=== PATIENT | female | born 1990 | race Caucasian/White ===

== ENCOUNTER → 2023-01-11 | Outpatient (CLI) | payer OTHER, SELFPAY ==
[2023-01-11 16:19] LABS: Hemoglobin A1c 5.6 % (3.8-5.6)
[2023-01-11 16:36] LABS: T4 Free Direct 0.93 ng/dL (0.76-1.46); Thyroid Stim Hormone (TSH) 1.11 uIU/mL (0.358-3.74)
== END | disposition home or self-care (01) ==
LOC: LAB 15:08
PROVIDERS: PCP Family Medicine; Visit Provider Registered Nurse
DX: N92.6 Irregular menstruation, unspecified (principal); Z86.711 Personal history of pulmonary embolism
CPT/HCPCS: 36415; 81241; 83036; 84439; 84443; 85245

== ENCOUNTER 2023-02-22 20:07 | Emergency (ER) | payer OTHER, SELFPAY ==
[2023-02-22 20:11] VITALS: BP 108/74; PULSE 73; RESP 15; TEMP 36.8; O2SAT 100; BMI 33.3
--- NOTE | 2023-02-22 20:34 | US_ITS ---
STUDY: ULTRASOUND TRANSVAGINAL CLINICAL: Female, 32 years old. right sided pelvic pain TECHNIQUE: Transabdominal and Transvaginal COMPARISON: None. FINDINGS: Normal uterine size measuring 7.7 x 4.8 x 3.4 cm in maximal craniocaudal dimension. There are no myometrial masses. Normal endometrial thickness measuring 2 mm. There are no endometrial masses, and there is no fluid in the endometrial cavity. Normal uterine cervix. Normal right ovary, measuring 3.0 x 2.7 x 1.3 cm. There are multiple follicles without a dominant cyst. Normal blood flow. Normal left ovary, measuring 2.8 x 2.5 x 1.8 cm. There are multiple follicles without a dominant cyst. Normal blood flow. There is no free fluid in the pelvis. Polycystic ovary disease: No. US/Transvaginal Non- IMPRESSION: No definite acute or significant abnormality seen. Electronically Signed: Luis Enrique Zepeda MD at 21:54 EDT ,
--- NOTE | 2023-02-22 20:37 | EX.ED.DYSGE1 ---
HPI History of Present Illness Chief Complaint: Abd Pain Informant: patient Onset/Context/Timing Onset: Days Context: Gradual Onset Narrative Narrative: Patient presents secondary to right lower quadrant abdominal pain. Patient states that she started developing pain about 5 days ago when she started spotting. Her period started yesterday and the pain worsened. She states something similar happened a month ago. She was evaluated at another facility at that time and a CT scan revealed no evidence of free fluid, ovarian cyst, or appendicitis. Patient is currently on Cipro for UTI. She just completed a course of Macrobid. She has had chills but no fever. PFSH PFS Medical History Anxiety and depression Dysmenorrhea Hx pulmonary embolism Infertility no medical history Allergy/AdvReac Type Severity Reaction Status Date / Time hydromorphone [From Dilaudid] Allergy Hives Verified 02/22/23 20:17 Sulfa (Sulfonamide Allergy Diarrhea Verified 02/22/23 20:16 Antibiotics) Family History Father Heart disease Hypertension Social History Smoking Status: Never smoker ROS ROS ED Constitutional Constitutional ED: Denies chills or fever(s) Eyes Eyes: Denies change in vision or discharge from eye(s) ENT ENT ED: Denies discharge from eye(s), rhinorrhea or sore throat Cardiovascular Cardiovascular: Denies chest pain or palpitations Respiratory/Chest Respiratory/Chest: Denies cough or dyspnea Gastrointestinal Gastrointestinal: Reports abdominal pain; Denies diarrhea, nausea or vomiting Genitourinary Genitourinary ED: Reports dysuria; Denies difficulty urinating Musculoskeletal Musculoskeletal: Denies back pain or extremity pain Integumentary Denies Abrasions or rash Neurologic Neurologic: Denies headache(s) or weakness Psychiatric Psychiatric: Denies anxiety or depression Allergic/Immunologic Allergic/Immunologic ED: Denies lip swelling or urticaria EXAM Physical Exam Const Vital Signs: 02/22/23 20:11 Temperature 98.3 F Temperature Source Temporal Pulse Rate 73 Respiratory Rate 15 Blood Pressure 108/74 Blood Pressure Mean 85 Pulse Ox 100 Oxygen Delivery Method Room Air Positive well nourished and well developed General Appearance ED: well developed HEENT Reports moist mucous membranes Eyes PERRL and EOMs intact bilaterally Chest Wall inspection of chest normal and palpation of chest normal Resp normal respiratory effort and clear to auscultation bilaterally Cardio regular rate and regular rhythm GI GI Narrative: Abdomen soft with mild tenderness in the right lower quadrant. No guarding or rebound. Active bowel sounds are noted. Back/Spine no CVA tenderness Neuro oriented x3 and no sensory deficits noted Motor Exam: strength 5/5 throughout Psych mental status grossly normal Skin no rashes or lesions noted MDM MDM MDM Narrative Medical decision making narrative: Labwork obtained to evaluate for leukocytosis, anemia, and electrolyte derangement. Urinalysis obtained to evaluate for infection/hematuria. Pelvic ultrasound obtained to evaluate for ovarian cyst or torsion. Lab Data Attestation: I reviewed the patient's lab results. Labs: Laboratory Results - last 24 hr 02/22/23 02/22/23 20:54 21:35 WBC 8.8 RBC 4.34 Hgb 11.7 L Hct 37.1 MCV 85.5 MCH 27.0 MCHC 31.5 L RDW Std Deviation 41.0 RDW Coeff of Maynor 13.3 Plt Count 221 MPV 9.2 Immature Gran % (Auto) 0.300 Neut % (Auto) 63.7 Lymph % (Auto) 28.4 [place] % (Auto) 5.9 Eos % (Auto) 1.4 Baso % (Auto) 0.3 Absolute Neuts (auto) 5.6 Absolute Lymphs (auto) 2.50 Nucleated RBC % 0 Sodium 139 Potassium 3.6 Chloride 106 Carbon Dioxide 29.0 Anion Gap 4 L BUN 12 Creatinine 0.79 Estim Creat Clear Calc 86.65 Est GFR (MDRD) Af Amer 106 Est GFR (MDRD) Non-Af 88 BUN/Creatinine Ratio 15.1 Glucose 101 Calcium 8.8 Serum , Qual NEGATIVE Urine Color Miya Urine Clarity Cloudy Urine pH 6.0 Ur Specific [place] 1.010 Urine Protein 30 H Urine Glucose (UA) Normal Urine Ketones 5 H Urine Occult Blood 250 H Urine Nitrite Negative Urine Bilirubin Negative Urine Urobilinogen Normal Ur Leukocyte Esterase 100 H Urine RBC > 100 SEEN Urine WBC 0 SEEN Ur Squamous Epith Cells 0-5 SEEN Urine Bacteria 0 SEEN Urine Mucus 0 SEEN Radiography Diagnostic Testing: Clinical Impression(s) from Imaging Studies Transvaginal US 02/22/23 20:34 IMPRESSION: No definite acute or significant abnormality seen. Electronically Signed: Luis Enrique Zepeda MD at 21:54 EDT , Treatment and Re-Evaluation :: Patient was given Toradol and IV fluids. CBC was normal white count 8.8 with normal differential. Hemoglobin is 11.7. Chemistry studies unremarkable. test is negative. Urinalysis reveals RBCs with patient is currently on her menstrual cycle. 0 bacteria are noted. Urine has been sent for culture. Pelvic ultrasound reveals no acute or significant abnormality noted. No obvious free fluid in the pelvis and no ovarian cyst. Good blood flow noted to both ovaries. Test results are discussed with the patient. She does seem to have pain that corresponds with her menstrual cycle. If she does not have an ovarian cyst that is responding to the hormone fluctuations, she may have endometriosis. She will follow-up with her [employer]. Return instructions were provided. Discharge Plan Triage Chief Complaint: Abd Pain ED Provider: Maddie Le Dx/Rx/DC Orders Clinical Impression: Pelvic pain Instructions: ED Pelvic Pain, Unknown Cause Primary Care Provider: Lindsey Farrell Referrals: Lindsey Farrell DO [Primary Care Provider] - Chelsea Valencia CNM [Med Staff - Adv Practice Prof] - 1-2 Weeks Disposition Disposition: Home, Self Care
[2023-02-22 21:02] LABS: Absolute Neutrophil Count 5.6 X10^3/uL (2.0-7.7); Basophil# 0.03 X10^3/uL; Basophil% 0.3 % (0-1); Eosinophil# 0.12 X10^3/uL; Eosinophils% 1.4 % (0-5); Hematocrit 37.1 % (37-47); Hemoglobin 11.7 g/dL (12.0-15.0); Lymphocyte % 28.4 % (19-41); Mean Corp Hgb Conc 31.5 g/dL (32-36); Mean Corpuscular Volume 85.5 fL (81-99); Mean Platelet Vol. 9.2 fl (6.2-12.0); Monocyte# 0.52 X10^3/uL; Monocyte% 5.9 % (0-10); NRBC Flagged by Analyzer 0 % (0-5); Neutrophil # 5.61 X10^3/uL (2.7-7.7); Neutrophil % 63.7 % (47-70); Platelet Count 221 K/mm3 (150-450); RBC Distribution Width CV 13.3 % (11.6-14.6); Red Blood Count 4.34 M/mm3 (4.2-5.4); White Blood Count 8.8 K/mm3 (4.4-11.0)
[2023-02-22 21:12] LABS: Internal QC Validated? YES +Cl - CLEAR BKGD; Pregnancy, Serum, hCG Quali. NEGATIVE Negative
[2023-02-22 21:15] LABS: Anion Gap 4 (5-15); BUN 12 mg/dL (7-18); BUN/Creat Ratio 15.1 RATIO (10-20); Calcium,Total 8.8 mg/dL (8.5-10.1); Chloride 106 mmol/L (98-107); Creatinine, Serum 0.79 mg/dL (0.55-1.02); EST Glomerular Filtration Rate 88 mL/min (>60); Est Glom Filt Rate - Afr Amer 106 mL/min (>60); Estimated Creatinine Clearance 86.65 ml/min; Glucose 101 mg/dL (74-106); Potassium 3.6 mmol/L (3.5-5.1); Sodium Level 139 mmol/L (136-145)
[2023-02-22] MEDS: 0.9% Normal Saline 1,000 ML 150 ML IV (21:40)
[2023-02-22] MEDS: Ketorolac 30 MG/ML Syringe IV (21:40)
[2023-02-22 21:48] LABS: Bacteria 0 SEEN /hpf (None Seen); Mucous, Urine 0 SEEN /hpf (<or=2+); White Blood Cells 0 SEEN /hpf (0-5)
[2023-02-22 21:49] LABS: Color, Urine Amber (Yellow); Glucose, Dipstick Normal (Normal); Ketone-Dipstick 5 mg/dl (Negative); Leukocyte Esterase-Dipstick 100 /ul (Negative); Nitrite-Dipstick Negative (Negative); Occult Blood-Urine 250 /ul (Negative); Protein-Dipstick 30 mg/dl (Negative); Urine Bilirubin Dipstick Negative (Negative); Urine Clarity Cloudy (Clear); Urine Urobilinogen Normal (Normal)
[2023-02-22 22:25] LABS: Red Blood Cells-Urine > 100 SEEN /hpf (0-5); Squamous Epithelial Cells - UA 0-5 SEEN /hpf (5-10)
== END 2023-02-22 23:00 | disposition home or self-care (01) ==
PROVIDERS: Emergency Provider Emergency Medicine; PCP Family Medicine; Visit Provider Emergency Medicine
DX: R10.2 Pelvic and perineal pain (principal)
CPT/HCPCS: 76830; 80048; 81001; 84703; 85025; 87086; 93976; 96361; 96374; 99282; J7030; A4216

== ENCOUNTER 2023-04-24 12:56 | Emergency (ER) | payer BC, SELFPAY ==
[2023-04-24 12:57] VITALS: BP 118/71; PULSE 60; RESP 18; TEMP 36.9; O2SAT 97
[2023-04-24 13:03] VITALS: BMI 31.8
--- NOTE | 2023-04-24 13:38 | EDS_ITS ---
HPI History of Present Illness Chief Complaint: Syncope Informant: patient and spouse/S.O. Onset/Context/Timing Onset: Today Timing: Lasts (Few seconds to less than a minute) Quality: Syncope Location: Generalized Worsened by: Nothing Relieved by: Nothing Narrative Narrative: Patient presents with a syncopal episode that occurred today. Patient was having a hysterosalpingogram. Patient states that they noticed a polyp and tried to remove it. Patient states this was painful. Patient states they stopped doing the procedure and she started to get dressed. Patient states while she was standing after she got dressed she felt lightheaded and passed out. reports that he was told that her arms clenched up and her elbows flexed just prior to her passing out. states that she was only out for few seconds to less than a minute. Patient remembers waking up on the floor wi th people around her. Patient denies any chest pain or palpitations. Patient denies any shortness of breath or cough. Currently, patient feels better laying flat in the bed. PFSH PFS Medical History Anxiety and depression Dysmenorrhea Hx pulmonary embolism Infertility Home Medications fluticasone propionate 50 mcg/actuation nasal spray,suspension (Flonase Allergy Relief) 1 spray intranasal DAILY 03/07/23 [History Last Taken Unknown] sertraline 50 mg tablet (Zoloft) 50 mg PO DAILY 04/05/23 [History Last Taken Unknown] Allergy/AdvReac Type Severity Reaction Status Date / Time hydromorphone [From Dilaudid] Allergy Hives Verified 04/24/23 13:05 Sulfa (Sulfonamide Allergy Diarrhea Verified 04/24/23 13:05 Antibiotics) Family History Father Heart disease Hypertension Surgical History no surgical history no surgical history Social History Smoking Status: Never smoker ROS ROS ED Constitutional Constitutional ED: Denies chills or fever(s) Eyes Eyes: Denies blurry vision or change in vision ENT ENT ED: Denies rhinorrhea or sore throat Cardiovascular Cardiovascular: Denies chest pain or palpitations Respiratory/Chest Respiratory/Chest: Denies cough or dyspnea Gastrointestinal Gastrointestinal: Denies nausea or vomiting Genitourinary Genitourinary ED: Denies dysuria or hematuria Musculoskeletal Musculoskeletal: Denies back pain or neck pain Integumentary Reports rash; Denies abscess Neurologic Neurologic: Reports weakness; Denies headache(s) Allergic/Immunologic Allergic/Immunologic ED: Denies mouth swelling or urticaria EXAM Physical Exam Const Vital Signs: 04/24/23 12:57 04/24/23 13:03 Temperature 98.4 F Temperature Source Oral Pulse Rate 60 Respiratory Rate 18 Respiratory Effort Normal Non-Labored Respiratory Pattern Normal Blood Pressure 118/71 Blood Pressure Mean 86 Pulse Ox 97 Oxygen Delivery Method Room Air Positive well nourished and well developed General Appearance ED: well developed HEENT Reports moist mucous membranes Neck supple and no JVD Resp normal respiratory effort and clear to auscultation bilaterally Cardio regular rate and regular rhythm GI normal to inspection, nondistended, normoactive bowel sounds and non-tender Palpation: soft Extremity normal to inspection General Extremety ED: Negative for edema or tenderness General Extremity: Negative for edema Neuro oriented x3, CN's II-XII intact bilaterally and no sensory deficits noted Sensorium / Orientation: alert Motor Exam: strength 5/5 throughout Psych mental status grossly normal Skin no rashes or lesions noted MDM MDM MDM Narrative Medical decision making narrative: Differential diagnosis includes vasovagal reaction, dehydration, cardiac dysrhythmia, atypical seizure, and intracranial bleeding. CT scan of the brain will be obtained to assess for intracranial bleeding. CBC will be obtained to assess for leukocytosis and anemia. Basic metabolic profile will be obtained to assess for electrolyte abnormality and renal function. EKG will be obtained to assess for cardiac dysrhythmia. Urinalysis will be obtained to assess for urinary tract infection. Lab Data Attestation: I reviewed the patient's lab results. Lab results narrative: CBC was reviewed and was within normal limits. Basic metabolic profile was reviewed and was within normal limits. Serum hCG was reviewed and was negative. Urinalysis was reviewed. Occult blood was 250 with greater than 100 red blood cells. There were 5-10 epithelial cells. This is most likely due to her proce dure. There is no evidence of urinary tract infection. Labs: Laboratory Results - last 24 hr 04/24/23 04/24/23 14:20 14:57 WBC 9.5 RBC 4.75 Hgb 12.5 Hct 40.2 MCV 84.6 MCH 26.3 L MCHC 31.1 L RDW Std Deviation 40.5 RDW Coeff of Maynor 13.2 Plt Count 250 MPV 8.9 Immature Gran % (Auto) 0.500 Neut % (Auto) 71.4 H Lymph % (Auto) 20.7 [place] % (Auto) 5.5 Eos % (Auto) 1.5 Baso % (Auto) 0.4 Absolute Neuts (auto) 6.8 Absolute Lymphs (auto) 1.96 Nucleated RBC % 0 Sodium 138 Potassium 4.1 Chloride 103 Carbon Dioxide 28.0 Anion Gap 7 BUN 16 Creatinine 0.75 Estim Creat Clear Calc 91.27 Est GFR (MDRD) Af Amer 114 Est GFR (MDRD) Non-Af 94 BUN/Creatinine Ratio 21.4 H Glucose 91 Calcium 9.4 Serum , Qual NEGATIVE Urine Color Yellow Urine Clarity Clear Urine pH 8.0 Ur Specific [place] 1.015 Urine Protein 15 H Urine Glucose (UA) Normal Urine Ketones Negative Urine Occult Blood 250 H Urine Nitrite Negative Urine Bilirubin Negative Urine Urobilinogen Normal Ur Leukocyte Esterase 25 H Urine RBC > 100 SEEN Urine WBC 0-5 SEEN Ur Squamous Epith Cells 5-10 SEEN Urine Bacteria 0 SEEN Urine Mucus 0 SEEN Radiography Diagnostic Testing: Clinical Impression(s) from Imaging Studies Brain CT 04/24/23 13:43 IMPRESSION: Normal unenhanced CT scan of the brain. Electronically Signed: Vernon Quinonez MD at 15:19 EDT Reading Location ID and State: [facility] / [place] , Service support , CT scan of the brain was obtained. There is no acute intracranial abnormality. This was interpreted by the radiologist and was also independently reviewed by myself. Treatment and Re-Evaluation :: Patient was given IV fluids. Patient is feeling better on reevaluation. Orthostatic vital signs were obtained and were within normal limits. Patient was advised of her findings. Patient was instructed to drink plenty of fluids. Patient was instructed to follow-up with her primary care physician and RN PERIOPERATIVE in 5 to 7 days. Patient understands and is agreeable with the plan. All ques tions were answered. Discharge Plan Triage Chief Complaint: Syncope ED Provider: Frank Ferguson Dx/Rx/DC Orders Clinical Impression: Syncope and collapse Instructions: ED Fainting, Vagal Reaction Prescriptions: No Action fluticasone propionate [Flonase Allergy Relief] 50 mcg/actuation spray,suspension 1 spray intranasal DAILY Rx Instructions: administer into each nostril sertraline [Zoloft] 50 mg tablet 50 mg PO DAILY Primary Care Provider: Lindsey Farrell Referrals: Lindsey Farrell DO [Primary Care Provider] - 5-7 Days Disposition Disposition: Home, Self Care
--- NOTE | 2023-04-24 13:43 | CT_ITS ---
STUDY: CT BRAIN WITHOUT CONTRAST REASON FOR EXAM: Female, 32 years old. Syncope RADIATION DOSAGE (If Supplied By Facility): CTDIvol = ( 44.99 ) mGy, DLP = ( 762.36 ) mGycm TECHNIQUE: Transaxial CT imaging of the brain was performed without administration of intravenous contrast material. Individualized dose optimization techniques were used for this CT. COMPARISON: No relevant priors. FINDINGS: Normal soft tissue structures. Normal calvarium. Normal size ventricles and extra-axial spaces for the patient''s age. Normal white matter tracts of the cerebral hemispheres. Normal basal ganglia and thalami. Normal brainstem. Normal cerebellum. There is no intracranial hemorrhage. There are no findings of an acute ischemic infarction. Normal visualized paranasal sinuses. CT/Brain/Head without Contrast IMPRESSION: Normal unenhanced CT scan of the brain. Electronically Signed: Vernon Quinonez MD at 15:19 EDT ,
[2023-04-24] MEDS: 0.9% Normal Saline (1000mL) 1,000 ML 1000 ML IV (14:21)
[2023-04-24 14:28] LABS: Absolute Lymphocyte Count 1.96 X10^3/uL (0.83-4.51); Absolute Neutrophil Count 6.8 X10^3/uL (2.0-7.7); Basophil# 0.04 X10^3/uL; Basophil% 0.4 % (0-1); Eosinophil# 0.14 X10^3/uL; Eosinophils% 1.5 % (0-5); Hematocrit 40.2 % (37-47); Hemoglobin 12.5 g/dL (12.0-15.0); Lymphocyte # 1.96 X10^3/ul (0.83-4.51); Lymphocyte % 20.7 % (19-41); Mean Corp Hgb Conc 31.1 g/dL (32-36); Mean Corpuscular Hgb 26.3 pg (27.0-32.0); Mean Corpuscular Volume 84.6 fL (81-99); Mean Platelet Vol. 8.9 fl (6.2-12.0); Monocyte# 0.52 X10^3/uL; Monocyte% 5.5 % (0-10); NRBC Flagged by Analyzer 0 % (0-5); Neutrophil # 6.76 X10^3/uL (2.7-7.7); Neutrophil % 71.4 % (47-70); Platelet Count 250 K/mm3 (150-450); RBC Distribution Width CV 13.2 % (11.6-14.6); RBC Distribution Width SD 40.5 fl (35.1-43.9); Red Blood Count 4.75 M/mm3 (4.2-5.4); White Blood Count 9.5 K/mm3 (4.4-11.0)
[2023-04-24 14:41] LABS: Internal QC Validated? YES +Cl - CLEAR BKGD; Pregnancy, Serum, hCG Quali. NEGATIVE Negative; Record Kit Lot#, Serum Preg. HCG0000667200
[2023-04-24 14:46] LABS: Anion Gap 7 (5-15); BUN 16 mg/dL (7-18); BUN/Creat Ratio 21.4 RATIO (10-20); Calcium,Total 9.4 mg/dL (8.5-10.1); Chloride 103 mmol/L (98-107); Creatinine, Serum 0.75 mg/dL (0.55-1.02); EST Glomerular Filtration Rate 94 mL/min (>60); Est Glom Filt Rate - Afr Amer 114 mL/min (>60); Estimated Creatinine Clearance 91.27 ml/min; Glucose 91 mg/dL (74-106); Potassium 4.1 mmol/L (3.5-5.1); Sodium Level 138 mmol/L (136-145)
[2023-04-24 15:05] LABS: Bacteria 0 SEEN /hpf (None Seen); Mucous, Urine 0 SEEN /hpf (<or=2+)
[2023-04-24 15:09] LABS: Color, Urine Yellow (Yellow); Glucose, Dipstick Normal (Normal); Ketone-Dipstick Negative (Negative); Leukocyte Esterase-Dipstick 25 /ul (Negative); Nitrite-Dipstick Negative (Negative); Occult Blood-Urine 250 /ul (Negative); Protein-Dipstick 15 mg/dl (Negative); Specific Gravity, Urine 1.015 (1.002-1.030); Urine Bilirubin Dipstick Negative (Negative); Urine Clarity Clear (Clear); Urine Urobilinogen Normal (Normal)
[2023-04-24 15:27] LABS: Red Blood Cells-Urine > 100 SEEN /hpf (0-5); White Blood Cells 0-5 SEEN /hpf (0-5)
[2023-04-24 15:28] LABS: Squamous Epithelial Cells - UA 5-10 SEEN /hpf (5-10)
[2023-04-24 15:35] VITALS: BP 103/71; BP 112/66; BP 115/66; PULSE 65; PULSE 66
== END 2023-04-24 15:42 | disposition home or self-care (01) ==
PROVIDERS: Emergency Provider Emergency Medicine; PCP Family Medicine; Visit Provider Emergency Medicine
DX: R55 Syncope and collapse (principal); Z86.711 Personal history of pulmonary embolism
CPT/HCPCS: 70450; 80048; 81001; 84703; 85025; 96360; 99285; J7030; A4216

== ENCOUNTER → 2023-04-24 | Outpatient (CLI) | payer BC, SELFPAY | END | disposition home or self-care (01) | PROVIDERS: PCP Family Medicine; Referring Provider Obstetrics & Gynecology; Visit Provider Obstetrics & Gynecology | DX: Z00.00 Encounter for general adult medical examination without abnormal findings (principal) ==

== ENCOUNTER 2023-05-23 08:29 | Day surgery (SDC) | payer BC, SELFPAY ==
[2023-05-10 14:33] LABS: Hematocrit 38.6 % (37-47); Hemoglobin 12.2 g/dL (12.0-15.0); Mean Corp Hgb Conc 31.6 g/dL (32-36); Mean Corpuscular Hgb 26.6 pg (27.0-32.0); Mean Corpuscular Volume 84.1 fL (81-99); Mean Platelet Vol. 8.7 fl (6.2-12.0); Platelet Count 219 K/mm3 (150-450); RBC Distribution Width CV 13.2 % (11.6-14.6); RBC Distribution Width SD 40.5 fl (35.1-43.9); Red Blood Count 4.59 M/mm3 (4.2-5.4); White Blood Count 7.1 K/mm3 (4.4-11.0)
[2023-05-23] VITALS (7 sets, daily range): BP systolic 115–134; BP diastolic 64–95; PULSE 59–103; RESP 14–18; TEMP 36.2–37.1; O2SAT 94–99; BMI 32.1
--- NOTE | 2023-05-23 | EMB_PTH ---
PATIENT: SHIRA LOPEZ LOC: [facility] – [place] U#:[id number] AGE/SX: 32/F ROOM: RE05/23/[address]: Dr. Maddie Medina DO : 1990 BED: DIS: 05/23/2023 SPEC #: [id number] RECD: 05/23/23 15:12 STATUS: MALACHI SELBY #: [id number] SERAFIN: 05/23/23 00:[address]: Maddie Medina DEPT: SURGICAL PATHOLOGY RECD BY: Flash Kellogg ENTERED: 05/24/23 09:52 SP TYPE: ENDOM BX/C OTHR DR: Dr. Lindsey Farrell DO Tissues: Endometrium, NOS Procedures: Surgery Specimen Level IV HEADER OPERATION: Hysteroscopy, dilation and curettage, polypectomy PRE-OP DIAGNOSIS: Endocervical polyp, bladder pain, irregular menses, dysmenorrhea, recurrent UTI TISSUE SUBMITTED: Polyp and endometrial curettings/shavings MICROSCOPIC DIAGNOSIS Endometrium, curettings: Benign endocervical polyps, inflamed. Polypoid fragments of secretory endometrium with decidual-like change. AM:hillary 05/25/2023 MICROSCOPIC DESCRIPTION Slides are reviewed. GROSS DESCRIPTION Received in fixative is one container labeled with the patient's name and designated endometrial curettings and polyp. The specimen consists of multiple irregular and polypoid fragments of light to dark maldonado soft tissue that in aggregate measure 8.0 x 3.0 x 0.3 cm. The largest fragments are sectioned and submitted along with the smaller fragments in four cassettes. / AM:hillary 05/24/2023 TC: 5 CPT: 04791
[2023-05-23 09:19] LABS: Internal QC Validated? YES +Cl - CLEAR BKGD; Pregnancy, Urine Negative Negative
[2023-05-23] MEDS: Lactated Ringers 1,000 ML 15 ML IV (09:34)
--- NOTE | 2023-05-23 11:23 | PCM.HP.BLA ---
History and Physical Date of Admission: 05/23/23 Intake Vital Signs 04/27/2313:43 05/11/2312:57 Height 5 ft 4 in 5 ft 4 in Weight: 197 lb 2 oz 197 lb BMI 33.8 33.7 BP 120/78 111/74 Intake Visit Reasons: D&C polypect,diag. lap, chromo, cysto Allergies hydromorphone [From Dilaudid] Allergy (Verified 05/11/23 12:58) HivesSulfa (Sulfonamide Antibiotics) Allergy (Verified 05/11/23 12:58) Diarrhea Medications fluticasone propionate 50 mcg/actuation nasal spray,suspension (Flonase Allergy Relief) 2 spray intranasal DAILY 03/07/23 [History Confirmed 05/11/23] sertraline 50 mg tablet (Zoloft) 50 mg PO DAILY 04/05/23 [History Confirmed 05/11/23] megestrol 40 mg tablet 40 mg PO BID #30 tabs 05/08/23 [Rx Confirmed 05/11/23] Lactobacillus acidophilus 10 billion cell capsule (Probiotic) 100 mmu cells PO DAILY 05/10/23 [History Confirmed 05/11/23] vitamin C 90 mg-zinc gluconate 15 mg-herbal complex no. 325 lozenges 1 luis PO DAILY 05/10/23 [History Confirmed 05/11/23] metronidazole 500 mg tablet 500 mg PO BID 7 days #14 tabs 05/11/23 [Rx Confirmed 05/11/23] Post menopausal: No Patient : No : No PFSH Medical History Anxiety Anxiety and depression Back pain Blackout Depression Dysmenorrhea Gastric reflux History of IBS Hx pulmonary embolism Infertility Injury of back Wears contact lenses Wears glasses Family History Father Heart disease Hypertension Social History Smoking Status: Never smoker HPI D&C polypect,diag. lap, chromo, cysto Details: SHIRA LOPEZ is a 32 year old who presents for pre-op exam. She has a large cervical polyp and infertility. An HSG was attempted and was not completed due to presence of a large polyp. She has the complaint of urinary frequency prior to menses. The plan is to look in the uterus and bladder and to perform a diagnostic laparoscopy, chromopertubation, hysteroscopy dilation and curettage, cervical polypectomy, and cystoscopy. ROS Const ROS Unobtainable: All systems reviewed & are unremarkable except as noted in H Resp Resp: Reports system reviewed and no additional complaints, except as documented; Denies cough GI GI: Reports as per HPI Psych Psych: Reports system reviewed and no additional complaints, except as documented Exam Const General: cooperative, healthy appearing, comfortable and no acute distress Resp Effort & Inspection: normal respiratory effort Skin General: no rashes or lesions noted Psych Appearance: grossly normal Speech and Movement: speech and movement normal Coding Level of Care Code Off vis,est,level 4 Diagnoses Endocervical polyp N84.1 Chronic bladder pain R39.82 Recurrent UTI N39.0 Irregular menses N92.6 Dysmenorrhea N94.6 Anxiety and depression F41.9; F32.A Assessment and Plan Assessment and Plan (1) Endocervical polyp: Status: Acute Comment: plan polypectomy (2) Chronic bladder pain: Status: Acute Comment: recommend cystoscopy (3) Recurrent UTI: Status: Acute (4) Irregular menses: Status: Acute Comment: suspect cervical polyp as etiology (5) Dysmenorrhea: Status: Acute Comment: US and recommend d and c hysteroscopy polypectomy, diagnostic laparoscopy, chromotubation and cystoscopy. (6) Anxiety and depression: Status: Acute Medications: New metronidazole 500 mg PO BID 7 days 14 tabs 0RF Plan After discussing the patient's diagnosis and treatment plan options, patient wishes to proceed with surgical management including a diagnostic laparoscopy, chromopertubation, hysteroscopy dilation and curettage, cervical polypectomy, and cystoscopy. I have discussed with the patient the risks, benefits, and alternatives of the procedure which include but are not limited to risks of anesthesia, bleeding, infection, possible damage to bowel, bladder, or surrounding vasculature which could lead to additional surgery to evaluate any complications. Patient agrees to procedure and wishes to proceed. ACOG/uptodate references given for additional information regarding procedure.
--- NOTE | 2023-05-23 11:24 | DCINST_ITS ---
Discharge Instructions Diet Discharge Diet: No restrictions Activity Discharge Activity: Return to Normal Activity, May Not Drive (for two weeks or while taking narcotic pain medications.), May Shower and May Take a Tub Bath (in 7 days) May resume sexual activity in: 1 week Weight Bearing Status: Full weight bearing Dressing / Incision Call your doctor if you observe: Using more than 1 pad per hour, Shortness of breath, Chest pain and Uncontrolled pain Suture Line Care: Avoid Pulling/Pushing and Avoid Pinching/Bending Remove Dressing in: 1 week (if present) Cleanse incision/area with: Soap & Water and Keep Dressing Clean & Dry Follow Up Care Please Follow Up With: Maddie Medina DO When: Call to make an appointment with your doctor for a follow up incision check in 1-2 weeks. Test Results: Test results from this visit will be discussed in further detail at your follow- up appointment, if applicable. Discharge Plan Admission Primary Reason for Your Visit: laparoscopy, cystoscopy, hysteroscopy dilation and curettage Attending Provider: Maddie Medina Primary Care Provider: Lindsey Farrell Discharge Orders/Prescriptions Prescriptions: New ibuprofen 800 mg tablet 800 mg PO Q8H PRN (Reason: pain) Qty: 30 0RF oxycodone-acetaminophen [Percocet] 5-325 mg tablet 1 tab PO Q4H PRN (Reason: pain) 3 Days Qty: 10 0RF Rx Instructions: 1-2 tabs q 4 hrs as needed for pain Continued fluticasone propionate [Flonase Allergy Relief] 50 mcg/actuation spray,suspension 2 spray intranasal DAILY Rx Instructions: administer into each nostril sertraline [Zoloft] 50 mg tablet 50 mg PO DAILY Probiotic 10 billion cell capsule 100 mmu cells PO DAILY vit C-Zn gluc-herbal no.325 90-15 mg lozenge 1 luis PO DAILY megestrol 40 mg tablet 40 mg PO BID Qty: 30 0RF Referrals / Follow Up: Lindsey Farrell DO [Primary Care Provider] - Disposition Disposition (needs filled in before D/C Order can be placed): Home, Self Care
[2023-05-23] MEDS: Bupivacaine 0.25% 30 ML Vial (12:29)
--- NOTE | 2023-05-23 12:56 | OP.PCM_ITS ---
Problems Associated Problem List Diagnoses (1) Endocervical polyp: (2) Chronic bladder pain: (3) Recurrent UTI: (4) Irregular menses: (5) Dysmenorrhea: (6) Infertility: Report of Operation Date of Procedure: 05/23/23 Pre-Operative Diagnosis: pelvic pain, infertility, endocervical polyp, chronic uti and bladder pain Post-Operative Diagnosis: pelvic pain, infertility, endocervical polyp, chronic uti and bladder pain, patent left fallopian tube, endometriosis on right ovary and cul-de-sac. Surgery/Procedure Performed:: hysteroscopy, polypectomy, cystoscopy, diagnostic laparoscopy, chromopertubation Description of Surgical Findings:: large endocervical polyp extending the length of the anterior uterine body, normal bladder, right ovarian and cul-de sac and uterosacral ligament en dometriosis, patent left fallopian tube, normal left ovary. small subserosal uterine fibroids. Surgeon: Maddie Medina color stripper: Amada Solis Type of Anesthesia: General Specimen's removed: endometrial curetting and endocervical polyp Drains: none Estimated Blood Loss (mL): 10cc Description of Procedure: The patient was brought to the operating room where general anesthesia was administered. She was prepped and draped in the normal sterile fashion in a dorsal supine position with legs in stirrups. Weighted speculum was placed in the vagina and the anterior lip of the cervix was grasped with a single-tooth tenaculum. There was noted to be a large endocervical polyp protruding through the cervix this was grasped with a polyp forceps and twisted and pulled until removal. The cervix was dilated to 5 mm and a 5 mm hysteroscope was placed into the uterus. There was noted to be extension of the endocervical polyp to the anterior aspect of the uterus up to the fundus. Using the Symphion on device the polyp was removed in its entirety. The Endo medial canal appeared normal with normal tubal ostia. Next, a cystoscopy was performed using a 70 degree cystoscope through the [facility]. Approximately 100 cc of saline was inserted into the bladder the dome of the bladder and sidewalls of the bladder all appeared to be normal the trigone of the bladder was also normal with normal ureteral orifices. There were no signs of ulceration masses or lesions in the bladder. Next, a uterine manipulator was inserted into the cervix and uterus in order to complete the next portion of the procedure which included a chromopertubation of the fallopian tubes. Gloves were changed and attention was turned towards the abdomen. An infraumbilical skin incision was made with a scalpel and a 5 mm trocar was inserted into the abdomen while tenting up the skin using towel clamps. Good entry was noted and the CO2 gas was used to insufflate the abdomen. The patient was placed in Trendelenburg position. The uterus was first identified and noted to have a small subserosal fibroid on the left fundus as well as the right side of the uterus just superior to the fallopian tube entry. The methylene blue dye was pushed through the uterine manipulator and there was noted to be spillage coming from the left fallopian tube only the device was replaced and adjusted and more methylene blue dilute contrast was inserted into the uterus but again did not show spillage from the right fallopian tube. There was however noted to be endometriosis in the cul-de-sac over the right uterosacral ligament that was adhering the right ovary to the cul-de-sac. Using irrigation this was carefully hydrodissected off of the cul-de-sac. The endometriosis was gently scraped using the suction device. He mostasis was achieved by just applying some pressure. Further survey of the abdomen showed normal bowel normal liver. At this time the procedure was complete all instruments were removed from the abdomen the skin was closed with a 4-0 Monocryl subcuticular stitch. The vaginal instruments were removed. The bladder was also drained of approximately 200 cc of urine with a straight catheter. The patient tolerated the procedure well sponge lap and needle counts were correct x2 and she is now being brought to the recovery room in stable condition. Complications none Admit VTE Documentation VTE Present on Admission: No VTE Mechan Device Prophylaxis: SCD's VTE Pharm Prophylaxis ordered?: No Multi Select Codes Urinary/Genital Urinary/Genital CPT Codes: 72798 Cystoscopy, 33803 Chromotubation, 84437 Hysteroscopy,EMC, Polypectomy and 19758 Lysis of adhesions, laproscopic
[2023-05-23] MEDS: Oxycodone/Apap 5/325 Tablet PO (14:17)
== END 2023-05-23 15:18 | disposition home or self-care (01) ==
LOC: SDC 08:33 → AC 08:33
PROVIDERS: Anesthesiology; PCP Family Medicine; Referring Provider Obstetrics & Gynecology; Visit Provider Obstetrics & Gynecology
PROC: 0UB98ZZ Excision of Uterus, Via Natural or Artificial Opening Endoscopic (ICD-10-PCS; CPT 58558; principal; 2023-05-23 10:45)
PROC: (CPT 49320; 2023-05-23 10:45)
DX: D25.2 Subserosal leiomyoma of uterus (principal); N39.0 Urinary tract infection, site not specified; N97.9 Female infertility, unspecified; R39.82 Chronic bladder pain; N92.6 Irregular menstruation, unspecified; N80.101 Endometriosis of right ovary, unspecified depth; N94.6 Dysmenorrhea, unspecified; F32.A Depression, unspecified; F41.9 Anxiety disorder, unspecified
CPT/HCPCS: 58558; 58662; 00952; 81025; 85027; 86850; 86900; 86901; 88305; J7120; J2405; Q9968

== ENCOUNTER → 2023-06-02 | Outpatient (CLI) | payer BC, SELFPAY ==
[2023-06-02 17:17] LABS: Absolute Lymphocyte Count 2.52 X10^3/uL (0.83-4.51); Absolute Neutrophil Count 5.8 X10^3/uL (2.0-7.7); Basophil# 0.06 X10^3/uL; Basophil% 0.7 % (0-1); Eosinophil# 0.17 X10^3/uL; Eosinophils% 1.9 % (0-5); Hemoglobin 12.7 g/dL (12.0-15.0); Lymphocyte # 2.52 X10^3/ul (0.83-4.51); Lymphocyte % 27.6 % (19-41); Mean Platelet Vol. 9.2 fl (6.2-12.0); Monocyte# 0.56 X10^3/uL; Monocyte% 6.1 % (0-10); NRBC Flagged by Analyzer 0 % (0-5); Neutrophil # 5.79 X10^3/uL (2.7-7.7); Neutrophil % 63.3 % (47-70); Platelet Count 289 K/mm3 (150-450); RBC Distribution Width CV 13.3 % (11.6-14.6); Red Blood Count 4.88 M/mm3 (4.2-5.4); White Blood Count 9.1 K/mm3 (4.4-11.0)
== END | disposition home or self-care (01) ==
LOC: LAB 16:53
PROVIDERS: PCP Family Medicine; Visit Provider Obstetrics & Gynecology
DX: N92.6 Irregular menstruation, unspecified (principal)
CPT/HCPCS: 36415; 85025

== ENCOUNTER → 2023-06-07 | Outpatient (CLI) | payer BC, SELFPAY ==
[2023-06-07 10:50] LABS: NATERA MAILED SPECIMEN
== END | disposition home or self-care (01) ==
LOC: LAB 09:44
PROVIDERS: PCP Family Medicine; Visit Provider Obstetrics & Gynecology
DX: Z15.01 Genetic susceptibility to malignant neoplasm of breast (principal); Z80.3 Family history of malignant neoplasm of breast
CPT/HCPCS: 36415

== ENCOUNTER → 2023-07-17 | Outpatient (CLI) | payer BC, SELFPAY ==
[2023-07-17 14:00] LABS: hCG Titer Quant., Serum 63 mIU/mL (1-3)
== END | disposition home or self-care (01) ==
PROVIDERS: PCP Family Medicine; Referring Provider Obstetrics & Gynecology; Visit Provider Obstetrics & Gynecology
DX: N91.2 Amenorrhea, unspecified (principal)
CPT/HCPCS: 36415; 84702

== ENCOUNTER → 2023-07-19 | Outpatient (CLI) | payer BC, SELFPAY ==
[2023-07-19 08:34] LABS: hCG Titer Quant., Serum 108 mIU/mL (1-3)
== END | disposition home or self-care (01) ==
LOC: LAB 07:20
PROVIDERS: PCP Family Medicine; Referring Provider Obstetrics & Gynecology; Visit Provider Obstetrics & Gynecology
DX: N91.2 Amenorrhea, unspecified (principal)
CPT/HCPCS: 36415; 84702

== ENCOUNTER → 2023-07-21 | Outpatient (CLI) | payer BC, SELFPAY ==
[2023-07-21 10:06] LABS: hCG Titer Quant., Serum 360 mIU/mL (1-3)
== END | disposition home or self-care (01) ==
LOC: LAB 07:03
PROVIDERS: PCP Family Medicine; Referring Provider Obstetrics & Gynecology; Visit Provider Obstetrics & Gynecology
DX: Z34.90 Encounter for supervision of normal pregnancy, unspecified, unspecified trimester (principal)
CPT/HCPCS: 36415; 84702

== ENCOUNTER → 2023-07-25 | Outpatient (CLI) | payer BC, SELFPAY ==
[2023-07-25 09:03] LABS: hCG Titer Quant., Serum 1946 mIU/mL (1-3)
== END | disposition home or self-care (01) ==
PROVIDERS: PCP Family Medicine; Referring Provider Obstetrics & Gynecology; Visit Provider Obstetrics & Gynecology
DX: N91.2 Amenorrhea, unspecified (principal)
CPT/HCPCS: 36415; 84702

== ENCOUNTER 2023-08-03 18:55 | Emergency (ER) | payer BC, SELFPAY ==
[2023-08-03 18:56] VITALS: BP 125/65; PULSE 74; RESP 14; TEMP 36.3; O2SAT 100; BMI 33.2
[2023-08-03 19:26] VITALS: BP 119/73; PULSE 72; RESP 16; O2SAT 99
--- NOTE | 2023-08-03 19:52 | US_ITS ---
STUDY: FIRST TRIMESTER OBSTETRICAL ULTRASOUND REASON FOR EXAM: Female, 32 years old bleeding LMP: Unknown. TECHNIQUE: Transvaginal TECHNICAL QUALITY: Adequate. PRIOR ULTRASOUND: None. FINDINGS: There is a gestational sac in the lower uterine segment. The mean sac diameter (MSD) measures 9 mm, indicating an estimated gestational age (EGA) of 5 weeks, 5 days. The gestational sac shape is within normal limits. nt. There is a visualized yolk sac. The yolk sac measures 2 mm. The placenta is non-visualized. There is visualization of a live embryo. The crown-rump length (CRL) measures 4 mm, indicating an estimated gestational age (EGA) of 6 weeks, 2 days. There is demonstrated cardiac activity with a heart rate of 84 bpm. The estimated gestation age (EGA) by LMP is weeks, days. The estimated date of delivery (KEVIN) by LMP is . The estimated gestation age (EGA) by US is 6 weeks, 0 days. The estimated date of delivery (KEVIN) by US is a 1524. The uterus measures 9.0 x 4.3 x 3.9 m. 1.4 cm exophytic subserosal fibroid in the anterior body the uterus. The cervix is closed. The right ovary measures 2.5 x 1.7 x 1.3 cm. There is no right ovarian cyst. There is no visualized right adnexal mass or complex lesion. The left ovary measures 2.4 x 1.9 x 1.4 cm. There is no left ovarian cyst. There is no visualized left adnexal mass or complex lesion. There is no fluid in the cul de sac. US/Transvaginal w/Preg US IMPRESSION: Living intrauterine of 6 weeks 0 days with bradycardia and located within the lower uterine segment worrisome for impending . Follow-up is recommended. N.B. : The above Results were Read Back by Artur Reynoso MD to Maddie Le MD, and understanding confirmed on 08/03/2023 21:29:32 (ET). Electronically Signed: Artur Reynoso MD at 21:30 EST ,
--- NOTE | 2023-08-03 19:53 | EDS_ITS ---
HPI HPI - Female History of Present Illness Chief Complaint: Vag Bld, Preg Informant: patient Narrative Narrative: Patient present secondary to abdominal cramping and spotting. She believes she is approximately 6 weeks . She is scheduled to have an ultrasound next week. Yesterday she started getting some cramping and some light spotting with wiping only. Today bleeding has been slightly heavier. PFSH PFSH Medical History Anxiety Anxiety and depression Back pain Blackout Depression Dysmenorrhea Gastric reflux History of IBS Hx pulmonary embolism Infertility Injury of back Wears contact lenses Wears glasses Home Medications fluticasone propionate 50 mcg/actuation nasal spray,suspension (Flonase Allergy Relief) 2 spray intranasal DAILY 03/07/23 [History Last Taken Unknown] sertraline 50 mg tablet (Zoloft) 50 mg PO DAILY 04/05/23 [History Last Taken Unknown] Lactobacillus acidophilus 10 billion cell capsule (Probiotic) 100 mmu cells PO DAILY 05/10/23 [History Last Taken Unknown] vit no.95-ferrous fumarate 28 mg-folic acid 800 mcg tablet () 1 tab PO DAILY 08/03/23 [History Last Taken Unknown] Allergy/AdvReac Type Severity Reaction Status Date / Time hydromorphone [From Dilaudid] Allergy Hives Verified 08/03/23 18:59 Sulfa (Sulfonamide Allergy Diarrhea Verified 08/03/23 18:59 Antibiotics) Family History Father Heart disease Hypertension Surgical History Status post hysteroscopy (~05/23/23) Social History Smoking Status: Never smoker ROS ROS ED Constitutional Constitutional ED: Denies chills or fever(s) Eyes Eyes: Denies discharge from eye(s) ENT ENT ED: Denies discharge from eye(s), rhinorrhea or sore throat Cardiovascular Cardiovascular: Denies chest pain or palpitations Respiratory/Chest Respiratory/Chest: Denies cough or dyspnea Gastrointestinal Gastrointestinal: Reports abdominal pain; Denies diarrhea, nausea or vomiting Genitourinary Genitourinary ED: Denies dysuria Musculoskeletal Musculoskeletal: Denies back pain or extremity pain Integumentary Denies Abrasions or rash Neurologic Neurologic: Denies headache(s) or weakness Psychiatric Psychiatric: Denies anxiety or depression Allergic/Immunologic Allergic/Immunologic ED: Denies lip swelling or urticaria EXAM Physical Exam Const Vital Signs: 08/03/23 18:56 08/03/23 19:26 Temperature 97.3 F L Temperature Source Temporal Pulse Rate 74 72 Respiratory Rate 14 16 Blood Pressure 125/65 H 119/73 Blood Pressure Mean 85 88 Pulse Ox 100 99 Oxygen Delivery Method Room Air Room Air Positive well nourished and well developed General Appearance ED: well developed HEENT Reports moist mucous membranes Eyes EOMs intact bilaterally Chest Wall inspection of chest normal and palpation of chest normal Resp normal respiratory effort and clear to auscultation bilaterally Cardio regular rate and regular rhythm GI soft to palpation and non-tender Neuro oriented x3 and no sensory deficits noted Motor Exam: strength 5/5 throughout Psych mental status grossly normal Skin no rashes or lesions noted MDM MDM MDM Narrative Medical decision making narrative: I did review patient's prior blood work in the computer and she does have blood type A positive. hCG quant will be obtained at this time as well as a pelvic ultrasound. She declines anything for pain at this time. Lab Data Attestation: I reviewed the patient's lab results. Labs: Laboratory Results - last 24 hr 08/03/23 20:12 HCG, Quant 3643 H Radiography Diagnostic Testing: Clinical Impression(s) from Imaging Studies Obstetrics Ultrasound 08/03/23 19:52 IMPRESSION: Living intrauterine of 6 weeks 0 days with bradycardia and located within the lower uterine segment worrisome for impending . Follow-up is recommended. N.B. : The above Results were Read Back by Artur Reynoso MD to Maddie Le MD, and understanding confirmed on 08/03/2023 21:29:32 (ET). Electronically Signed: Artur Reynoso MD at 21:30 EST , ADDENDUM: 08/03/232136 IMPRESSION: Living intrauterine of 6 weeks 0 days with bradycardia and located within the lower uterine segment worrisome for impending . Follow-up is recommended. N.B. : The above Results were Read Back by Artur Reynoso MD to Maddie Le MD, and understanding confirmed on 08/03/2023 21:29:32 (ET). Electronically Signed: Artur Reynoso MD at 21:30 EST , Treatment and Re-Evaluation Narrative: hCG quant is 3643. Blood type is confirmed from prior records as a positive. Pelvic ultrasound reveals living intrauterine of 6 weeks and 0 days with bradycardia and located within the lower uterine segment worrisome for impending . Test results are discussed with Miya Hernández, on-call for [facility]. She would like to have the patient call the office tomorrow with an update on her symptoms. Test results are discussed with the patient and her at bedside. I did advise them that this may result in miscarriage but at this time there is nothing we can do to stop it. They voiced understanding and agreement. Return instructions were provided. Discharge Plan Triage Chief Complaint: Vag Bld, Preg ED Provider: Maddie Le Dx/Rx/DC Orders Clinical Impression: Miscarriage, threatened, early Instructions: Miscarriage Threatened Prescriptions: No Action fluticasone propionate [Flonase Allergy Relief] 50 mcg/actuation spray,suspension 2 spray intranasal DAILY Rx Instructions: administer into each nostril sertraline [Zoloft] 50 mg tablet 50 mg PO DAILY Probiotic 10 billion cell capsule 100 mmu cells PO DAILY PNV cmb#95-ferrous fumarate-FA [] 28 mg iron- 800 mcg tablet 1 tab PO DAILY Primary Care Provider: Lindsey Farrell Referrals: Lindsey Farrell DO [Primary Care Provider] - Maddie Medina DO [Med Staff - Active Staff] - As soon as possible Activity Restrictions/Additional Instructions: Please call the OB office tomorrow with an update on your symptoms. Disposition Disposition: Home, Self Care
[2023-08-03 21:34] LABS: hCG Titer Quant., Serum 3643 mIU/mL (1-3)
[2023-08-03] MEDS: Acetaminophen 500 MG Tablet 1000 MG PO (22:27)
[2023-08-03 23:02] VITALS: PULSE 85; RESP 16; O2SAT 94
== END 2023-08-03 23:07 | disposition home or self-care (01) ==
PROVIDERS: Emergency Provider Emergency Medicine; PCP Family Medicine; Visit Provider Emergency Medicine
DX: O20.0 Threatened abortion (principal); Z3A.01 Less than 8 weeks gestation of pregnancy
CPT/HCPCS: 76817; 84702; 99283

== ENCOUNTER 2023-08-05 13:36 | Emergency (ER) | payer BC, SELFPAY ==
[2023-08-05 13:37] VITALS: BP 111/83; PULSE 75; RESP 16; TEMP 36.4; O2SAT 97; BMI 33.3
--- NOTE | 2023-08-05 13:41 | US_ITS ---
STUDY: FIRST TRIMESTER OBSTETRICAL ULTRASOUND REASON FOR EXAM: Female, 32 years old bleeding miscarriage LMP: TECHNIQUE: Transvaginal TECHNICAL QUALITY: Adequate. PRIOR ULTRASOUND: 08/03/2023 FINDINGS: There is no demonstrated intrauterine gestational sac.. The uterus measures 9.2 x 3.8 x 5.5 cm. There is no demonstrated uterine fibroid. The cervix is closed. The right ovary measures 2.6 x 2.5 x 1.8 cm. There is no right ovarian cyst. There is no visualized right adnexal mass or complex lesion. The left ovary measures 2.8 x 2.4 x 1.5 cm. There is no left ovarian cyst. There is no visualized left adnexal mass or complex lesion. There is no fluid in the cul de sac. US/Transvaginal w/Preg US IMPRESSION: Interval with no obvious residual products of conception. Electronically Signed: Artur Reynoso MD at 15:56 EST ,
[2023-08-05 13:56] VITALS: BP 135/77; PULSE 67; RESP 24; O2SAT 99
[2023-08-05 14:04] LABS: Hematocrit 39.6 % (37-47); Hemoglobin 12.4 g/dL (12.0-15.0)
--- NOTE | 2023-08-05 14:09 | EDS_ITS ---
HPI HPI - Female History of Present Illness Chief Complaint: Vag Bld, Preg Informant: patient and spouse/S.O. Narrative Narrative: 32-year-old female presenting to the emergency room out of concerns for miscarriage. Patient states that she is approximately 6 weeks . On Monday afternoon she began to have spotting and by evening was having more bleeding. She was seen in the emergency department where a single live intrauterine was noted however there was bradycardia in the fetus was in the lower uterine segment. It was worrisome for miscarriage. She states that she has continued to bleed. She had a fall and her quantitative hCG from roughly 6221-1365. She continues to have bleeding and pelvic cramping. She discussed with her CORRUGATED SHEET MATERIAL SHEETER who advised her to return to the emergency department. Her CORRUGATED SHEET MATERIAL SHEETER did call us. Patient is A positive blood type. [facility] Medical History Anxiety Anxiety and depression Back pain Blackout Depression Dysmenorrhea Gastric reflux History of IBS Hx pulmonary embolism Infertility Injury of back Wears contact lenses Wears glasses Home Medications fluticasone propionate 50 mcg/actuation nasal spray,suspension (Flonase Allergy Relief) 2 spray intranasal DAILY 03/07/23 [History Last Taken Unknown] sertraline 50 mg tablet (Zoloft) 50 mg PO DAILY 04/05/23 [History Last Taken Unknown] Lactobacillus acidophilus 10 billion cell capsule (Probiotic) 100 mmu cells PO DAILY 05/10/23 [History Last Taken Unknown] vit no.95-ferrous fumarate 28 mg-folic acid 800 mcg tablet () 1 tab PO DAILY 08/03/23 [History Last Taken Unknown] Allergy/AdvReac Type Severity Reaction Status Date / Time hydromorphone [From Dilaudid] Allergy Hives Verified 08/05/23 13:37 Sulfa (Sulfonamide Allergy Diarrhea Verified 08/05/23 13:37 Antibiotics) Family History Father Heart disease Hypertension Surgical History Status post hysteroscopy (~05/23/23) Social History Smoking Status: Never smoker ROS ROS ED Constitutional Constitutional ED: Denies chills, fever(s) or weight loss Eyes Eyes: Denies change in vision or diplopia ENT ENT ED: Denies ear pain, rhinorrhea or sore throat Cardiovascular Cardiovascular: Denies chest pain, orthopnea, palpitations or racing heartbeat Respiratory/Chest Respiratory/Chest: Denies cough, dyspnea or orthopnea Gastrointestinal Gastrointestinal: Reports abdominal pain; Denies diarrhea, nausea or vomiting Genitourinary Genitourinary ED: Reports other Details: Pelvic cramping bleeding ; Denies dysuria, hematuria or urinary frequency Musculoskeletal Musculoskeletal: Denies arthralgias or myalgias Integumentary Denies abscess or rash Neurologic Neurologic: Denies headache(s) or weakness Psychiatric Psychiatric: Denies anxiety, depression, suicidal ideation or suicidal thoughts Endocrine Endocrinology: Denies polydipsia, polyphagia or polyuria Allergic/Immunologic Allergic/Immunologic ED: Denies mouth swelling, tongue swelling or urticaria EXAM Physical Exam Const Vital Signs: 08/05/23 13:37 08/05/23 13:56 Temperature 97.6 F L Temperature Source Temporal Pulse Rate 75 67 Respiratory Rate 16 24 H Blood Pressure 111/83 H 135/77 H Blood Pressure Mean 92 96 Pulse Ox 97 99 Oxygen Delivery Method Room Air Room Air Positive well nourished and well developed General Appearance ED: well developed HEENT Reports normocephalic, head/scalp atraumatic and moist mucous membranes Eyes PERRL and EOMs intact bilaterally Neck no lymphadenopathy, supple and no JVD Resp normal respiratory effort and clear to auscultation bilaterally Cardio regular rate, regular rhythm and no murmurs GI non-distended Auscultation: normoactive bowel sounds Palpation: soft and tender suprapubic; Negative for guarding or rigid Back/Spine no CVA tenderness and normal ROM Extremity normal to inspection General Extremety ED: Negative for edema General Extremity: Negative for edema Neuro oriented x3 and CN's II-XII intact bilaterally Sensorium / Orientation: alert Motor Exam: strength 5/5 throughout Psych mental status grossly normal Mood & Affect: Negative for depressed or tearful Skin no rashes or lesions noted and no wounds MDM MDM MDM Narrative Medical decision making narrative: Hemoglobin is stable. Pelvic ultrasound was obtained. This demonstrates basically an empty uterus. After returning from ultrasound the patient passed tissue that appears to be the remnants of fetus. Patient notes that her pelvic cramping is improved. Case was reviewed with Dr. Dasilva. Patient will follow-up in the office in 2 weeks. She may return to the emergency department if she has concerns or worsening. She may also speak with on-call medical transcriber as needed. Lab Data Labs: Laboratory Results - last 24 hr 08/05/23 13:55 Hgb 12.4 Hct 39.6 Discharge Plan Triage Chief Complaint: Vag Bld, Preg ED Provider: Kendrick Onofre Dx/Rx/DC Orders Clinical Impression: Vaginal bleeding, Complete miscarriage Instructions: ED Miscarriage Spontaneous Prescriptions: No Action fluticasone propionate [Flonase Allergy Relief] 50 mcg/actuation spray,suspension 2 spray intranasal DAILY Rx Instructions: administer into each nostril sertraline [Zoloft] 50 mg tablet 50 mg PO DAILY Probiotic 10 billion cell capsule 100 mmu cells PO DAILY PNV cmb#95-ferrous fumarate-FA [] 28 mg iron- 800 mcg tablet 1 tab PO DAILY Primary Care Provider: Lindsey Farrell Referrals: Lindsey Farrell DO [Primary Care Provider] - Maddie Medina DO [Med Staff - Active Staff] - As soon as possible (Please call to arrange follow-up to be seen in 2 weeks.) Activity Restrictions/Additional Instructions: Please continue to monitor. I would expect your bleeding to improve over the next several days. If you have any concerns or worsening you may return to the emergency department or speak with your medical transcriber. Disposition Disposition: Home, Self Care
== END 2023-08-05 16:10 | disposition home or self-care (01) ==
PROVIDERS: Emergency Provider Emergency Medicine; PCP Family Medicine; Visit Provider Emergency Medicine
DX: O03.9 Complete or unspecified spontaneous abortion without complication (principal)
CPT/HCPCS: 76817; 85014; 85018; 99283; J7030; A4216

== ENCOUNTER → 2023-08-05 | Outpatient (CLI) | payer BC, SELFPAY ==
[2023-08-05 12:54] LABS: hCG Titer Quant., Serum 1614 mIU/mL (1-3)
== END | disposition home or self-care (01) ==
LOC: BFHLAB 11:52 → LAB 11:56
PROVIDERS: Advanced Practice Midwife; PCP Family Medicine; Visit Provider Obstetrics & Gynecology
DX: O20.0 Threatened abortion (principal); Z3A.00 Weeks of gestation of pregnancy not specified
CPT/HCPCS: 36415; 84702

== ENCOUNTER → 2023-08-31 | Outpatient (CLI) | payer BC, SELFPAY ==
--- NOTE | 2023-08-31 09:49 | BI_ITS ---
MAMMOGRAPHY - BILATERAL SCREENING REASON FOR EXAM: Female, 32 years old. Routine annual screening examination. PERTINENT HISTORY: Mother with breast cancer. Aunt with breast cancer. TECHNIQUE: Digital bilateral breast lona (3D mammographic acquisition) in the CC and MLO projections. 2-D mediolateral oblique (MLO) and craniocaudad (CC) views of both breasts were obtained. CAD: Full Field Digital Mammography with Computer Added Detection was performed. COMPARISON: None. Baseline examination. FINDINGS: Breast Composition: The breasts are heterogeneously dense, which may obscure small masses. There are no dominant masses or suspicious calcifications. No other significant abnormalities are identified. BI/SCRN MAMM (CAD)W/LONA BILAT IMPRESSION: Negative screening mammogram. Yearly followup mammogram recommended. (A) ASSESSMENT CATEGORY: BIRADS Category 1: Negative. A letter regarding these results will be sent to the patient by the facility within 30 days. Approximately 10% of breast cancers are not detected by mammography. A normal mammogram should not delay biopsy of a clinically suspicious abnormality. [id number] Electronically Signed: Vernon Quinonez MD at 9:55 EST ,
== END | disposition home or self-care (01) ==
LOC: OPBI 09:49
PROVIDERS: PCP Family Medicine; Referring Provider Obstetrics & Gynecology; Visit Provider Obstetrics & Gynecology
DX: Z12.31 Encounter for screening mammogram for malignant neoplasm of breast (principal)
CPT/HCPCS: 77063; 77067

== ENCOUNTER → 2023-10-14 | Outpatient (CLI) | payer BC, SELFPAY ==
--- OUTSIDE RECORDS SUMMARY | 2023-10-14 07:19 | XMS RPT_ITS | CCD ---
Author Name Unknown Address [address] [place] [address] Organization [facility] Care Team Providers Care Mechanical Repair Worker Name Role Phone Yassine, Joyce Unavailable Fabiola Gilbert N. Unavailable Unavailable Vladimir Fabiola N. Unavailable [phone] Unavailable Unavailable Unavailable PRYKHODKO, SONAM OLEKSEYOVICH Unavailable U navailable VLADIMIR FABIOLA N. Unavailable Unavailable VLADIMIR FABIOLA N. Unavailable Unavailable CULLEN BUTLER Unavailable Unavailable VLADIMIR, FABIOLA N. Unavailable Unavailable MAGAT, LAKAN K Unavailable Unavailable CULLEN BUTLER BETI Unavailable Unavailable VLADIMIR, FABIOLA N. Unavailable Unavailable PRYKHODKO, SONAM OLEKSEYOVICH Unavailable U navailable YASSINE, JOYCE Unavailable Unavailable YASSINE, JOYCE Unavailable Unavailable YASSINE, JOYCE Unavailable Unavailable YASSINE, JOYCE Unavailable Unavailable Yassine, Joyce Unavailable Unavailable Yassine, Joyce Unavailable Unavailable Prykhodko, Sonam O Unavailable Unavailable Prykhodko, Sonam O Unavailable Unavailable Yassine, Joyce Unavailable Unavailable Yassine, Joyce Unavailable Unavailable DARLEEN BARBOSA Unavailable Unavai lable FABIOLA GILBERT N. Unavailable Unavailable PATTI SOLORZANO (FEL) Unavailable Unavailable WALT NULL Unavailable Unavailable Lindsey Ty DO Primary Care Provider MARCUS MALDONADO Referring Unavailable LINDSEY TY Primary Care Unavailable LINDSEY TY Attending Unavailable LINDSEY TY Primary Care Unavailable LINDSEY TY Primary Care Unavailable ESA ZAMORA Attending Unavailable Lindsey Ty DO Primary Care Provider Allergies Allergy Classification Reported Allergen(s) Allergy Type Date of Onset Reaction(s) Facility (10 sources) HYDROmorphone; Translations: [HYDROMORPHONE] Propensity to adverse reactions to drug 7 Hives [facility] Work Phone: (8 sources) Sulfonamides (Antibiotic); Translations: [SULFA (SULFONAMIDE ANTIBIOTICS)] Propensity to adverse reactions to drug 7 Diarrhea [facility] Work Phone: (2 sources) Sulfonamides (Antibiotic) Drug Intolerance 3 [facility] Medications Current Medications Medication Drug Class(es) Dates Sig (Normalized) Sig (Original) amitriptyline hydrochloride 75 mg oral tablet (4 sources) Tricyclic Antidepressant Start: 09-04-2017 End: 09-04-2018 take 1 tablet by mouth once, then take 0.5 tablet by mouth once amitriptyline (ELAVIL) 75 MG tablet Indications: Anesthesia of skin , Paresthesia of skin Take 1 (one) tablet (75 mg total) by mouth nightly 1/2 tab nightly for first week only. 30 tablet 2 09/04/2017 09/04/2018 Active azelastine hydrochloride 0.137 mg/actuat / fluticasone propionate 0.05 mg/actuat metered dose nasal spray (6 sources) Corticosteroid, Histamine-1 Receptor Antagonist Start: 07-25-2017 take 1 spray(s) nasal route twice daily azelastine-flutica sone 137-50 mcg/spray Daphne Indications: Chronic seasonal allergic rhinitis, unspecified trigger Instill 1 (one) spray into each nostril 2 (two) times a day. 1 Bottle 3 07/25/2017 Active multivitamin (multivitamin) per tablet (5 sources) multivitamin (multivitamin) per tablet Take by mouth daily. Active sertraline 100 mg oral tablet (6 sources) Serotonin Reuptake Inhibitor Start: 07-17-2017 sertraline (ZOLOFT) 100 MG tablet Completed/Discontinued Medications Medication Drug Class(es) Dates Sig (Normalized) Sig (Original) iopamidol (Isovue-370) 76 % injection 75 mL (1 source) Start: 01-24-2023 End: 01-24-2023 iopamidol (Isovue-370) 76 % injection 75 mL 50 ml sodium chloride 9 mg/ml injection (1 source) Start: 01-24-2023 End: 01-24-2023 sodium chloride 0.9 % bolus 1,000 mL Problems Active Problems Problem Classification Problem Date Documented Da te Episodic/Chronic Abdominal pain (4 sources) Right lower quadrant pain; Translations: [Right lower quadrant pain] Onset: 01-24-2023 01-24-2023 Episodic Menstrual disorders (5 sources) Excessive and frequent menstruation; Translations: [Dysmenorrhea, unspecified] Onset: 08-22-2017 09-25-2017 Chronic Other upper respiratory disease (2 sources) Seasonal allergic rhinitis; Translations: [Vasomotor rhinitis] Chronic Other upper respiratory infections (2 sources) Chronic sinusitis, unspecified; Translations: [Chronic sinusitis, unspecified] Onset: 07-25-2017 Chronic Unclassified (2 sources) Unknown / UNK(Unknown) Onset: 02-20-2017 Past or Other Problems Problem Classification Problem Date Documented Da te Episodic/Chronic Other circulatory disease (4 sources) H/O: pulmonary embolus; Translations: [History of pulmonary embolism] Onset: 09-04-2017 09-04-2017 Episodic Other nervous system disorders (12 sources) Anesthesia of skin; Translations: [Paresthesia] Onset: 02-20-2017 09-04-2017 Episodic Other upper respiratory infections (1 source) Sinusitis Episodic Pulmonary heart disease (2 sources) Personal history of pulmonary embolism; Translations: [Personal history of pulmonary embolism] Onset: 10-06-2017 Episodic Unclassified (1 source) Follow-up Onset: 08-28-2017 Results Test Name Value Interpretation Reference Range Facil ity Vital Signs Date Time Vital Sign Value Performing Clinician Zahida keen 09-27-2017 15:35-0500 BMI (Body Mass Index) 25.42 kg/m2 Sonam Connelly [facility] Work Phone: 09-27-2017 15:35-0500 BP Diastolic 72 mm[Hg] Sonam Connelly [facility] Work Phone: 09-27-2017 15:35-0500 BP Systolic 116 mm[Hg] Sonam Connelly [facility] Work Phone: 09-27-2017 15:35-0500 Pulse (Heart Rate) 52 /min Sonam Connelly [facility] Work Phone: 09-27-2017 15:35-0500 Pulse Oximetry 98 % Sonam Connelly [facility] Work Phone: 09-27-2017 15:35-0500 Weight 67.18 kg Sonam Connelly [facility] Work Phone: 08-28-2017 14:13-0500 BMI (Body Mass Index) 25.47 kg/m2 Cullen Butler [facility] Work Phone: 08-28-2017 14:13-0500 BP Diastolic 66 mm[Hg] Cullen Butler [facility] Work Phone: 08-28-2017 14:13-0500 BP Systolic 97 mm[Hg] Cullen Butler [facility] Work Phone: 08-28-2017 14:13-0500 Pulse (Heart Rate) 60 /min Cullen Butler [facility] Work Phone: 08-28-2017 14:13-0500 Pulse Oximetry 98 % Cullen Butler [facility] Work Phone: 08-28-2017 14:13-0500 Weight 67.31 kg Cullen Butler [facility] Work Phone: 07-25-2017 10:23-0500 BMI (Body Mass Index) 26.19 kg/m2 Cullen Butler [facility] Work Phone: 07-25-2017 10:23-0500 BP Diastolic 66 mm[Hg] Cullen Carrie [facility] Work Phone: 07-25-2017 10:23-0500 BP Systolic 99 mm[Hg] Cullen Butler [facility] Work Phone: 07-25-2017 10:23-0500 Height 162.6 cm Cullen Butler [facility] Work Phone: 07-25-2017 10:23-0500 Pulse (Heart Rate) 61 /min Cullen Butler [facility] Work Phone: 07-25-2017 10:23-0500 Pulse Oximetry 98 % Cullen Butler [facility] Work Phone: 07-25-2017 10:23-0500 Weight 69.22 kg Cullen Butler [facility] Work Phone: Encounters Encounter Date Encounter Type Care Provider Facility Start: 01-25-2023 End: 01-25-2023 [facility] Start: 01-24-2023 End: 01-24-2023 Emergency department patient visit LINDSEY TY [facility] Start: 01-24-2023 End: 01-24-2023 Emergency department patient visit Esa Zamora MD Work Phone: [facility] ED Procedures Date Procedure Procedure Detail Performing Clinician Start: 01-24-2023 Ecg routine ecg w/le ast 12 lds trcg only w/o i&r Marcus Maldonado MD Work Phone: Start: 01-24-2023 Ct abdomen & pelvis w/contrast material Esa Zamora MD Work Phone: Start: 01-24-2023 Comprehensive metabo lic panel Esa Zamora MD Work Phone: Start: 01-24-2023 Urinalysis complete panel - Urine Esa Zamora MD Work Phone: Start: 01-24-2023 Urine test visual color cmprsn meths Esa Zamora MD Work Phone: Start: 01-24-2023 Urnls dip stick/tabl et reagent auto microscopy Esa Zamora MD Work Phone: Start: 01-24-2023 Comprehensive metabo lic panel Lindsey Ty DO Work Phone: Plan of Treatment Date Care Activity Detail Author Start: 2038 Zoster Vaccines (1 of 2) Zoster Vaccines (1 of 2) [facility] Start: 04-14-2023 Influenza vaccination [facility] Start: 02-14-2021 COVID-19 Vaccine (3 - Booster for Pfizer series) COVID-19 Vaccine (3 - Booster for Pfizer series) [facility] Start: 08-22-2020 Screening for malignant neoplasm of cervix PAP SMEAR [facility] Work Phone: Start: 2018 Screening for malignant neoplasm of cervix [facility] Start: 01-29-2018 Ambulatory 01/29/2018 Office Visit Dentistry [facility] Start: 01-21-2018 DTaP/Tdap/Td Vaccines (2 - Td or Tdap) DTaP/Tdap/Td Vaccines (2 - Td or Tdap) [facility] Start: 10-10-2017 Ambulatory 10/10/2017 Clinical Support Otolaryngology Cullen Butler, AQUARIST [address] [facility] [address] [place] [address] [phone] [facility] Start: 10-06-2017 Ambulatory 10/06/2017 Procedure visit Neurology Darin Ding MD [address] [place] [address] [phone] [facility] Neurological [facility] Start: 10-05-2017 Ambulatory 10/05/2017 Appointment Cardiology Joyce Arita MD [address] [place] [phone] [facility] Start: 09-28-2017 Ambulatory 09/28/2017 Clinical Support Otolaryngology Cullen Butler CNP [address] [facility] [address] [place] [address] [phone] [facility] Start: 09-20-2017 Ambulatory 09/20/2017 Office Visit Dentistry [facility] Start: 09-04-2017 Ambulatory 09/04/2017 Clinical Support Obstetrics and Gynecology Darleen Barobsa CNP [address] [place] [phone] Laquita Vaca, TECHNOLOGIST [facility] SWITCHING OPERATOR Start: 08-29-2017 Ambulatory 08/29/2017 Office Visit Dentistry [facility] Start: 08-28-2017 Ambulatory 08/28/2017 Office Visit Otolaryngology Cullen Butler, AQUARIST [address] [facility] [address] [place] [address] [phone] [facility] Start: 04-14-2017 Influenza vaccination SEQUENTIAL INFLUENZA VACCINE (#1) [facility] Work Phone: Start: 2009 Screening for malignant neoplasm of cervix Pap Smear [facility] Start: 07-28-2009 Varicella vaccination Varicella Vaccines (1 of 2 - 2-dose childhood series) [facility] Start: 12-11-2008 HPV Vaccines (3 - 3-dose series) HPV Vaccines (3 - 3-dose series) [facility] Start: 2006 Diabetes mellitus screening Diabetes Screening [facility] Start: 2006 Hepatitis C screening Hepatitis C Screening [facility] Start: 2000 Depression Screening Depression Screening [facility] Start: 1988 Hepatitis B Vaccines (1 of 3 - 3-dose series) Hepatitis B Vaccines (1 of 3 - 3-dose series) [facility] Start: 1988 HIV screening HIV Screening [facility] Start: 1988 Screening for malignant neoplasm of cervix PAP SMEAR [facility] Work Phone: Start: 1988 Tetanus vaccination TETANUS EVERY 10 YR [facility] Work Phone: End: 08-29-[address] Sinus Routine Chronic sinusitis, unspecified location 1 Occurrences starting 08/29/2017 until 08/29/2018 [facility] Work Phone: ECG 12 lead ECG 12 lead CV E CG STAT 01/24/2023 10:24 PM EDT [facility] Work Phone: OUTSIDE PROCEDURE SCAN OUTSIDE P ROCEDURE SCAN Procedures Ordered: 01/24/2023 [facility] Immunizations Immunization Date Immunization Notes Care Provider Fa cility 06-30-2009 influenza virus vacc ine, unspecified formulation Esa Zamora MD Work Phone: [facility] PBC Lasers 08-12-2008 HPV, unspecified formulation Esa Zamora MD Work Phone: [facility] Payers Date Payer Category Payer Unknown [employer] Brittany INFANTE [id number] 2022-Present [address] [place] [address] Commercial [id number] 2022 Unknown [id number] 2017 Medicaid [id number] 2017 Medicaid [id number] Medicaid xxxxxxxxxxxx [id number] Unknown xxxxxxxxxxx [id number] Social History Date Type Detail Facility Start: 09-27-2017 End: 01-24-2023 Tobacco smoking status NEIS Never smoker [place] Phone: Start: 1988 Sex Assigned At Not on file [facility] Work Phone: Start: 07-05-2017 Tobacco smoking status NEIS Unknown if ever smoked [facility] Work Phone: Start: 01-24-2023 Tobacco use and exposure Smokeless tobacco non-user [facility] Start: 01-24-2023 Alcohol intake Ex-drinker (finding) [facility] Start: 01-24-2023 History of Social function [facility] Start: 01-24-2023 Alcohol Use Disorder Identification Test - Consumption [AUDIT-C] [facility] How often to you hav e a drink containing alcohol? Never [facility] How many standard dr inks containing alcohol do you have on a typical day? Patient does not drink [facility] Start: 01-14-2023 End: 01-24-2023 Exposure to SARS-CoV-2 (event) Not sure [facility] Hospital Discharge instructions 06-13-2023 Discharge Instructions Note Date & Type Note Facility 01-24-2023 Hospital Discharg e instructions Esa Zamora MD - 01/24/2023 8:43 PM EDT You were seen at the [facility] emergency department for abdominal pain that radiates around your side. Your labs and CT were normal. Your urine had some trace signs of infection but mostly was concerning for blood which is expected on your menstrual cycle. Please take the antibiotics your doctor prescribed you this morning and follow-up with them. documented in this encounter [facility] Emergency department Note 01-24-2023 Raven Park RN - 01/24/2023 4:31 PM EDT Note Date & Type Note Facility 01-24-2023 Emergency department Note For matting of this note might be different from the original. EKG called. Raven Park RN 01/24/23 1632 [facility] Emergency department Note 01-24-2023 Raven Park RN - 01/24/2023 4:31 PM EDTHeruba Park RN - 01/24/2023 4:30 PM EDT Note Date & Type Note Facility 01-24-2023 Emergency department Note For matting of this note might be different from the original. EKG called. Raven Park RN 01/24/23 1632 Patient presents with RLQ abdominal pain, N/V that started several days ago. PCP wanted CT scan, to which insurance declined. Patient advised to come in for concern for appendicitis. Raven Park RN 01/24/23 1631 documented in this encounter [facility] Emergency department Note 01-24-2023 Raven Park RN - 01/24/2023 4:30 PM EDT Note Date & Type Note Facility 01-24-2023 Emergency department Note For matting of this note might be different from the original. Patient presents with RLQ abdominal pain, N/V that started several days ago. PCP wanted CT scan, to which insurance declined. Patient advised to come in for concern for appendicitis. 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, face, and jaw Chronic vasomotor rhinitis Diagnosis Chronic sinusitis, unspecifi ed location - Primary Chronic allergic rhinitis, u nspecified seasonality, unspecified trigger PND (post-nasal drip) Postnasal drip Diagnosis Chronic seasonal allergic rh initis, unspecified trigger - Primary Sinusitis, unspecified chron icity, unspecified location Chronic vasomotor rhinitis Summary Purpose Family History No Family History Records FoundNo Family History Records FoundNo Family History Records FoundNo Family History Records FoundNo Family History Records FoundNo Family History Records Found Advance Directives No Advanced Directives Records FoundNo Advanced Directives Records FoundNo Advanced Directives Records FoundNo Advanced Directives Records FoundNo Advanced Directives Records FoundNo Advanced Directives Records Found Additional Source Comments INFORMATION SOURCE (unrecogn ized section and content) DATE CREATED AUTHOR AUTHOR'S ORGANIZ ATION 02/02/2018 [facility] DATE CREATED AUTHOR AUTHOR'S ORGANIZ ATION 02/06/2018 [facility] DATE CREATED AUTHOR AUTHOR'S ORGANIZ ATION 02/07/2018 [facility] DATE CREATED AUTHOR AUTHOR'S ORGANIZ ATION 03/19/2022 [facility] DATE CREATED AUTHOR AUTHOR'S ORGANIZ ATION 01/28/2023 [facility] Reason for Visit (unrecogniz ed section and content) Scheduled Active and Recently Administ ered Medications (unrecognized section and content) PRN Medication Order 01/22/2023 01/23/2023 01/24/2023 iopamidol (Isovue-370) 76 % injection 75 mL (COMPLETED) 75 mL, IntraVENous, IMG once PRN, contrast, Starting on Mon01/24/23 at 1955, For 1 dose 1954 (Given - Provid er: Talia Perales) Care Teams (unrecognized sec tion and content) Mechanical Repair Worker Relationship Specialty Start Date End Date Bud Lindsey, [address] [place] [address] PCP - General 03/15/22 FOR RECORDS PERTAINING TO PATIENTS WHO ARE OR HAVE BEEN ENROLLED IN A CHEMICAL DEPENDENCY/SUBSTANCEABUSE PROGRAM, SOME INFORMATION MAY BE OMITTED. This clinical summary was aggregated from multiple sources. Caution should be exercised in using it in the provision of clinical care. This summary normalizes information from multiple sources, and as a consequence, information in this document may materially change the coding, format and clinical context of patient data. In addition, data may be omitted in some cases. CLINICAL DECISIONS SHOULD BE BASED ON THE PRIMARY CLINICAL RECORDS. [employer] provides no warranty or guarantee of the accuracy or completeness of information in this document.
[2023-10-14 08:35] LABS: hCG Titer Quant., Serum 63 mIU/mL (1-3)
== END | disposition home or self-care (01) ==
LOC: LAB 07:16
PROVIDERS: PCP Family Medicine; Referring Provider Obstetrics & Gynecology; Visit Provider Obstetrics & Gynecology
DX: N91.2 Amenorrhea, unspecified (principal)
CPT/HCPCS: 36415; 84702

== ENCOUNTER → 2023-10-16 | Outpatient (CLI) | payer BC, SELFPAY ==
--- OUTSIDE RECORDS SUMMARY | 2023-10-16 07:21 | XMS RPT_ITS | CCD ---
Author Name Unknown Address [id number] [place] [address] Organization [facility] Care Team Providers Care Sales Performance Analyst Name Role Phone Yassine, Joyce Unavailable Fabiola Gilbert N. Unavailable Unavailable Vladimir Fabiola N. Unavailable Unavailable Unavailable Unavailable PRYKHODKO, SONAM OLEKSEYOVICH Unavailable U navailable VLADIMIR FABIOLA N. Unavailable Unavailable VLADIMIR FABIOLA N. Unavailable Unavailable CULLEN BUTLER Unavailable Unavailable VLADIMIR, FABIOLA N. Unavailable Unavailable MAGAT, LAKAN K Unavailable Unavailable CULLEN BUTLER BETI Unavailable Unavailable VLADIMIR, FABIOLA N. Unavailable Unavailable PRYKHODKO, SONAM OLEKSEYOVICH Unavailable U navailable YASSINE, JOYCE Unavailable Unavailable YSASINE, JOYCE Unavailable Unavailable YASSINE, JOYCE Unavailable Unavailable [...] to adverse reactions to drug 7 Hives [facility] Work Phone: (8 sources) Sulfonamides (Antibiotic); Translations: [SULFA (SULFONAMIDE ANTIBIOTICS)] Propensity to adverse reactions to drug 7 Diarrhea [facility] Work Phone: (2 sources) Sulfonamides (Antibiotic) Drug Intolerance 3 [facility] Medications Current Medications Medication Drug Class(es) Dates [...] route twice daily azelastine-flutica sone 137-50 mcg/spray [place] Indications: Chronic seasonal allergic rhinitis, unspecified trigger [...] (Body Mass Index) 25.42 kg/m2 Sonam Connelly [facility] Work Phone: 09-27-2017 15:35-0500 BP Diastolic 72 mm[Hg] Sonam Connelly [facility] Work Phone: 09-27-2017 15:35-0500 BP Systolic 116 mm[Hg] Sonam Connelly [facility] Work Phone: 09-27-2017 15:35-0500 Pulse (Heart Rate) 52 /min Sonam Connelly [facility] Work Phone: 09-27-2017 15:35-0500 Pulse Oximetry 98 % Sonam Connelly [facility] Work Phone: 09-27-2017 15:35-0500 Weight 67.18 kg Sonam Connelly [facility] Work Phone: 08-28-2017 14:13-0500 BMI (Body Mass Index) 25.47 kg/m2 Cullen Butler [facility] Work Phone: 08-28-2017 14:13-0500 BP Diastolic 66 mm[Hg] Cullen Butler [facility] Work Phone: 08-28-2017 14:13-0500 BP Systolic 97 mm[Hg] Cullen Butler [facility] Work Phone: 08-28-2017 14:13-0500 Pulse (Heart Rate) 60 /min Cullen Butler [facility] Work Phone: 08-28-2017 14:13-0500 Pulse Oximetry 98 % Cullen Butler [facility] Work Phone: 08-28-2017 14:13-0500 Weight 67.31 kg Cullen Butler [facility] Work Phone: 07-25-2017 10:23-0500 BMI (Body Mass Index) 26.19 kg/m2 Cullen Butler [facility] Work Phone: 07-25-2017 10:23-0500 BP Diastolic 66 mm[Hg] Cullen Carrie [facility] Work Phone: 07-25-2017 10:23-0500 BP Systolic 99 mm[Hg] Cullen Butler [facility] Work Phone: 07-25-2017 10:23-0500 Height 162.6 cm Cullen Butler [facility] Work Phone: 07-25-2017 10:23-0500 Pulse (Heart Rate) 61 /min Cullen Butler [facility] Work Phone: 07-25-2017 10:23-0500 Pulse Oximetry 98 % Cullen Butler [facility] Work Phone: 07-25-2017 10:23-0500 Weight 69.22 kg Cullen Butler [facility] Work Phone: Encounters Encounter Date Encounter Type Care Provider Facility Start: 01-25-2023 End: 01-25-[address] [facility] Start: 01-24-2023 End: 01-24-2023 Emergency department patient visit LINDSEY TY [facility] Start: 01-24-2023 End: 01-24-2023 Emergency department patient visit Esa Zamora MD Work Phone: [facility] ED Procedures Date Procedure Procedure Detail Performing [...] of 2) Zoster Vaccines (1 of 2) [facility] Start: 04-14-2023 Influenza vaccination [facility] Start: 02-14-2021 COVID-19 Vaccine (3 - Booster for Pfizer series) COVID-19 Vaccine (3 - Booster for Pfizer series) [facility] Start: 08-22-2020 Screening for malignant neoplasm of cervix PAP SMEAR [facility] Work Phone: Start: 2018 Screening for malignant neoplasm of cervix [facility] Start: 01-29-2018 Ambulatory 01/29/2018 Office Visit Dentistry [facility] Start: 01-21-2018 DTaP/Tdap/Td Vaccines (2 - Td or Tdap) DTaP/Tdap/Td Vaccines (2 - Td or Tdap) [facility] Start: 10-10-2017 Ambulatory 10/10/2017 Clinical Support Otolaryngology Cullen Butler, TRUST OFFICER [address] [facility] [address] [place] [address] [phone] [facility] Start: 10-06-2017 Ambulatory 10/06/2017 Procedure visit Neurology Darin Ding MD [address] [place] [address] [phone] [facility] Start: 10-05-2017 Ambulatory 10/05/2017 Appointment Cardiology Joyce Arita MD [address] [place] [id number] [facility] Start: 09-28-2017 Ambulatory 09/28/2017 Clinical Support Otolaryngology Cullen Butler CNP [address] [facility] [address] [place] [address] [phone] [facility] Start: 09-20-2017 Ambulatory 09/20/2017 Office Visit Dentistry [facility] Start: 09-04-2017 Ambulatory 09/04/2017 Clinical Support Obstetrics and Gynecology Darleen Barbosa CNP [address] [place] [id number] Laquita Vaca, TECHNOLOGIST [facility] JUDGE Start: 08-29-2017 Ambulatory 08/29/2017 Office Visit Dentistry [facility] Start: 08-28-2017 Ambulatory 08/28/2017 Office Visit Otolaryngology Cullen Butler, TRUST OFFICER [address] [facility] [address] [place] [address] [phone] [facility] Start: 04-14-2017 Influenza vaccination SEQUENTIAL INFLUENZA VACCINE (#1) [facility] Work Phone: Start: 2009 Screening for malignant neoplasm of cervix Pap Smear [facility] Start: 07-28-2009 Varicella vaccination Varicella Vaccines (1 of 2 - 2-dose childhood series) [facility] Start: 12-11-2008 HPV Vaccines (3 - 3-dose series) HPV Vaccines (3 - 3-dose series) [facility] Start: 2006 Diabetes mellitus screening Diabetes Screening [facility] Start: 2006 Hepatitis C screening Hepatitis C Screening [facility] Start: 2000 Depression Screening Depression Screening [facility] Start: 1988 Hepatitis B Vaccines (1 of 3 - 3-dose series) Hepatitis B Vaccines (1 of 3 - 3-dose series) [facility] Start: 1988 HIV screening HIV Screening [facility] Start: 1988 Screening for malignant neoplasm of cervix PAP SMEAR [facility] Work Phone: Start: 1988 Tetanus vaccination TETANUS EVERY 10 YR [facility] Work Phone: End: 08-29-[address] Sinus Routine Chronic sinusitis, unspecified location 1 Occurrences starting 08/29/2017 until 08/29/2018 [facility] Work Phone: ECG 12 lead ECG 12 lead CV E CG STAT 01/24/2023 10:24 PM EDT [facility] Work Phone: OUTSIDE PROCEDURE SCAN OUTSIDE P ROCEDURE SCAN Procedures Ordered: 01/24/2023 [facility] Immunizations Immunization Date Immunization Notes Care Provider Fa cility 06-30-2009 influenza virus vacc ine, unspecified formulation Esa Zamora MD Work Phone: [facility] [place] 08-12-2008 HPV, unspecified formulation Esa Zamora MD Work Phone: [facility] Payers Date Payer Category Payer Unknown [employer] INFANTE [id number] 2022-Present [address] [place] [address] Commercial [id number] 2022 Unknown [id number] 2017 Medicaid [id number] 2017 Medicaid [id number] Medicaid [id number] Unknown xxxxxxxxxxx [id number] Social History Date Type Detail Facility Start: 09-27-2017 End: 01-24-2023 Tobacco smoking status MTIS Never smoker [facility] Phone: Start: 1988 Sex Assigned At Not on file [facility] Work Phone: Start: 07-05-2017 Tobacco smoking status MTIS Unknown if ever smoked [facility] Work Phone: Start: 01-24-2023 Tobacco use and exposure Smokeless tobacco non-user [facility] Start: 01-24-2023 Alcohol intake Ex-drinker (finding) [facility] Start: 01-24-2023 History of Social function [facility] Start: 01-24-2023 Alcohol Use Disorder Identification Test - Consumption [AUDIT-C] [facility] How often to you hav e a drink containing alcohol? Never [facility] How many standard dr inks containing alcohol do you have on a typical day? Patient does not drink [facility] Start: 01-14-2023 End: 01-24-2023 Exposure to SARS-CoV-2 (event) Not sure [facility] Hospital Discharge instructions 06-13-2023 Discharge Instructions Note Date & Type Note Facility 01-24-2023 Hospital Discharg e instructions Esa Zamora MD - 01/24/2023 8:43 PM EDT You were seen at the [facility] emergency department for abdominal pain that radiates around your side. Your labs and CT were normal. Your urine had some trace signs of infection but mostly was concerning for blood which is expected on your menstrual cycle. Please take the antibiotics your doctor prescribed you this morning and follow-up with them. documented in this encounter [facility] Emergency department Note 01-24-2023 Raven Park RN - 01/24/2023 4:31 PM EDT Note Date & Type Note Facility 01-24-2023 Emergency department Note For matting of this note might be different from the original. EKG called. Raven Park RN 01/24/23 1632 [facility] Emergency department Note 01-24-2023 Raven Park RN [...] RN 01/24/23 1631 documented in this encounter [facility] Emergency department Note 01-24-2023 Raven Park RN [...] for appendicitis. Raven Park RN 01/24/23 1631 [facility] note Note Date & Type [...] DATE CREATED AUTHOR AUTHOR'S ORGANIZ ATION 02/02/2018 [facility] DATE CREATED AUTHOR AUTHOR'S ORGANIZ ATION 02/06/2018 [facility] DATE CREATED AUTHOR AUTHOR'S ORGANIZ ATION 02/07/2018 [facility] DATE CREATED AUTHOR AUTHOR'S ORGANIZ ATION 03/19/2022 [facility] DATE CREATED AUTHOR AUTHOR'S ORGANIZ ATION 01/28/[address] [facility] Reason for Visit (unrecogniz ed section and content) Scheduled Active and Recently Administ ered Medications (unrecognized section and content) PRN Medication Order 01/22/2023 01/23/2023 01/24/2023 iopamidol (Isovue-370) 76 % injection 75 mL (COMPLETED) 75 mL, IntraVENous, IMG once PRN, contrast, Starting on Mon01/24/23 at 1955, For 1 dose 1954 (Given - Provid er: Talia Perales) Care Teams (unrecognized sec tion and content) Sales Performance Analyst Relationship Specialty Start Date End Date Bud Lindsey, [address] [place] [address] PCP - General 03/15/22 FOR RECORDS PERTAINING [...] BE BASED ON THE PRIMARY CLINICAL RECORDS. [employer] provides no warranty or guarantee of the accuracy or completeness of information in this document.
[2023-10-16 08:37] LABS: hCG Titer Quant., Serum 176 mIU/mL (1-3)
== END | disposition home or self-care (01) ==
LOC: LAB 07:14
PROVIDERS: PCP Family Medicine; Visit Provider Obstetrics & Gynecology
DX: N91.2 Amenorrhea, unspecified (principal)
CPT/HCPCS: 36415; 84702

== ENCOUNTER 2023-10-28 20:21 | Emergency (ER) | payer BC, SELFPAY ==
[2023-10-28 20:22] VITALS: BP 112/76; PULSE 81; RESP 18; TEMP 36.8; O2SAT 100; BMI 33.2
--- NOTE | 2023-10-28 20:43 | EDS_ITS ---
HPI <DANIEL Gonzalez - Last Filed: 10/28/23 22:02> HPI - Female History of Present Illness Chief Complaint: Vag Bld, Preg Narrative Narrative: 32-year-old female A1 states she is approximately 7 weeks by dates. Since the started she has had light daily spotting. She had hCG levels done by [facility] which looked normal. She has had occasional sharp twinges of pain in her lower abdomen but the twinges of pain and soreness have increased in frequency and severity over the last 2 days. No increase in bleeding. No urinary symptoms. She also has a history of ex lap and cervical cyst biopsy and was told she had mild endometriosis. PFSH <DANIEL Gonzalez - Last Filed: 10/28/23 22:02> PFS Medical History Anxiety Anxiety and depression Back pain Blackout Depression Dysmenorrhea Gastric reflux History of IBS Hx pulmonary embolism Infertility Injury of back Wears contact lenses Wears glasses Home Medications sertraline 50 mg tablet (Zoloft) 50 mg PO DAILY 04/05/23 [History Last Taken Un known] Lactobacillus acidophilus 10 billion cell capsule (Probiotic) 100 mmu cells PO DAILY 05/10/23 [History Last Taken Unknown] vit no.95-ferrous fumarate 28 mg-folic acid 800 mcg tablet () 1 tab PO DAILY 08/03/23 [History Last Taken Unknown] Allergy/AdvReac Type Severity Reaction Status Date / Time hydromorphone [From Dilaudid] Allergy Hives Verified 10/28/23 20:25 Sulfa (Sulfonamide Allergy Diarrhea Verified 10/28/23 20:25 Antibiotics) Family History Father Heart disease Hypertension Surgical History Status post hysteroscopy (~05/23/23) Social History Smoking Status: Never smoker ROS <DANIEL Gonzalez - Last Filed: 10/28/23 22:02> ROS ED ROS Narrative Constitutional: Negative for fever, chills, malaise. GI: Negative for abdominal pain. Negative for nausea, vomiting, diarrhea, constipation, melena, hematochezia. : Negative for dysuria, hematuria or frequency. EXAM <DANIEL Gonzalez - Last Filed: 10/28/23 22:02> Physical Exam Narrative Exam Narrative: CONST: Patient sitting in no acute distress. EYES: Normal inspection. NECK: Normal inspection. RESP: No respiratory distress, CTAB. CVS: Regular rate and rhythm, no murmur, no gallop. ABD: Soft with mild bilateral lower quadrant tenderness, no guarding or rebound, nondistended. SKIN: Color normal, no rash, warm, dry, intact. EXTREMITIES: Normal appearance, no pedal edema. NEURO: Oriented x4. PSYCH: Normal affect. Const Vital Signs: 10/28/23 20:22 Temperature 98.3 F Temperature Source Temporal Pulse Rate 81 Respiratory Rate 18 Blood Pressure 112/76 Blood Pressure Mean 88 Pulse Ox 100 Oxygen Delivery Method Room Air <Dr. Joey Gupta MD - Last Filed: 10/28/23 22:37> Physical Exam Const Vital Signs: 10/28/23 20:22 Temperature 98.3 F Temperature Source Temporal Pulse Rate 81 Respiratory Rate 18 Blood Pressure 112/76 Blood Pressure Mean 88 Pulse Ox 100 Oxygen Delivery Method Room Air MDM <DANIEL Gonzalez - Last Filed: 10/28/23 22:02> [facility] Narrative Medical decision making narrative: Patient is approximately 7 weeks by dates. Throughout the she has had daily light spotting and twinges of lower abdominal pain. She has increased abdominal pain over the last few days prompting her to come in. No increase in bleeding. She appears well and nontoxic. Stable vital signs. Benign abdominal exam. Pelvic exam shows closed os with very small amount of blood in the vaginal vault. HCG on 10/14/23 was 63, 10/16/23 was 176, and today is 17,918. Blood type is A+ so she does not need RhoGAM. Urinalysis is negative. An magnetic testing technician is not available for formal transvaginal ultrasound at this time. I used a bedside ultrasound for transabdominal but was unable to visualize the uterus as this is very early still low in the pelvis. Her METAL DOOR ASSEMBLER has been paged. Lab Data Attestation: I reviewed the patient's lab results. Labs: Laboratory Results - last 24 hr 10/28/23 10/28/23 20:45 20:55 HCG, Quant [id number] H Urine Color Yellow Urine Clarity Clear Urine pH 7.0 Ur Specific [employer] 1.020 Urine Protein 15 H Urine Glucose (UA) Normal Urine Ketones 5 H Urine Occult Blood 150 H Urine Nitrite Negative Urine Bilirubin Negative Urine Urobilinogen Normal Ur Leukocyte Esterase 25 H Urine RBC 0-5 SEEN Urine WBC 0-5 SEEN Ur Squamous Epith Cells 0-5 SEEN Amorphous Sediment 1+ Urine Bacteria 0 SEEN Urine Mucus 0 SEEN Blood Type A POSITIVE <Dr. Joey Gupta MD - Last Filed: 10/28/23 22:37> MDM MDM Narrative Medical decision making narrative: Patient is approximately 7 weeks by dates. Throughout the she has had daily light spotting and twinges of lower abdominal pain. She has increased abdominal pain over the last few days prompting her to come in. No increase in bleeding. She appears well and nontoxic. Stable vital signs. Benign abdominal exam. Pelvic exam shows closed os with very small amount of blood in the vaginal vault. HCG on 10/14/23 was 63, 10/16/23 was 176, and today is 17,918. Blood type is A+ so she does not need RhoGAM. Urinalysis is negative. An magnetic testing technician is not available for formal transvaginal ultrasound at this time. I used a bedside ultrasound for transabdominal but was unable to visualize the uterus as this is very early still low in the pelvis. Her METAL DOOR ASSEMBLER has been paged. I have personally performed a face to face assessment of the patient and have reviewed the PAULA Note. I performed a substantive portion of the visit including all aspects of the following. My fuller findings include: History is remarkable for vaginal bleeding since beginning of . Patient has Rh+ blood. She believes she is O+. Patient does complain of frequency without dysuria or hematuria. She presently has no vaginal or pelvic pain. There is no history of ectopic. There is no history of endometriosis or STI. She has had threatened miscarriage in the past. She is seen by Dr. Dasilva. She denies pain referred to her left shoulder or orthostatic symptoms. Exam is is unremarkable. There is slight bleeding noted. Os is closed. Positive Smock's sign. No cervical motion tenderness. Uterus is appropriate size for presumed dates. Transabdominal ultrasound revealed uterine cavity. I did not appreciate a yolk sac or fetus. Ovaries appeared normal. Medical Decision Making differential diagnosis is threatened miscarriage versus incomplete miscarriage versus spontaneous complete miscarriage. Also need to evaluate for blood type since there is no record of blood type at [facility] and she is uncertain of her blood type. UA was obtained there is no evidence of infection. Dr. Dasilva her patient service coordinator is on-call. She was notified. She would like an outpatient ultrasound and for patient to contact the office on Monday. Other additions or changes: [None] Lab Data Labs: Laboratory Results - last 24 hr 10/28/23 10/28/23 20:45 20:55 HCG, Quant [id number] H Urine Color Yellow Urine Clarity Clear Urine pH 7.0 Ur Specific [employer] 1.020 Urine Protein 15 H Urine Glucose (UA) Normal Urine Ketones 5 H Urine Occult Blood 150 H Urine Nitrite Negative Urine Bilirubin Negative Urine Urobilinogen Normal Ur Leukocyte Esterase 25 H Urine RBC 0-5 SEEN Urine WBC 0-5 SEEN Ur Squamous Epith Cells 0-5 SEEN Amorphous Sediment 1+ Urine Bacteria 0 SEEN Urine Mucus 0 SEEN Blood Type A POSITIVE Management Discussion w/another healthcare provider: Channel [facility] (Procurement Professional, Dr. Maddie Dasilva) Discharge Plan Triage Chief Complaint: Vag Bld, Preg ED Midlevel Provider: Marielle Sandoval ED Provider: Joey Gupta Dx/Rx/DC Orders Clinical Impression: Abdominal pain during , Miscarriage, threatened, early Instructions: Miscarriage Threatened Prescriptions: No Action sertraline [Zoloft] 50 mg tablet 50 mg PO DAILY Probiotic 10 billion cell capsule 100 mmu cells PO DAILY PNV cmb#95-ferrous fumarate-FA [] 28 mg iron- 800 mcg tablet 1 tab PO DAILY Other Ambulatory Orders: Pelvic w/ Transvaginal (Routine) Facility: [facility] - Location: [facility] Ordered By: Dr. Joey Gupta Primary Care Provider: Lindsey Farrell Referrals: Lindsey Farrell DO [Primary Care Provider] - Maddie Medina DO [Med Staff - Active Staff] - 2 Days Disposition Disposition: Home, Self Care
[2023-10-28 21:02] LABS: Bacteria 0 SEEN /hpf (None Seen); Mucous, Urine 0 SEEN /hpf (<or=2+)
[2023-10-28 21:04] LABS: Color, Urine Yellow (Yellow); Glucose, Dipstick Normal (Normal); Ketone-Dipstick 5 mg/dl (Negative); Leukocyte Esterase-Dipstick 25 /ul (Negative); Nitrite-Dipstick Negative (Negative); Occult Blood-Urine 150 /ul (Negative); Protein-Dipstick 15 mg/dl (Negative); Urine Bilirubin Dipstick Negative (Negative); Urine Clarity Clear (Clear); Urine Urobilinogen Normal (Normal)
[2023-10-28 21:10] LABS: Amorphous Sediment 1+; Red Blood Cells-Urine 0-5 SEEN /hpf (0-5); White Blood Cells 0-5 SEEN /hpf (0-5)
[2023-10-28 21:11] LABS: Squamous Epithelial Cells - UA 0-5 SEEN /hpf (5-10)
--- OUTSIDE RECORDS SUMMARY | 2023-10-28 21:22 | XMS RPT_ITS | CCD ---
Author Name Unknown Address [address] [place] [address] Organization [facility] [place] Care Team Providers Care Bakery Helper Name Role Phone Yassine, Joyce Unavailable Fabiola [...] to adverse reactions to drug 7 Hives [facility] Work Phone: (8 sources) Sulfonamides (Antibiotic); Translations: [SULFA (SULFONAMIDE ANTIBIOTICS)] Propensity to adverse reactions to drug 7 Diarrhea [facility] Work Phone: (2 sources) Sulfonamides (Antibiotic) Drug Intolerance 3 [facility] Medications Current Medications Medication Drug Class(es) Dates [...] route twice daily azelastine-flutica sone 137-50 mcg/spray [place] Indications: Chronic seasonal allergic rhinitis, unspecified trigger [...] (Body Mass Index) 25.42 kg/m2 Sonam Connelly [facility] Work Phone: 09-27-2017 15:35-0500 BP Diastolic 72 mm[Hg] Sonam Connelly [facility] Work Phone: 09-27-2017 15:35-0500 BP Systolic 116 mm[Hg] Sonam Connelly [facility] Work Phone: 09-27-2017 15:35-0500 Pulse (Heart Rate) 52 /min Sonam Connelly [facility] Work Phone: 09-27-2017 15:35-0500 Pulse Oximetry 98 % Sonam Connelly [facility] Work Phone: 09-27-2017 15:35-0500 Weight 67.18 kg Sonam Connelly [facility] Work Phone: 08-28-2017 14:13-0500 BMI (Body Mass Index) 25.47 kg/m2 Cullen Butler [facility] Work Phone: 08-28-2017 14:13-0500 BP Diastolic 66 mm[Hg] Cullen Butler [facility] Work Phone: 08-28-2017 14:13-0500 BP Systolic 97 mm[Hg] Cullen Butler [facility] Work Phone: 08-28-2017 14:13-0500 Pulse (Heart Rate) 60 /min Cullen Butler [facility] Work Phone: 08-28-2017 14:13-0500 Pulse Oximetry 98 % Cullen Butler [facility] Work Phone: 08-28-2017 14:13-0500 Weight 67.31 kg Cullen Butler [facility] Work Phone: 07-25-2017 10:23-0500 BMI (Body Mass Index) 26.19 kg/m2 Cullen Butler [facility] Work Phone: 07-25-2017 10:23-0500 BP Diastolic 66 mm[Hg] Cullen Carrie [facility] Work Phone: 07-25-2017 10:23-0500 BP Systolic 99 mm[Hg] Cullen Butler [facility] Work Phone: 07-25-2017 10:23-0500 Height 162.6 cm Cullen Butler [facility] Work Phone: 07-25-2017 10:23-0500 Pulse (Heart Rate) 61 /min Cullen Butler [facility] Work Phone: 07-25-2017 10:23-0500 Pulse Oximetry 98 % Cullen Butler [facility] Work Phone: 07-25-2017 10:23-0500 Weight 69.22 kg Cullen Butler [facility] Work Phone: Encounters Encounter Date Encounter Type Care Provider Facility Start: 01-25-2023 End: 01-25-2023 [facility] Start: 01-24-2023 End: 01-24-2023 Emergency department patient visit LINDSEY TY [facility] Start: 01-24-2023 End: 01-24-2023 Emergency department patient visit Esa Zamora MD Work Phone: [facility] ED Procedures Date Procedure Procedure Detail [...] of 2) Zoster Vaccines (1 of 2) [facility] Start: 04-14-2023 Influenza vaccination [facility] Start: 02-14-2021 COVID-19 Vaccine (3 - Booster for Pfizer series) COVID-19 Vaccine (3 - Booster for Pfizer series) [facility] Start: 08-22-2020 Screening for malignant neoplasm of cervix PAP SMEAR [facility] Work Phone: Start: 2018 Screening for malignant neoplasm of cervix [facility] Start: 01-29-2018 Ambulatory 01/29/2018 Office Visit Dentistry [facility] Start: 01-21-2018 DTaP/Tdap/Td Vaccines (2 - Td or Tdap) DTaP/Tdap/Td Vaccines (2 - Td or Tdap) [facility] Start: 10-10-2017 Ambulatory 10/10/2017 Clinical Support Otolaryngology Cullen Butler, CONCRETE MIXER OPERATOR [address] [facility] [address] [place] [address] [phone] [facility] Start: 10-06-2017 Ambulatory 10/06/2017 Procedure visit Neurology Darin Ding MD [address] [place] [address] [phone] [facility] Neu[facility] Start: 10-05-2017 Ambulatory 10/05/2017 Appointment Cardiology Joyce Arita MD [address] [place] [id number] [facility] Start: 09-28-2017 Ambulatory 09/28/2017 Clinical Support Otolaryngology Cullen Butler CNP [address] [facility] [address] [place] [address] [phone] [facility] Start: 09-20-2017 Ambulatory 09/20/2017 Office Visit Dentistry [facility] Start: 09-04-2017 Ambulatory 09/04/2017 Clinical Support Obstetrics and Gynecology Darleen Barbosa CNP [address] [place] [phone] Laquita Vaca, TECHNOLOGIST [facility] SUPERVISORY CBP OFFICER Start: 08-29-2017 Ambulatory 08/29/2017 Office Visit Dentistry [facility] Start: 08-28-2017 Ambulatory 08/28/2017 Office Visit Otolaryngology Cullen Butler, CONCRETE MIXER OPERATOR [address] [facility] [address] [place] [address] [phone] [facility] Start: 04-14-2017 Influenza vaccination SEQUENTIAL INFLUENZA VACCINE (#1) [facility] Work Phone: Start: 2009 Screening for malignant neoplasm of cervix Pap Smear [facility] Start: 07-28-2009 Varicella vaccination Varicella Vaccines (1 of 2 - 2-dose childhood series) [facility] Start: 12-11-2008 HPV Vaccines (3 - 3-dose series) HPV Vaccines (3 - 3-dose series) [facility] Start: 2006 Diabetes mellitus screening Diabetes Screening [facility] Start: 2006 Hepatitis C screening Hepatitis C Screening [facility] Start: 2000 Depression Screening Depression Screening [facility] Start: 1988 Hepatitis B Vaccines (1 of 3 - 3-dose series) Hepatitis B Vaccines (1 of 3 - 3-dose series) [facility] Start: 1988 HIV screening HIV Screening [facility] Start: 1988 Screening for malignant neoplasm of cervix PAP SMEAR [facility] Work Phone: Start: 1988 Tetanus vaccination TETANUS EVERY 10 YR [facility] Work Phone: End: 08-29-[address] Sinus Routine Chronic sinusitis, unspecified location 1 Occurrences starting 08/29/2017 until 08/29/2018 [facility] Work Phone: ECG 12 lead ECG 12 lead CV E CG STAT 01/24/2023 10:24 PM EDT [facility] Work Phone: OUTSIDE PROCEDURE SCAN OUTSIDE P ROCEDURE SCAN Procedures Ordered: 01/24/2023 [facility] Immunizations Immunization Date Immunization Notes Care Provider Fa cility 06-30-2009 influenza virus vacc ine, unspecified formulation Esa Zamora MD Work Phone: [facility] [employer] 08-12-2008 HPV, unspecified formulation Esa Zamora MD Work Phone: [facility] Payers Date Payer Category Payer Unknown [employer] Brittany INFANTE [id number] 2022-Present [address] [place] [address] Commercial [id number] 2022 Unknown [id number] 2017 Medicaid [id number] 2017 Medicaid [id number] Medicaid [id number] Unknown xxxxxxxxxxx [id number] Social History Date Type Detail Facility Start: 09-27-2017 End: 01-24-2023 Tobacco smoking status SDIS Never smoker [facility] Phone: Start: 1988 Sex Assigned At Not on file [facility] Work Phone: Start: 07-05-2017 Tobacco smoking status SDIS Unknown if ever smoked [facility] Work Phone: Start: 01-24-2023 Tobacco use and exposure Smokeless tobacco non-user [facility] Start: 01-24-2023 Alcohol intake Ex-drinker (finding) [facility] Start: 01-24-2023 History of Social function [facility] Start: 01-24-2023 Alcohol Use Disorder Identification Test - Consumption [AUDIT-C] [facility] How often to you hav e a drink containing alcohol? Never [facility] How many standard dr inks containing alcohol do you have on a typical day? Patient does not drink [facility] Start: 01-14-2023 End: 01-24-2023 Exposure to SARS-CoV-2 (event) Not sure [facility] Discharge instructions 06-13-2023 Discharge Instructions Note Date & Type Note Facility 01-24-2023 Hospital Discharg e instructions Esa Zamora MD - 01/24/2023 8:43 PM EDT You were seen at the [facility] emergency department for abdominal pain that radiates around your side. Your labs and CT were normal. Your urine had some trace signs of infection but mostly was concerning for blood which is expected on your menstrual cycle. Please take the antibiotics your doctor prescribed you this morning and follow-up with them. documented in this encounter [facility] Emergency department Note 01-24-2023 Raven Park RN - 01/24/2023 4:31 PM EDT Note Date & Type Note Facility 01-24-2023 Emergency department Note For matting of this note might be different from the original. EKG called. Raven Park RN 01/24/23 1632 [facility] Emergency department Note 01-24-2023 Raven Park RN - 01/24/2023 4:31 PM EDTHeurba Park RN - 01/24/2023 4:30 PM EDT [...] RN 01/24/23 1631 documented in this encounter [facility] Emergency department Note 01-24-2023 Raven Park RN [...] for appendicitis. Raven Park RN 01/24/[address] [facility] Note Date & [...] DATE CREATED AUTHOR AUTHOR'S ORGANIZ ATION 02/02/2018 [facility] DATE CREATED AUTHOR AUTHOR'S ORGANIZ ATION 02/06/2018 [facility] DATE CREATED AUTHOR AUTHOR'S ORGANIZ ATION 02/07/2018 [facility] DATE CREATED AUTHOR AUTHOR'S ORGANIZ ATION 03/19/2022 [facility] DATE CREATED AUTHOR AUTHOR'S ORGANIZ ATION 01/28/2023 [facility] Reason for Visit (unrecogniz ed section and content) Scheduled Active and Recently Administ ered Medications (unrecognized section and content) PRN Medication Order 01/22/2023 01/23/2023 01/24/2023 iopamidol (Isovue-370) 76 % injection 75 mL (COMPLETED) 75 mL, IntraVENous, IMG once PRN, contrast, Starting on Mon01/24/23 at 1955, For 1 dose 1954 (Given - Provid er: Talia Perales) Care Teams (unrecognized sec tion and content) Bakery Helper Relationship Specialty Start Date End Date Bud Lindsey, [address] [place] [address] PCP - General 03/15/22 FOR RECORDS PERTAINING [...] BE BASED ON THE PRIMARY CLINICAL RECORDS. [employer] provides no warranty or guarantee of the accuracy or completeness of information in this document.
[2023-10-28 21:43] LABS: hCG Titer Quant., Serum 17918 mIU/mL (1-3)
[2023-10-28 22:37] VITALS: BP 116/55; PULSE 82; RESP 16; O2SAT 97
[2023-10-28 22:51] VITALS: BP 125/64; PULSE 76; RESP 18; TEMP 36.8; O2SAT 96
== END 2023-10-28 22:58 | disposition home or self-care (01) ==
PROVIDERS: Physician Assistant; Emergency Provider Emergency Medicine; PCP Family Medicine; Visit Provider Emergency Medicine
DX: O99.891 Other specified diseases and conditions complicating pregnancy (principal); O20.0 Threatened abortion; R10.9 Unspecified abdominal pain; Z3A.01 Less than 8 weeks gestation of pregnancy; Z79.899 Other long term (current) drug therapy; Z86.711 Personal history of pulmonary embolism
CPT/HCPCS: 81001; 84702; 86900; 86901; 99282; A4216

== ENCOUNTER 2023-10-29 12:28 | Emergency (ER) | payer BC, SELFPAY ==
[2023-10-29 12:30] VITALS: BP 103/61; PULSE 81; RESP 14; TEMP 35.7; O2SAT 97; BMI 32.8
--- NOTE | 2023-10-29 12:51 | US_ITS ---
STUDY: FIRST TRIMESTER OBSTETRICAL ULTRASOUND REASON FOR EXAM: Female, 32 years old pain and bleeding LMP: 09/09/2019 TECHNIQUE: Transabdominal and Transvaginal TECHNICAL QUALITY: Adequate. PRIOR ULTRASOUND: None. FINDINGS: There is visualization of a single gestational sac in a normal intrauterine position. The mean sac diameter (MSD) measures 1.2 cm, indicating an estimated gestational age (EGA) of 6 weeks, 0 days. The gestational sac shape is within normal limits. There is a visualized yolk sac. Yolk sac measures 0.28 cm The placenta is non-visualized. There is visualization of an embryo. The crown-rump length (CRL) measures 0.17 cm, indicating an estimated gestational age (EGA) of 6 weeks, 0 days. There is NO demonstrated cardiac activity The estimated gestation age (EGA) by LMP is 7 weeks, 1 days. The estimated date of delivery (KEVIN) by LMP is 06/15/2024. The estimated gestation age (EGA) by US is 6 weeks, 0 days. The estimated date of delivery (KEVIN) by US is 06/23/2024. The uterus measures 9.1 x 5.6 x 4.7 cm. There is a 1.2 cm anterior fibroid The cervix is closed. The right ovary measures 2.5 x 2.0 x 1.5 cm. There is no right ovarian cyst. There is no visualized right adnexal mass or complex lesion. The left ovary measures 2.4 x 2.9 x 1.6 cm. There is no left ovarian cyst. There is no visualized left adnexal mass or complex lesion. There is no fluid in the cul de sac. US/Transvaginal w/Preg US IMPRESSION: There is a normal-appearing intrauterine gestational sac containing a pole measuring 6 weeks 0 days by ultrasound.. There is a yolk sac but no heart rate identified. It may be too early to determine viability. Recommend serial beta-hCG studies and follow-up ultrasound in 3-5 days to reevaluate No suspicious adnexal mass or free fluid Small uterine fibroid Electronically Signed: Alex Hidalgo MD at 14:01 EDT ,
--- NOTE | 2023-10-29 12:52 | EDS_ITS ---
HPI HPI - Female History of Present Illness Chief Complaint: Vag Bld, Preg Detail of Chief Complaint: Pelvic pain vaginal bleeding with Informant: patient and spouse/S.O. Narrative Narrative: Patient presents with pelvic pain and vaginal bleeding and thinks is about 7 weeks . Patient states that she has been spotting since she found out she was . At times passes some small clots less than dime size. She was seen in the emergency department last night and had a quant that was 17,000. No formal ultrasound was done. Urinalysis was unremarkable. Patient continues to have pain. Patient's PARQUET FLOOR LAYER'S HELPER Dr. Dasilva called and asked that we obtain a formal pelvic ultrasound to rule out ectopic. Currently rates her pain a 5 out of 10. Pain mostly left-sided. Patient is with recent miscarriage in July 2023. PFSH PFSH Medical History Anxiety Anxiety and depression Back pain Blackout Depression Dysmenorrhea Gastric reflux History of IBS Hx pulmonary embolism Infertility Injury of back Wears contact lenses Wears glasses Home Medications sertraline 50 mg tablet (Zoloft) 50 mg PO DAILY 04/05/23 [History Last Taken Unknown] Lactobacillus acidophilus 10 billion cell capsule (Probiotic) 100 mmu cells PO DAILY 05/10/23 [History Last Taken Unknown] vit no.95-ferrous fumarate 28 mg-folic acid 800 mcg tablet () 1 tab PO DAILY 08/03/23 [History Last Taken Unknown] Allergy/AdvReac Type Severity Reaction Status Date / Time hydromorphone [From Dilaudid] Allergy Hives Verified 10/29/23 12:29 Sulfa (Sulfonamide Allergy Diarrhea Verified 10/29/23 12:29 Antibiotics) Family History Father Heart disease Hypertension Surgical History Status post hysteroscopy (~05/23/23) Social History Smoking Status: Never smoker ROS ROS ED Review of Systems ROS Unobtainable: other Constitutional Constitutional ED: Reports lethargy; Denies chills, fever(s), sweats or weight loss Eyes Eyes: Denies blurry vision, change in vision or diplopia ENT ENT ED: Denies rhinorrhea or sore throat Cardiovascular Cardiovascular: Denies chest pain, orthopnea or racing heartbeat Respiratory/Chest Respiratory/Chest: Denies cough, dyspnea, dyspnea on exertion, orthopnea or sputum Gastrointestinal Gastrointestinal: Denies abdominal pain, diarrhea, nausea or vomiting Genitourinary Genitourinary ED: Reports other Details: Pelvic pain vaginal bleeding ; Denies dysuria, hematuria or urinary frequency Musculoskeletal Musculoskeletal: Denies arthralgias, back pain, myalgias or neck pain Integumentary Denies abscess, Abrasions or rash Neurologic Neurologic: Denies headache(s) or weakness Psychiatric Psychiatric: Denies anxiety, depression or suicidal thoughts Endocrine Endocrinology: Denies polydipsia, polyphagia or polyuria Hematologic/Lymphatic Hematologic/Lymphatic: Denies easy bleeding, easy bruising or lymphadenopathy Allergic/Immunologic Allergic/Immunologic ED: Denies mouth swelling, tongue swelling or urticaria EXAM Physical Exam Const Vital Signs: 10/29/23 12:30 10/29/23 14:32 Temperature 96.3 F L 97.8 F Temperature Source Temporal Pulse Rate 81 87 Respiratory Rate 14 16 Blood Pressure 103/61 105/78 Blood Pressure Mean 75 87 Pulse Ox 97 99 Oxygen Delivery Method Room Air Positive well nourished and well developed General Appearance ED: well developed and NAD HEENT Reports TM's clear and moist mucous membranes normocephalic and atraumatic; Negative for trauma or tenderness Tympanic Membrane ED: Yes TM's clear Eyes PERRL and EOMs intact bilaterally General Eye ED: Negative for pale conjunctiva or scleral icterus Neck no lymphadenopathy, supple and no JVD General: Negative for tenderness Chest Wall inspection of chest normal and palpation of chest normal Chest: Negative for tenderness Resp normal respiratory effort and clear to auscultation bilaterally Effort and Inspection: Negative for respiratory distress or pain with movement Auscultation: Negative for rhonchi, wheezes or diminished lung sounds Cardio regular rate, regular rhythm, S1 normal heart sound, S2 normal heart sound and no murmurs Peripheral Pulses: pulses 2+ throughout GI normal to inspection, nondistended, normoactive bowel sounds, soft to palpation, non-tender, non-distended and no masses GI Narrative: Mild tenderness on exam over the left lower quadrant and pelvic region. There is no rebound, rigidity, or purulent signs. No mass palpated. Patient also with some tenderness over the suprapubic region and right lower quadrant. Back/Spine no CVA tenderness and no thoracic nor lumbar tenderness Extremity normal to inspection General Extremety ED: Negative for edema General Extremity: Negative for edema Neuro oriented x3, CN's II-XII intact bilaterally, no sensory deficits noted and gait normal Sensorium / Orientation: awake, alert, oriented to person, oriented to place and oriented to time Motor Exam: strength 5/5 throughout and strength abnormal Psych mental status grossly normal Skin no rashes or lesions noted and no wounds MDM MDM MDM Narrative Medical decision making narrative: Patient presents with lower abdomen pain in and vaginal bleeding. Pelvic ultrasound was obtained and showed gestational sac intrauterine with fe carolin pole measuring 6 weeks 0 days was a yolk sac present but no heartbeat noted. Postulated may be early viable recommended follow-up and repeat quant's. Will discuss case with [employer] F[employer]OR L[employer]ER'S HELPER on-call Dr. Dasilva who send the patient in. CBC with differential obtained showed a white count of 7.2 with hemoglobin 11.7 and platelet count of 234. Patient does not have an acute abdomen on exam. Lab Data Attestation: I reviewed the patient's lab results. Labs: Laboratory Results - last 24 hr 10/29/23 13:08 WBC 7.2 RBC 4.42 Hgb 11.7 L Hct 37.7 MCV 85.3 MCH 26.5 L MCHC 31.0 L RDW Std Deviation 41.3 RDW Coeff of Maynor 13.3 Plt Count 234 MPV 9.2 Immature Gran % (Auto) 0.300 Neut % (Auto) 66.9 Lymph % (Auto) 25.4 [place] % (Auto) 6.2 Eos % (Auto) 0.8 Baso % (Auto) 0.4 Absolute Neuts (auto) 4.8 Absolute Lymphs (auto) 1.84 Nucleated RBC % 0 Radiography Diagnostic Testing: Clinical Impression(s) from Imaging Studies Obstetrics Ultrasound 10/29/23 12:51 IMPRESSION: There is a normal-appearing intrauterine gestational sac containing a pole measuring 6 weeks 0 days by ultrasound.. There is a yolk sac but no heart rate identified. It may be too early to determine viability. Recommend serial beta-hCG studies and follow-up ultrasound in 3-5 days to reevaluate No suspicious adnexal mass or free fluid Small uterine fibroid Electronically Signed: Alex Hidalgo MD at 14:01 EDT , Discharge Plan Triage Chief Complaint: Vag Bld, Preg ED Provider: Tad Abdullahi Dx/Rx/DC Orders Clinical Impression: , threatened Instructions: Miscarriage Threatened Prescriptions: No Action sertraline [Zoloft] 50 mg tablet 50 mg PO DAILY Probiotic 10 billion cell capsule 100 mmu cells PO DAILY PNV cmb#95-ferrous fumarate-FA [] 28 mg iron- 800 mcg tablet 1 tab PO DAILY Primary Care Provider: Lindsey Farrell Referrals: Lindsey Farrell DO [Primary Care Provider] - Maddie Medina DO [Med Staff - Active Staff] - 3-5 Days Disposition Disposition: Home, Self Care Discharge Date/Time: 10/29/23 14:35
[2023-10-29 13:20] LABS: Absolute Lymphocyte Count 1.84 X10^3/uL (0.83-4.51); Absolute Neutrophil Count 4.8 X10^3/uL (2.0-7.7); Basophil# 0.03 X10^3/uL; Basophil% 0.4 % (0-1); Eosinophil# 0.06 X10^3/uL; Eosinophils% 0.8 % (0-5); Hematocrit 37.7 % (37-47); Hemoglobin 11.7 g/dL (12.0-15.0); Lymphocyte # 1.84 X10^3/ul (0.83-4.51); Lymphocyte % 25.4 % (19-41); Mean Corpuscular Hgb 26.5 pg (27.0-32.0); Mean Corpuscular Volume 85.3 fL (81-99); Mean Platelet Vol. 9.2 fl (6.2-12.0); Monocyte# 0.45 X10^3/uL; Monocyte% 6.2 % (0-10); NRBC Flagged by Analyzer 0 % (0-5); Neutrophil # 4.84 X10^3/uL (2.7-7.7); Neutrophil % 66.9 % (47-70); Platelet Count 234 K/mm3 (150-450); RBC Distribution Width CV 13.3 % (11.6-14.6); RBC Distribution Width SD 41.3 fl (35.1-43.9); Red Blood Count 4.42 M/mm3 (4.2-5.4); White Blood Count 7.2 K/mm3 (4.4-11.0)
--- OUTSIDE RECORDS SUMMARY | 2023-10-29 13:21 | XMS RPT_ITS | CCD ---
Author Name Unknown Address [address] [place] [address] [facility] Care Team Providers Care Senior Administrator Support Name Role Phone Yassine, Joyce Unavailable Fabiola Gilbert N. Unavailable Unavailable Vladimir Fabiola N. Unavailable [phone] Unavailable Unavailable Unavailable PRYKHODKO, SONAM OLEKSEYOVICH [...] to adverse reactions to drug 7 Hives [facility] Work Phone: (8 sources) Sulfonamides (Antibiotic); Translations: [SULFA (SULFONAMIDE ANTIBIOTICS)] Propensity to adverse reactions to drug 7 Diarrhea [facility] Work Phone: (2 sources) Sulfonamides (Antibiotic) Drug Intolerance 3 [facility] Medications Current Medications Medication Drug Class(es) Dates [...] route twice daily azelastine-flutica sone 137-50 mcg/spray [place] Indications: Chronic seasonal allergic rhinitis, unspecified trigger [...] (Body Mass Index) 25.42 kg/m2 Sonam Connelly [facility] Work Phone: 09-27-2017 15:35-0500 BP Diastolic 72 mm[Hg] Sonam Connelly [facility] Work Phone: 09-27-2017 15:35-0500 BP Systolic 116 mm[Hg] Sonam Connelly [facility] Work Phone: 09-27-2017 15:35-0500 Pulse (Heart Rate) 52 /min Sonam Connelly [facility] Work Phone: 09-27-2017 15:35-0500 Pulse Oximetry 98 % Sonam Connelly [facility] Work Phone: 09-27-2017 15:35-0500 Weight 67.18 kg Sonam Connelly [facility] Work Phone: 08-28-2017 14:13-0500 BMI (Body Mass Index) 25.47 kg/m2 Cullen Butler [facility] Work Phone: 08-28-2017 14:13-0500 BP Diastolic 66 mm[Hg] Cullen Butler [facility] Work Phone: 08-28-2017 14:13-0500 BP Systolic 97 mm[Hg] Cullen Butler [facility] Work Phone: 08-28-2017 14:13-0500 Pulse (Heart Rate) 60 /min Cullen Butler [facility] Work Phone: 08-28-2017 14:13-0500 Pulse Oximetry 98 % Cullen Butler [facility] Work Phone: 08-28-2017 14:13-0500 Weight 67.31 kg Cullen Butler [facility] Work Phone: 07-25-2017 10:23-0500 BMI (Body Mass Index) 26.19 kg/m2 Cullen Butler [facility] Work Phone: 07-25-2017 10:23-0500 BP Diastolic 66 mm[Hg] Cullen Carrie [facility] Work Phone: 07-25-2017 10:23-0500 BP Systolic 99 mm[Hg] Cullen Butler [facility] Work Phone: 07-25-2017 10:23-0500 Height 162.6 cm Cullen Butler [facility] Work Phone: 07-25-2017 10:23-0500 Pulse (Heart Rate) 61 /min Cullen Butler [facility] Work Phone: 07-25-2017 10:23-0500 Pulse Oximetry 98 % Cullen Butler [facility] Work Phone: 07-25-2017 10:23-0500 Weight 69.22 kg Cullen Butler [facility] Work Phone: Encounters Encounter Date Encounter Type Care Provider Facility Start: 01-25-2023 End: 01-25-2023 [facility] Start: 01-24-2023 End: 01-24-2023 Emergency department patient visit LINDSEY TY [facility] Start: 01-24-2023 End: 01-24-2023 Emergency department patient visit Esa Zamora MD Work Phone: [facility] Procedures Date Procedure Procedure Detail [...] of 2) Zoster Vaccines (1 of 2) [facility] Start: 04-14-2023 Influenza vaccination [facility] Start: 02-14-2021 COVID-19 Vaccine (3 - Booster for Pfizer series) COVID-19 Vaccine (3 - Booster for Pfizer series) [facility] Start: 08-22-2020 Screening for malignant neoplasm of cervix PAP SMEAR [facility] Work Phone: Start: 2018 Screening for malignant neoplasm of cervix [facility] Start: 01-29-2018 Ambulatory 01/29/2018 Office Visit Dentistry [facility] Start: 01-21-2018 DTaP/Tdap/Td Vaccines (2 - Td or Tdap) DTaP/Tdap/Td Vaccines (2 - Td or Tdap) [facility] Start: 10-10-2017 Ambulatory 10/10/2017 Clinical Support Otolaryngology Cullen Butler, PROMOTIONS COORDINATOR [address] [facility] [address] [place] [address] [phone] [facility] Start: 10-06-2017 Ambulatory 10/06/2017 Procedure visit Neurology Darin Ding MD [address] [place] [address] [phone] [facility] Start: 10-05-2017 Ambulatory 10/05/2017 Appointment Cardiology Joyce Arita MD [address] [place] [phone] [facility] Start: 09-28-2017 Ambulatory 09/28/2017 Clinical Support Otolaryngology Cullen Butler CNP [address] [facility] [address] [place] [address] [phone] [facility] Start: 09-20-2017 Ambulatory 09/20/2017 Office Visit Dentistry [facility] Start: 09-04-2017 Ambulatory 09/04/2017 Clinical Support Obstetrics and Gynecology Darleen Barbosa CNP [address] [place] [phone] Laquita Vaca, TECHNOLOGIST [facility] EXTRUSION DIE REPAIR MANAGER Start: 08-29-2017 Ambulatory 08/29/2017 Office Visit Dentistry [facility] Start: 08-28-2017 Ambulatory 08/28/2017 Office Visit Otolaryngology Cullen Butler, PROMOTIONS COORDINATOR [address] [facility] [address] [place] [address] [phone] [facility] Start: 04-14-2017 Influenza vaccination SEQUENTIAL INFLUENZA VACCINE (#1) [facility] Work Phone: Start: 2009 Screening for malignant neoplasm of cervix Pap Smear [facility] Start: 07-28-2009 Varicella vaccination Varicella Vaccines (1 of 2 - 2-dose childhood series) [facility] Start: 12-11-2008 HPV Vaccines (3 - 3-dose series) HPV Vaccines (3 - 3-dose series) [facility] Start: 2006 Diabetes mellitus screening Diabetes Screening [facility] Start: 2006 Hepatitis C screening Hepatitis C Screening [facility] Start: 2000 Depression Screening Depression Screening [facility] Start: 1988 Hepatitis B Vaccines (1 of 3 - 3-dose series) Hepatitis B Vaccines (1 of 3 - 3-dose series) [facility] Start: 1988 HIV screening HIV Screening [facility] Start: 1988 Screening for malignant neoplasm of cervix PAP SMEAR [facility] Work Phone: Start: 1988 Tetanus vaccination TETANUS EVERY 10 YR [facility] Work Phone: End: 08-29-[address] Sinus Routine Chronic sinusitis, unspecified location 1 Occurrences starting 08/29/2017 until 08/29/2018 [facility] Work Phone: ECG 12 lead ECG 12 lead CV E CG STAT 01/24/2023 10:24 PM EDT [facility] Work Phone: OUTSIDE PROCEDURE SCAN OUTSIDE P ROCEDURE SCAN Procedures Ordered: 01/24/2023 [facility] Immunizations Immunization Date Immunization Notes Care Provider Fa cility 06-30-2009 influenza virus vacc ine, unspecified formulation Esa Zamora MD Work Phone: [facility] AccuRev 08-12-2008 HPV, unspecified formulation Esa Zamora MD Work Phone: [facility] Payers Date Payer Category Payer Unknown [employer] INFANTE [id number] 2022-Present [address] [place] [address] Commercial [id number] 2022 Unknown [id number] 2017 Medicaid [id number] 2017 Medicaid [id number] Medicaid [id number] Unknown xxxxxxxxxxx [id number] Social History Date Type Detail Facility Start: 09-27-2017 End: 01-24-2023 Tobacco smoking status AZIS Never smoker [facility] Phone: Start: 1990 Sex Assigned At Not on file [facility] Work Phone: Start: 07-05-2017 Tobacco smoking status AZIS Unknown if ever smoked [facility] Work Phone: Start: 01-24-2023 Tobacco use and exposure Smokeless tobacco non-user [facility] Start: 01-24-2023 Alcohol intake Ex-drinker (finding) [facility] Start: 01-24-2023 History of Social function [facility] Start: 01-24-2023 Alcohol Use Disorder Identification Test - Consumption [AUDIT-C] [facility] How often to you hav e a drink containing alcohol? Never [facility] How many standard dr inks containing alcohol do you have on a typical day? Patient does not drink [facility] Start: 01-14-2023 End: 01-24-2023 Exposure to SARS-CoV-2 (event) Not sure [facility] Hospital Discharge instructions 06-13-2023 Discharge Instructions Note Date & Type Note Facility 01-24-2023 Hospital Discharg e instructions Esa Zamora MD - 01/24/2023 8:43 PM EDT You were seen at the [facility] emergency department for abdominal pain that radiates around your side. Your labs and CT were normal. Your urine had some trace signs of infection but mostly was concerning for blood which is expected on your menstrual cycle. Please take the antibiotics your doctor prescribed you this morning and follow-up with them. documented in this encounter [facility] Emergency department Note 01-24-2023 Raven Park RN - 01/24/2023 4:31 PM EDT Note Date & Type Note Facility 01-24-2023 Emergency department Note For matting of this note might be different from the original. EKG called. Raven Park RN 01/24/23 1632 [facility] Emergency department Note 01-24-2023 Raven Park RN [...] RN 01/24/23 1631 documented in this encounter [facility] Emergency department Note 01-24-2023 Raven Park RN [...] for appendicitis. Raven Park RN 01/24/23 1631 [facility] Note Date & [...] DATE CREATED AUTHOR AUTHOR'S ORGANIZ ATION 02/02/2018 [facility] DATE CREATED AUTHOR AUTHOR'S ORGANIZ ATION 02/06/2018 [facility] DATE CREATED AUTHOR AUTHOR'S ORGANIZ ATION 02/07/2018 [facility] DATE CREATED AUTHOR AUTHOR'S ORGANIZ ATION 03/19/2022 [facility] DATE CREATED AUTHOR AUTHOR'S ORGANIZ ATION 01/28/2023 [facility] Reason for Visit (unrecogniz ed section and content) Scheduled Active and Recently Administ ered Medications (unrecognized section and content) PRN Medication Order 01/22/2023 01/23/2023 01/24/2023 iopamidol (Isovue-370) 76 % injection 75 mL (COMPLETED) 75 mL, IntraVENous, IMG once PRN, contrast, Starting on Mon01/24/23 at 1955, For 1 dose 1954 (Given - Provid er: Talia Perales) Care Teams (unrecognized sec tion and content) Senior Administrator Support Relationship Specialty Start Date End Date Bud Lindsey, [address] [place] [address] PCP - General 03/15/22 FOR RECORDS PERTAINING [...] BE BASED ON THE PRIMARY CLINICAL RECORDS. [employer] provides no warranty or guarantee of the accuracy or completeness of information in this document.
[2023-10-29] MEDS: 0.9% Normal Saline (1000mL) 1,000 ML 1000 ML IV (13:35)
[2023-10-29 14:32] VITALS: BP 105/78; PULSE 87; RESP 16; TEMP 36.6; O2SAT 99
== END 2023-10-29 14:35 | disposition home or self-care (01) ==
PROVIDERS: Emergency Provider Emergency Medicine; PCP Family Medicine; Visit Provider Emergency Medicine
DX: O20.0 Threatened abortion (principal); Z3A.01 Less than 8 weeks gestation of pregnancy; Z86.711 Personal history of pulmonary embolism
CPT/HCPCS: 76817; 85025; 96360; 99283; J7030

== ENCOUNTER → 2023-11-02 | Outpatient (CLI) | payer BC, SELFPAY ==
--- NOTE | 2023-11-02 12:11 | US_ITS ---
INDICATION: dating/viability EXAMINATION: Ultrasound US OB Transvaginal TECHNIQUE: Transabdominal pelvic ultrasound was performed. Grayscale, spectral waveform, and color flow Doppler evaluation of the adnexa. COMPARISON: Prior study dated: 10/29/2023 LMP: [09/09/2023 Beta-hCG: Unknown FINDINGS: UTERUS: The uterus measures 9.8 x 5.8 x 5.1 cm. There is a small fibroid measuring about 1.5 cm. RIGHT OVARY: The right ovary measures 2.5 x 2.1 x 1.7 cm. Normal. LEFT OVARY: The left ovary measures 2.7 x 2.7 x 1.7 cm. Normal. FREE FLUID: None. INTRAUTERINE GESTATIONAL SAC(s) (size/shape): Single. The gestational sac measures 1.9 cm in mean sac diameter which corresponds approximately 6 weeks and 6 days. YOLK SAC: Identified measuring about 4 mm. POLE: Identified CRL 7 mm which corresponds to approximately 6 weeks and 5 days. ESTIMATED GESTATION AGE: 6 weeks and 6 days. HEART MOTION: 120 bpm. PLACENTA: Not visualized due to age. SUBCHORIONIC HEMORRHAGE: None. AMNIOTIC FLUID: Qualitatively normal. US/Transvaginal w/Preg US IMPRESSION: 1. Single live intrauterine . Estimated gestational age is 6 weeks and 6 days. The KEVIN is 06/21/2024. 2. Small uterine fibroid. Electronically Signed: Donovan Shankar MD at 14:50 EDT ,
== END | disposition home or self-care (01) ==
PROVIDERS: PCP Family Medicine; Referring Provider Registered Nurse; Visit Provider Registered Nurse
DX: O26.859 Spotting complicating pregnancy, unspecified trimester (principal); Z3A.00 Weeks of gestation of pregnancy not specified
CPT/HCPCS: 76817

== ENCOUNTER → 2023-11-27 | Outpatient (CLI) | payer BC, SELFPAY ==
[2023-11-27 17:14] LABS: Absolute Lymphocyte Count 1.86 X10^3/uL (0.83-4.51); Absolute Neutrophil Count 6.3 X10^3/uL (2.0-7.7); Basophil# 0.03 X10^3/uL; Basophil% 0.3 % (0-1); Eosinophil# 0.08 X10^3/uL; Eosinophils% 0.9 % (0-5); Hematocrit 36.4 % (37-47); Hemoglobin 11.5 g/dL (12.0-15.0); Lymphocyte # 1.86 X10^3/ul (0.83-4.51); Lymphocyte % 21.1 % (19-41); Mean Corp Hgb Conc 31.6 g/dL (32-36); Mean Corpuscular Hgb 26.9 pg (27.0-32.0); Mean Platelet Vol. 9.4 fl (6.2-12.0); Monocyte# 0.56 X10^3/uL; Monocyte% 6.3 % (0-10); NRBC Flagged by Analyzer 0 % (0-5); Neutrophil # 6.25 X10^3/uL (2.7-7.7); Neutrophil % 70.9 % (47-70); Platelet Count 240 K/mm3 (150-450); RBC Distribution Width CV 14.1 % (11.6-14.6); RBC Distribution Width SD 42.8 fl (35.1-43.9); Red Blood Count 4.28 M/mm3 (4.2-5.4); White Blood Count 8.8 K/mm3 (4.4-11.0)
[2023-11-27 17:36] LABS: Hemoglobin A1c 5.5 % (3.8-5.6)
[2023-11-27 18:32] LABS: HIV - WCH Non-Reactive (Nonreactive); Hepatitis B Surface Antigen Non-Reactive (Nonreactive); Hepatitis C Antibody Non-Reactive (Nonreactive); Rubella IgG Reactive (Nonreactive); Syphilis Antibodies Non-reactive
[2023-11-30 08:12] LABS: Chlamydia By Nucleic Acid AMP Negative (Negative); Gonococcus By Nucleic Acid AMP Negative (Negative)
== END | disposition home or self-care (01) ==
PROVIDERS: PCP Family Medicine; Referring Provider Obstetrics & Gynecology; Visit Provider Obstetrics & Gynecology
DX: O09.90 Supervision of high risk pregnancy, unspecified, unspecified trimester (principal); Z3A.00 Weeks of gestation of pregnancy not specified
CPT/HCPCS: 83036; 85025; 86703; 86762; 86780; 86803; 86850; 86900; 86901; 87077; 87086; 87088; 87186; 87340; 87491; 87591

== ENCOUNTER 2023-12-20 11:13 | Emergency (ER) | payer BC, SELFPAY ==
[2023-12-20 11:14] VITALS: BP 104/65; PULSE 97; RESP 18; TEMP 36.6; O2SAT 98; BMI 30.9
--- NOTE | 2023-12-20 11:34 | ED.RN ---
pt complaining of pelvic pain that originally started as right-sided lower abd pain, now more generalized with left-sided lower abd pain as well as pain in the pelvic region. cramping pain rated 10/10 at its worse. relieved slightly with Tylenol yesterday. no medications taken today for pain.
--- NOTE | 2023-12-20 11:50 | US_ITS ---
STUDY: FIRST TRIMESTER OBSTETRICAL ULTRASOUND REASON FOR EXAM: Female, 33 years old pelvic pain. LMP: September 15, 2023. TECHNIQUE: Transabdominal and Transvaginal TECHNICAL QUALITY: Adequate. PRIOR ULTRASOUND: Comparison is made with prior study November 02, 2023. FINDINGS: There is visualization of a single gestational sac in a normal intrauterine position. The mean sac diameter (MSD) measures 7.05 cm, indicating an estimated gestational age (EGA) of 13 weeks, 4 days. The gestational sac shape is within normal limits. There is no demonstrated yolk sac. The placenta is non-visualized. There is visualization of a live embryo. The crown-rump length (CRL) measures 7.79 cm, indicating an estimated gestational age (EGA) of 13 weeks, 5 days. There is demonstrated cardiac activity with a heart rate of 152 bpm. The estimated gestation age (EGA) by LMP is 13 weeks, 5 days. The estimated date of delivery (KEVIN) by LMP is June 21, 2024. The estimated gestation age (EGA) by US is 13 weeks, 5 days. The estimated date of delivery (KEVIN) by US is June 21, 2024. The uterus measures 14.2 cm x 9.6 x 9.5 cm. 2 fibroids are seen. The largest fibroid is seen posterior and lateral to the body of the uterus measuring 2.1 sono by 2 cm x 1.5 cm. The cervix is closed. The right ovary measures 4.4 cm x 2.6 x 2 cm. There is no right ovarian cyst. There is no visualized right adnexal mass or complex lesion. The left ovary measures 3.3 cm x 1.9 cm x 2.2 cm.. There is no left ovarian cyst. There is no visualized left adnexal mass or complex lesion. There is no fluid in the cul de sac. US/Init OB < 14Wks US IMPRESSION: Single live intrauterine gestation with a mean gestational age of 13 weeks and 5 days. 2 uterine fibroids. The larger measures 2.1 cm x 2.7 x 1.5 cm. Electronically Signed: Vernon Quinonez MD at 14:21 EDT ,
--- NOTE | 2023-12-20 12:03 | ED.VIS.FEGU ---
HPI HPI - Female History of Present Illness Chief Complaint: Narrative Narrative: 33-year-old female presenting with suprapubic pain. She is 13 weeks gestation. She is unsure if this is just growing pains or something different. She states the pain has been coming and going. It seems to start in the middle and does move both to the left into the right. Patient has had a confirmed intrauterine . She has a history of miscarriage and difficulty with getting . This is the pharmacy along she states she has been. She does state that on her 10-week ultrasound they noticed that she had a subchorionic hemorrhage and she had some bleeding initially at the 10-week emmanuel but has not had any vaginal bleeding or loss of fluid since then. She denies urinary complaints. She states he is a little bit constipated but does not think that is the issue. PFSH PFS Medical History Anxiety Anxiety and depression Back pain Blackout Depression Dysmenorrhea Endocervical polyp Gastric reflux History of IBS Hx pulmonary embolism Infertility Injury of back Irregular menses Recurrent UTI Seasonal allergies Viral encephalitis Wears contact lenses Wears glasses Home Medications sertraline 50 mg tablet (Zoloft) 50 mg PO DAILY 04/05/23 [History Last Taken Unknown] Lactobacillus acidophilus 10 billion cell capsule (Probiotic) 100 mmu cells PO DAILY 05/10/23 [History Last Taken Unknown] PNV 153-FA 400 mcg-om3 35 mg-dha 25 mg-epa 5 mg-fish oil chew tablet tab PO 11/21/23 [History Last Taken Unknown] ferrous sulfate 137 mg (45 mg iron) tablet,extended release (Slow Fe) mg PO 11/21/23 [History Last Taken Unknown] Allergy/AdvReac Type Severity Reaction Status Date / Time hydromorphone [From Dilaudid] Allergy Hives Verified 12/20/23 11:14 Sulfa (Sulfonamide Allergy Diarrhea Verified 12/20/23 11:14 Antibiotics) Family History Father Heart disease Hypertension Mother Breast cancer, Onset Age: 70 Sister Multiple sclerosis, Onset Age: 35 Surgical History Status post hysteroscopy (~05/23/23) Status post laparoscopy [place] teeth extracted Social History adopted: No household members: spouse current occupational status: employed 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 current occupational exposures/hazards: No pets and animals: Yes (Avoid litterbox) pets and animals: cat(s), bird(s), fish, turtle(s) and other details: [place] history of recent travel: No sexually active: Yes Smoking Status: Never smoker alcohol intake: current alcohol intake frequency: holidays/special occasions only details: Not while well-balanced diet: daily or most days caffeine: No eating out: 1-3 times/week during the past year weight has: remained stable what type of physical activity do you participate in: none isrrael/latter-day: Buddhist seatbelt use: always do you feel safe at home: Yes additional social history: - Bienvenido HIGUERA ROS ED Constitutional Constitutional ED: Denies chills, fever(s) or sweats Eyes Eyes: Denies blurry vision or change in vision ENT ENT ED: Denies ear pain or sore throat Cardiovascular Cardiovascular: Denies chest pain, palpitations or racing heartbeat Respiratory/Chest Respiratory/Chest: Denies cough, dyspnea or sputum Gastrointestinal Gastrointestinal: Reports abdominal pain; Denies constipation, diarrhea, nausea or vomiting Genitourinary Genitourinary ED: Denies dysuria, hematuria or urinary frequency Musculoskeletal Musculoskeletal: Denies arthralgias, myalgias or neck pain Integumentary Denies abscess, Abrasions or rash Neurologic Neurologic: Denies headache(s), paresthesias or weakness Psychiatric Psychiatric: Denies anxiety, depression, suicidal ideation or suicidal thoughts Endocrine Endocrinology: Denies polydipsia or polyuria EXAM Physical Exam Const Vital Signs: 12/20/23 11:14 12/20/23 11:37 12/20/23 13:13 Temperature 97.8 F Temperature Source Temporal Pulse Rate 97 95 Respiratory Rate 18 16 Respiratory Effort Short of Breath Respiratory Pattern Normal Blood Pressure 104/65 102/79 Blood Pressure Mean 78 86 Pulse Ox 98 97 Oxygen Delivery Method Room Air Room Air Positive well nourished General Appearance ED: NAD HEENT Reports moist mucous membranes trauma Eyes PERRL and EOMs intact bilaterally Chest Wall inspection of chest normal Resp normal respiratory effort GI GI Narrative: Tenderness to palpation in the midline of the pelvis. No rebound or guarding. Back/Spine no CVA tenderness Extremity normal to inspection Neuro oriented x3 Sensorium / Orientation: alert Psych mental status grossly normal Skin no rashes or lesions noted MDM MDM MDM Narrative Medical decision making narrative: Patient presenting with pelvic pain. She has had a confirmed intrauterine . The pain started last night and then went away after she took Tylenol and is now come back again. No vaginal bleeding or spotting. No urinary symptoms. CBC shows normal white blood cell count of 10.1, hemoglobin 12.4, platelets 244. Renal function electrolytes are normal. hCG 55,393. Urinalysis negative for infection. Transvaginal ultrasound shows single live intrauterine gestation at 13 weeks with 2 uterine fibroids. heart tones are normal. Impression: 1. Abdominal pain in Lab Data Attestation: I reviewed the patient's lab results. Labs: Laboratory Results - last 24 hr 12/20/23 12/20/23 12:12 12:15 WBC 10.1 RBC 4.53 Hgb 12.4 Hct 39.3 MCV 86.8 MCH 27.4 MCHC 31.6 L RDW Std Deviation 44.8 H RDW Coeff of Maynor 14.2 Plt Count 244 MPV 8.7 Immature Gran % (Auto) 0.300 Neut % (Auto) 77.0 H Lymph % (Auto) 16.5 L [place] % (Auto) 5.5 Eos % (Auto) 0.4 Baso % (Auto) 0.3 Absolute Neuts (auto) 7.8 H Absolute Lymphs (auto) 1.67 Nucleated RBC % 0 Sodium 138 Potassium 3.8 Chloride 106 Carbon Dioxide 27.0 Anion Gap 5 BUN 10 Creatinine 0.59 Estim Creat Clear Calc 137.57 Est GFR (MDRD) Af Amer 149 Est GFR (MDRD) Non-Af 124 BUN/Creatinine Ratio 17.0 Glucose 77 Calcium 10.2 H HCG, Quant 77662 H Urine Color Yellow Urine Clarity Cloudy Urine pH 7.0 Ur Specific [place] 1.015 Urine Protein Negative Urine Glucose (UA) Normal Urine Ketones Negative Urine Occult Blood 10 H Urine Nitrite Negative Urine Bilirubin Negative Urine Urobilinogen Normal Ur Leukocyte Esterase 25 H Urine RBC 0 SEEN Urine WBC 0-5 SEEN Ur Squamous Epith Cells 0 SEEN Amorphous Sediment 3+ Urine Bacteria 0 SEEN Urine Mucus 0 SEEN Radiography Diagnostic Testing: Clinical Impression(s) from Imaging Studies Obstetrics Ultrasound 12/20/23 11:50 IMPRESSION: Single live intrauterine gestation with a mean gestational age of 13 weeks and 5 days. 2 uterine fibroids. The larger measures 2.1 cm x 2.7 x 1.5 cm. Electronically Signed: Vernon Quinonez MD at 14:21 EDT , Discharge Plan Triage Chief Complaint: ED Provider: Morgan Joy Dx/Rx/DC Orders Instructions: ED Abdominal Pain, Early Prescriptions: No Action sertraline [Zoloft] 50 mg tablet 50 mg PO DAILY PNV no.[id number] 400 mcg-35 mg- 25 mg-5 mg tablet,chewable PO Slow Fe 137 mg (45 mg iron) tablet extended release PO Probiotic 10 billion cell capsule 100 mmu cells PO DAILY Primary Care Provider: Lindsey Farrell Referrals: Lindsey Farrell DO [Primary Care Provider] - Disposition Disposition: Home, Self Care
[2023-12-20] MEDS: 0.9% Normal Saline (1000mL) 1,000 ML 1000 ML IV (12:16)
[2023-12-20] MEDS: Acetaminophen 500 MG Tablet 1000 MG PO (12:16)
[2023-12-20 12:23] LABS: Bacteria 0 SEEN /hpf (None Seen); Mucous, Urine 0 SEEN /hpf (<or=2+); Red Blood Cells-Urine 0 SEEN /hpf (0-5); Squamous Epithelial Cells - UA 0 SEEN /hpf (5-10)
[2023-12-20 12:30] LABS: Absolute Lymphocyte Count 1.67 X10^3/uL (0.83-4.51); Absolute Neutrophil Count 7.8 X10^3/uL (2.0-7.7); Basophil# 0.03 X10^3/uL; Basophil% 0.3 % (0-1); Eosinophil# 0.04 X10^3/uL; Eosinophils% 0.4 % (0-5); Hematocrit 39.3 % (37-47); Hemoglobin 12.4 g/dL (12.0-15.0); Lymphocyte # 1.67 X10^3/ul (0.83-4.51); Lymphocyte % 16.5 % (19-41); Mean Corp Hgb Conc 31.6 g/dL (32-36); Mean Corpuscular Hgb 27.4 pg (27.0-32.0); Mean Corpuscular Volume 86.8 fL (81-99); Mean Platelet Vol. 8.7 fl (6.2-12.0); Monocyte# 0.56 X10^3/uL; Monocyte% 5.5 % (0-10); NRBC Flagged by Analyzer 0 % (0-5); Neutrophil # 7.78 X10^3/uL (2.7-7.7); Platelet Count 244 K/mm3 (150-450); RBC Distribution Width CV 14.2 % (11.6-14.6); RBC Distribution Width SD 44.8 fl (35.1-43.9); Red Blood Count 4.53 M/mm3 (4.2-5.4); White Blood Count 10.1 K/mm3 (4.4-11.0)
[2023-12-20 12:36] LABS: Anion Gap 5 (5-15); BUN 10 mg/dL (7-18); Calcium,Total 10.2 mg/dL (8.5-10.1); Chloride 106 mmol/L (98-107); Creatinine, Serum 0.59 mg/dL (0.55-1.02); EST Glomerular Filtration Rate 124 mL/min (>60); Est Glom Filt Rate - Afr Amer 149 mL/min (>60); Estimated Creatinine Clearance 137.57 ml/min; Glucose 77 mg/dL (74-106); Potassium 3.8 mmol/L (3.5-5.1); Sodium Level 138 mmol/L (136-145)
[2023-12-20 12:44] LABS: Color, Urine Yellow (Yellow); Glucose, Dipstick Normal (Normal); Ketone-Dipstick Negative (Negative); Leukocyte Esterase-Dipstick 25 /ul (Negative); Nitrite-Dipstick Negative (Negative); Occult Blood-Urine 10 /ul (Negative); Protein-Dipstick Negative (Negative); Specific Gravity, Urine 1.015 (1.002-1.030); Urine Bilirubin Dipstick Negative (Negative); Urine Clarity Cloudy (Clear); Urine Urobilinogen Normal (Normal)
[2023-12-20 13:05] LABS: hCG Titer Quant., Serum 55393 mIU/mL (1-3)
[2023-12-20 13:05] LABS: Amorphous Sediment 3+; White Blood Cells 0-5 SEEN /hpf (0-5)
[2023-12-20 13:13] VITALS: BP 102/79; PULSE 95; RESP 16; O2SAT 97
[2023-12-20 14:48] VITALS: BP 102/79; PULSE 87; RESP 16; TEMP 36.8; O2SAT 97
== END 2023-12-20 14:48 | disposition home or self-care (01) ==
PROVIDERS: Emergency Provider Student in an Organized Health Care Education/Training Program; PCP Family Medicine; Visit Provider Student in an Organized Health Care Education/Training Program
DX: O26.891 Other specified pregnancy related conditions, first trimester (principal); D25.9 Leiomyoma of uterus, unspecified; Z3A.13 13 weeks gestation of pregnancy; Z86.711 Personal history of pulmonary embolism; Z87.440 Personal history of urinary (tract) infections; R10.9 Unspecified abdominal pain; O99.891 Other specified diseases and conditions complicating pregnancy
CPT/HCPCS: 76801; 80048; 81001; 84702; 85025; 99284; A4216

== ENCOUNTER → 2023-12-26 | Outpatient (CLI) | payer BC, SELFPAY | END | disposition home or self-care (01) | PROVIDERS: PCP Family Medicine; Referring Provider Advanced Practice Midwife; Visit Provider Advanced Practice Midwife | DX: O26.899 Other specified pregnancy related conditions, unspecified trimester (principal); R10.2 Pelvic and perineal pain; Z3A.00 Weeks of gestation of pregnancy not specified | CPT/HCPCS: 87077; 87086; 87088; 87186 ==

== ENCOUNTER 2024-01-01 20:41 | Emergency (ER) | payer BC, SELFPAY ==
[2024-01-01 20:43] VITALS: PULSE 86; RESP 18; TEMP 36.7; O2SAT 95; BMI 33.1
[2024-01-01 21:11] LABS: Bacteria 0 SEEN /hpf (None Seen); Mucous, Urine 0 SEEN /hpf (<or=2+); Red Blood Cells-Urine 0 SEEN /hpf (0-5); Squamous Epithelial Cells - UA 0 SEEN /hpf (5-10); White Blood Cells 0 SEEN /hpf (0-5)
[2024-01-01 21:17] LABS: Color, Urine Yellow (Yellow); Glucose, Dipstick Normal (Normal); Ketone-Dipstick Negative (Negative); Leukocyte Esterase-Dipstick Negative /ul (Negative); Nitrite-Dipstick Negative (Negative); Occult Blood-Urine Negative /ul (Negative); Protein-Dipstick Negative (Negative); Urine Bilirubin Dipstick Negative (Negative); Urine Clarity Clear (Clear); Urine Urobilinogen Normal (Normal)
[2024-01-01 21:20] LABS: Internal QC Validated? YES +Cl - CLEAR BKGD
[2024-01-01 21:21] LABS: Pregnancy, Urine Positive Negative
[2024-01-01 21:46] VITALS: BP 120/75; PULSE 77; RESP 18; TEMP 36.6; O2SAT 96
[2024-01-01 22:00] VITALS: BP 118/70; PULSE 80; RESP 16; TEMP 36.9; O2SAT 97
--- NOTE | 2024-01-01 22:05 | EDS_ITS ---
HPI History of Present Illness Chief Complaint: Complaint Informant: patient and spouse/S.O. Narrative Narrative: 33-year-old female about 15 weeks G2, P0 had 1 miscarriage states has been having pelvic pain for weeks. Now for the past week or so she has been having urinary frequency, and she feels like it is so bad like every 15 minutes and some days, that she feels like she may not be emptying her bladder all of the way. She is having some low back discomfort along with the pelvic pain. No hematuria, no vaginal discharge or bleeding, she has had an ultrasound showing an intrauterine , and then today she developed a low-grade fever at 99. When she called about the fever she was advised to go to the hospital emergently. She denies any other symptoms of an obvious infection such as vomiting or diarrhea, cough, shortness of breath, congestion, runny nose, earache, sore throat. [facility] Medical History Seasonal allergies Viral encephalitis Wears contact lenses Wears glasses Depression Anxiety Back pain Injury of back Blackout History of IBS Gastric reflux Endocervical polyp Recurrent UTI Dysmenorrhea Infertility Hx pulmonary embolism Irregular menses Anxiety and depression Home Medications ?Medication ?Instructions ?Recorded ?Last Taken ?Type sertraline 50 mg tablet (Zoloft) 50 mg PO DAILY 04/05/23 Unknown History Lactobacillus acidophilus 10 100 mmu cells PO DAILY 05/10/23 Unknown History billion cell capsule (Probiotic) PNV 153-FA 400 mcg-om3 35 mg-dha tab PO 11/21/23 Unknown History 25 mg-epa 5 mg-fish oil chew tablet ferrous sulfate 137 mg (45 mg mg PO 11/21/23 Unknown History iron) tablet,extended release (Slow Fe) Allergy/AdvReac Type Severity Reaction Status Date / Time hydromorphone (From Dilaudid) Allergy Hives Verified 01/01/24 20:43 Sulfa (Sulfonamide Allergy Diarrhea Verified 01/01/24 20:43 Antibiotics) Family History Father Heart disease Hypertension Mother Breast cancer, Onset Age: 70 Sister Multiple sclerosis, Onset Age: 35 Surgical History [place] teeth extracted Status post hysteroscopy (~10/10/23) Status post laparoscopy Social History adopted: No household members: spouse current occupational status: employed 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 current occupational exposures/hazards: No pets and animals: Yes (Avoid litterbox) pets and animals: cat(s), bird(s), fish, turtle(s) and other details: geko history of recent travel: No sexually active: Yes Smoking Status: Never smoker alcohol intake: current alcohol intake frequency: holidays/special occasions only details: Not while well-balanced diet: daily or most days caffeine: No eating out: 1-3 times/week during the past year weight has: remained stable what type of physical activity do you participate in: none isrrael/cheondoism: Confucianist seatbelt use: always do you feel safe at home: Yes additional social history: - Bienvenido HIGUERA KALEN ED Constitutional Constitutional ED: Reports fever(s) and subjective; Denies chills Eyes Eyes: Denies change in vision or diplopia ENT ENT ED: Denies rhinorrhea or sore throat Cardiovascular Cardiovascular: Denies chest pain or palpitations Respiratory/Chest Respiratory/Chest: Denies cough or dyspnea Gastrointestinal Gastrointestinal: Reports abdominal pain; Denies diarrhea, nausea or vomiting Genitourinary Genitourinary ED: Reports urinary frequency; Denies dysuria or hematuria Musculoskeletal Musculoskeletal: Reports back pain; Denies neck pain Integumentary Denies abscess or rash Neurologic Neurologic: Denies headache(s), paresthesias or weakness Psychiatric Psychiatric: Denies suicidal ideation or suicidal thoughts EXAM Physical Exam Const Vital Signs: 01/01/24 20:43 01/01/24 21:46 01/01/24 21:46 Temperature 98.1 F 98 F Temperature Source Temporal Temporal Pulse Rate 86 77 Respiratory Rate 18 18 Respiratory Pattern Normal Blood Pressure 120/75 Blood Pressure Mean 90 Pulse Ox 95 96 Oxygen Delivery Method Room Air Room Air Positive well nourished and well developed General Appearance ED: well developed and NAD HEENT Reports moist mucous membranes normocephalic and atraumatic Eyes PERRL and EOMs intact bilaterally Neck full ROM and supple Resp normal respiratory effort and clear to auscultation bilaterally Cardio regular rate, regular rhythm and no murmurs GI non-distended GI Narrative: Mild diffuse pelvic tenderness. Right is no more tender than the left. This includes the suprapubic area. There is no guarding or rebound. McBurney's point is nontender. Upper abdomen is nontender. Auscultation: normoactive bowel sounds Palpation: soft Back/Spine no CVA tenderness General Back: other FROM Extremity normal to inspection General Extremety ED: Negative for edema, pulses abnormal or tenderness General Extremity: Negative for edema or pulses abnormal Neuro oriented x3, CN's II-XII intact bilaterally and no sensory deficits noted Sensorium / Orientation: awake and alert Motor Exam: strength 5/5 throughout Skin no rashes or lesions noted and no wounds MDM MDM MDM Narrative Medical decision making narrative: Urinalysis is completely normal. She just had a urinalysis and a urine culture that was done 4 days ago that was negative so I do not think a repeat culture is going to be helpful here. They are in agreement. test was done because it was ordered by nursing prior to my evaluation of the patient. I did bedside ultrasound showed a single live intrauterine with heart tones 151, at this time reassuring she does not have a fever or any abnormal vital signs. There is no reason to do any other emergent testing. Reassured and advised to follow-up with her OB doctor. This may be all mass effect on the bladder from the uterus. While doing the ultrasound I did do a postvoid residual 15 min after the patient urinated (and needed to urinate again), showing about 135 mL of urine, inconsistent w/ urinary retention. Reassured, likely having uterine ligament pelvic pain and bladder symptoms due to compression of the bladder due to the growing uterus. Lab Data Attestation: I reviewed the patient's lab results. Labs: Laboratory Results - last 24 hr 01/01/24 21:06 Urine Color Yellow Urine Clarity Clear Urine pH 6.0 Ur Specific [place] 1.010 Urine Protein Negative Urine Glucose (UA) Normal Urine Ketones Negative Urine Occult Blood Negative Urine Nitrite Negative Urine Bilirubin Negative Urine Urobilinogen Normal Ur Leukocyte Esterase Negative Urine RBC 0 SEEN Urine WBC 0 SEEN Ur Squamous Epith Cells 0 SEEN Urine Bacteria 0 SEEN Urine Mucus 0 SEEN Urine Test Positive H Discharge Plan Triage Chief Complaint: Complaint Other Complaint: Fever ED Provider: Finn Chino Dx/Rx/DC Orders Clinical Impression: Pelvic pain affecting , antepartum, Increased urinary frequency during Instructions: ED Pelvic Pain Preg UKO 2 or 3 Tri Prescriptions: No Action sertraline [Zoloft] 50 mg tablet 50 mg PO DAILY PNV no.[id number] 400 mcg-35 mg- 25 mg-5 mg tablet,chewable PO Slow Fe 137 mg (45 mg iron) tablet extended release PO Probiotic 10 billion cell capsule 100 mmu cells PO DAILY Primary Care Provider: Lindsey Farrell Referrals: Lindsey Farrell, DO [Primary Care Provider] - Doctor,Your [Non-Staff] - 3-5 Days (Your OB) Print Language: [place] Islander Disposition Disposition: Home, Self Care
[2024-01-01 23:10] VITALS: BP 107/70; PULSE 75; RESP 16; TEMP 36.6; O2SAT 98
== END 2024-01-01 23:12 | disposition home or self-care (01) ==
PROVIDERS: Emergency Provider Emergency Medicine; PCP Family Medicine; Visit Provider Emergency Medicine
DX: O99.891 Other specified diseases and conditions complicating pregnancy (principal); R10.2 Pelvic and perineal pain; R35.0 Frequency of micturition; Z86.711 Personal history of pulmonary embolism; Z3A.15 15 weeks gestation of pregnancy
CPT/HCPCS: 81001; 81025; 99283

== ENCOUNTER 2024-03-07 16:30 | Outpatient (RCR) | payer BC, SELFPAY ==
--- NOTE | 2024-02-20 12:28 | HP.PTEVAL_ITS ---
Patient's Visit Information Visit Information Visit Information: SHIRA LOPEZ is a 33 year old F referred to Physical Therapy by Dr. Maddie Medina DO with a diagnosis of Pain in pubic symphysis during . Date of Evaluation: 02/20/24 Physical Therapist: JODI Holt Visit Plan Frequency: 2x /Week Duration: 3 Months Plan: 2X/ week for 8-12 weeks for neutral spine core stability, hip abd/add strength, glut strength with HEP. If pt is unable to tolerated land based therapy then maybe moving her to AT for core stability and hip strength will be the plan HEP: supine PT and Spine PT with pillow adduction to tolerance Subjective Subjective: The pain started around 14 weeks. She is 22 weeks with her first . She has scoliosis so her hips are not quite even. When she tries to walk around she feels that one leg does not feel as long as the other, She has pain under the belly and pain in vaginal area and buttock and pain in back. The pain is worse on the L side and same with her back. It is worse with stairs, bend over, lift over 10#. It does not hurt to stand on one leg. She can still stretch her HS without pain. But rolling over in bed her back will crack. She will have pain in the pubic area in the front. Everything looks fine with the baby. She has just been taking Tylenol and wants to do PT. She ended up leaving her job because she can not do her job (lifting at her job and standing a long time). Pain back pain: Pain Intensity (Out of 10): 2 L sided pelvic pain: Pain Intensity (Out of 10): 3 Pain Intensity Range: 4 Comment: with walking Objective Objective: Gait: Walks more on her toes with decrease stride length and decreas e hip ext. no trunk rotation and guarded LE MMT: hip flex 3+/5 B knee flex 4-/5 B knee ext 4-/5 B Supine hip abd 3+/5 B Supine hip add 3+/5 B Bridge: 1/2 normal ROM with some pain SLR no pain but tight HS SKC increase under belly pain Heel and toe raises: pt is able to heel and toe raise without issue Pt did a 3 X 10 Pelvic Tilts and then 2 X 10 Pelvic tilt with supine ball hip adductor squeeze and she started to get increase lower abdominal pain. We decided to do as many as she can (like 2 sets) but not to go into pain Balance/Special Test Scores Lower Extremity Functional Score: 16 Goals Goal 1:: I HEP Goal Time Frame: 8-12 Weeks Goal 2:: Be able to walk short distances (around house and grocery) without pain Goal Time Frame: 8-12 Weeks Goal 3:: Increase B hip abd and hip add strength by 1/2 muscle grade to support pelvis (at eval B add/abd 3+//5) Rehabilitation Potential Rehabilitation Potential: Good Anticipated Interventions Patient/Client Instruction: Educate patient on: Condition and Plan of Care For the Purpose of:: To decrease pain, To increase ROM, To improve nutrient delivery to tissue, To improve muscle performance and motor function, To improve ability to perform ADL's, To increase tolerance to activity/condition/position, To improve performance and independence with ADL's, To decrease level of supervision to perform tasks, To improve ability of physical actions for home/community/work/leisure, To improve gait and locomotor functions and To improve health of tissue Therapeutic Exercise to Include: Strength training, Postural training, Gait and locomotor training, Neuromotor development, In an aquatic setting, Active ROM, Dynamic Lumbar Stabilization and Scapular Strength/Stabilization For the Purpose of:: To decrease pain, To improve nutrient delivery to tissue, To improve muscle performance and motor function, To improve ability to perform ADL's, To increase tolerance to activity/condition/position, To improve performance and independence with ADL's, To decrease level of supervision to perform tasks, To improve ability of physical actions for home/community/work/leisure, To improve gait and locomotor functions and To improve health of tissue Functional Training to Include: Gait training For the Purpose of:: To improve gait and locomotor functions Text: Thank you for the opportunity to evaluate your patient. For Medicare and Medicare HMO plans, please review the plan of care and approve it. It will need to be FAXED BACK to us at [phone] for Medicare purposes. For Medicare only, by signing this I certify the plan of care. Please let me know if there are questions or concerns regarding this plan of care. Physician Signature: Date:
--- NOTE | 2024-03-27 15:01 | HP.PT.NRP(2) ---
Patient Information Patient Information: SHIRA LOPEZ was seen in my office for initial evaluation on . The following Plan of Care was established for this patient: Last Seen Last Seen: This patient was last seen in our office . Pertinent comments regarding their Physical therapy will appear below: At this point I will be discontinuing this patient from physical therapy. I would be happy to see this patient again in the future if found appropriate by the physician. Thank you! Lisa Rasmussen, MPT
--- NOTE | 2024-06-18 07:22 | HP.PT.NRP ---
Patient Information Patient Information: SHIRA LOPEZ was seen in my office for initial evaluation on 02/20/24. The following Plan of Care was established for this patient: POC Established Initial Frequency: 2x /Week Initial Duration: 3 Months Anticipated Interventions Patient/Client Instruction: Educate patient on: Condition and Plan of Care For the Purpose of:: To decrease pain, To increase ROM, To improve nutrient delivery to tissue, To improve muscle performance and motor function, To improve ability to perform ADL's, To increase tolerance to activity/condition/position, To improve performance and independence with ADL's, To decrease level of supervision to perform tasks, To improve ability of physical actions for home/community/work/leisure, To improve gait and locomotor functions and To improve health of tissue Therapeutic Exercise to Include: Strength training, Postural training, Gait and locomotor training, Neuromotor development, In an aquatic setting, Active ROM, Dynamic Lumbar Stabilization and Scapular Strength/Stabilization For the Purpose of:: To decrease pain, To improve nutrient delivery to tissue, To improve muscle performance and motor function, To improve ability to perform ADL's, To increase tolerance to activity/condition/position, To improve performance and independence with ADL's, To decrease level of supervision to perform tasks, To improve ability of physical actions for home/community/work/leisure, To improve gait and locomotor functions and To improve health of tissue Functional Training to Include: Gait training For the Purpose of:: To improve gait and locomotor functions Last Seen Last Seen: This patient was last seen in our office 03/12/24. Pertinent comments regarding their Physical therapy will appear below: Pt wants to stop PT for now. It is too much for her. DC PT At this point I will be discontinuing this patient from physical therapy. I would be happy to see this patient again in the future if found appropriate by the physician. Thank you! Lisa Rasmussen, MPT Balance/Gait/Functional tests Balance/Special Test Scores Lower Extremity Functional Score: 16
== END 2024-03-07 19:00 | disposition home or self-care (01) ==
LOC: PT 16:30
PROVIDERS: PCP Family Medicine; Referring Provider Obstetrics & Gynecology; Visit Provider Obstetrics & Gynecology
DX: O99.891 Other specified diseases and conditions complicating pregnancy (principal); M79.18 Myalgia, other site
CPT/HCPCS: 97110; 97113; 97162

== ENCOUNTER 2024-03-15 00:50 | Outpatient (CLI) | payer BC, SELFPAY ==
[2024-03-15 01:01] VITALS: BMI 31.4
[2024-03-15 01:17] VITALS: PULSE 87; O2SAT 97
[2024-03-15 01:20] VITALS: BP 134/74; PULSE 87; RESP 16; TEMP 37
[2024-03-15 01:35] LABS: Mucous, Urine 0 SEEN /hpf (<or=2+); Red Blood Cells-Urine 0 SEEN /hpf (0-5); White Blood Cells 0 SEEN /hpf (0-5)
[2024-03-15 01:38] LABS: Color, Urine Straw (Yellow); Glucose, Dipstick Normal (Normal); Ketone-Dipstick Negative (Negative); Leukocyte Esterase-Dipstick Negative /ul (Negative); Nitrite-Dipstick Negative (Negative); Occult Blood-Urine Negative /ul (Negative); Protein-Dipstick Negative (Negative); Urine Bilirubin Dipstick Negative (Negative); Urine Clarity Sl. Cloudy (Clear); Urine Urobilinogen Normal (Normal); Urine pH 6.5 (5.0 - 8.0)
[2024-03-15 01:45] LABS: Bacteria 1+ /hpf (None Seen); Squamous Epithelial Cells - UA 5-10 SEEN /hpf (5-10)
[2024-03-15] MEDS: cycloBENZAPRine HCl 10 MG Tablet PO (01:58)
[2024-03-15] MEDS: 0.9% Saline Lock 10 ML Syringe IV (01:58)
[2024-03-15 02:15] LABS: Absolute Lymphocyte Count 2.33 X10^3/uL (0.83-4.51); Absolute Neutrophil Count 6.1 X10^3/uL (2.0-7.7); Basophil# 0.03 X10^3/uL; Basophil% 0.3 % (0-1); Eosinophil# 0.05 X10^3/uL; Eosinophils% 0.5 % (0-5); Hematocrit 34.6 % (37-47); Hemoglobin 10.9 g/dL (12.0-15.0); Lymphocyte # 2.33 X10^3/ul (0.83-4.51); Mean Corp Hgb Conc 31.5 g/dL (32-36); Mean Corpuscular Hgb 28.1 pg (27.0-32.0); Mean Corpuscular Volume 89.2 fL (81-99); Mean Platelet Vol. 8.3 fl (6.2-12.0); Monocyte# 0.71 X10^3/uL; Monocyte% 7.6 % (0-10); NRBC Flagged by Analyzer 0 % (0-5); Neutrophil # 6.11 X10^3/uL (2.7-7.7); Neutrophil % 65.7 % (47-70); Platelet Count 193 K/mm3 (150-450); RBC Distribution Width CV 13.7 % (11.6-14.6); RBC Distribution Width SD 44.8 fl (35.1-43.9); Red Blood Count 3.88 M/mm3 (4.2-5.4); White Blood Count 9.3 K/mm3 (4.4-11.0)
[2024-03-15 02:22] VITALS: BP 123/61; PULSE 72
[2024-03-15 02:42] VITALS: PULSE 73; O2SAT 98
[2024-03-15 02:42] LABS: ALB/GLOB Ratio 0.7 RATIO (0.9-2.4); AST(SGOT) 15 U/L (15-37); Alanine Aminotransfer ALT/SGPT 14 U/L (13-56); Albumin, Serum 2.9 g/dL (3.2-5.0); Alkaline Phosphatase 68 U/L (45-117); Anion Gap 6 (5-15); BUN 9 mg/dL (7-18); BUN/Creat Ratio 16.2 RATIO (10-20); Chloride 104 mmol/L (98-107); Creatinine, Serum 0.56 mg/dL (0.55-1.02); EST Glomerular Filtration Rate 132 mL/min (>60); Est Glom Filt Rate - Afr Amer 160 mL/min (>60); Estimated Creatinine Clearance 146.05 ml/min; Globulin 4.1 g/dL (2.2-4.2); Glucose 86 mg/dL (74-106); Potassium 3.8 mmol/L (3.5-5.1); Sodium Level 136 mmol/L (136-145)
[2024-03-15 02:45] LABS: Fibrinogen 518 mg/dl (203-444)
--- NOTE | 2024-03-15 06:00 | US_ITS ---
STUDY: SECOND AND THIRD TRIMESTER OBSTETRICAL ULTRASOUND - LIMITED REASON FOR EXAM: Female, 33 years old Abdomen pain- well being LMP: September 15, 2023 PRIOR ULTRASOUND: None. TECHNIQUE: Transabdominal TECHNICAL QUALITY: Adequate. FINDINGS: There is a single intrauterine fetus. The fetus is in a breech presentation. There is demonstrated cardiac activity with a heart rate of 157 bpm. There is a normal amniotic fluid volume. The largest amniotic fluid pocket measures 4.8 cm. The placenta is posterior There are Grade 0 placental changes. BIOMETRY: BPD: 6.5 cm: 26 weeks, 1 days HC: 23.9 cm: 26 weeks, 0 days AC: 21.7 cm: 26 weeks, 1 days FL: 4.8 cm: 26 weeks, 1 days Age by LMP: 26 weeks, 0 days. KEVIN by LMP: June 21, 2024. age by current US: 25 weeks, 6 days. KEVIN by current US: June 22, 2024. Estimated weight: 908 grams, +/- 136 grams. US/OB Limited With Biometrics IMPRESSION: Single intrauterine gestation 25 weeks 6 days with estimated due date June 22, 2024. Estimated weight 908 g. Electronically Signed: Finn Del Real MD at 12:02 EDT ,
--- NOTE | 2024-03-15 07:15 | OB.TRI.HP_ITS ---
HPI - General HPI Narrative SHIRA LOPEZ, is a 33 F who presents with abdominal pain no vaginal bleeding or loss of fluid admits good movement. Maternal Data Information KEVIN Calculator Estimated Delivery Date Method Current WG Current Estimate 06/21/24 Ultrasound #1 26w 5d Other Estimates 06/15/24 LMP (Certain) 27w 4d 06/18/24 Ultrasound #2 27w 1d PFSH PFSH Medical History Seasonal allergies Viral encephalitis Wears contact lenses Wears glasses Depression Anxiety Back pain Injury of back Blackout History of IBS Gastric reflux Endocervical polyp Recurrent UTI Dysmenorrhea Infertility Hx pulmonary embolism Irregular menses Anxiety and depression Home Medications ?Medication ?Instructions ?Recorded ?Last Taken ?Type Lactobacillus acidophilus 10 100 mmu cells PO DAILY 05/10/23 Unknown History billion cell capsule (Probiotic) PNV 153-FA 400 mcg-om3 35 mg-dha tab PO 11/21/23 Unknown History 25 mg-epa 5 mg-fish oil chew tablet cyclobenzaprine 5 mg tablet 5 mg PO TID PRN muscle spasm #30 02/08/24 Unknown Rx tabs sertraline 50 mg tablet (Zoloft) 75 mg PO DAILY 02/23/24 Unknown History Allergy/AdvReac Type Severity Reaction Status Date / Time hydromorphone (From Dilaudid) Allergy Hives Verified 03/19/24 15:32 Sulfa (Sulfonamide Allergy Diarrhea Verified 03/19/24 15:32 Antibiotics) Family History Father Heart disease Hypertension Mother Breast cancer, Onset Age: 70 Sister Multiple sclerosis, Onset Age: 35 Surgical History [place] teeth extracted Status post hysteroscopy (~05/23/23) Status post laparoscopy Social History adopted: No household members: spouse current occupational status: employed 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 current occupational exposures/hazards: No pets and animals: Yes (Avoid litterbox) pets and animals: cat(s), bird(s), fish, turtle(s) and other details: geko history of recent travel: No sexually active: Yes Smoking Status: Never smoker alcohol intake: current alcohol intake frequency: holidays/special occasions only details: Not while well-balanced diet: daily or most days caffeine: No eating out: 1-3 times/week during the past year weight has: remained stable what type of physical activity do you participate in: none isrrael/mandaen: Anglican seatbelt use: always do you feel safe at home: Yes additional social history: - Bienvenido History 2 Elective abortions Hx Para 0 Spontaneous abortions 1 Hx # Term Pregnancies Ectopic pregnancies Hx # Pregnancies Multiple births # of living children 0 Past Pregnancies Del. Date Name GA/Weeks Outcome Route Bth Weight Gen Labor Lgth Anesthesia Del Locatn Provider FOB 08/05/23 5 spontaneous Visit Details Expected Delivery Route/Plan Labor Preferences- CB/BF classes: scheduled labor support person: Bienvenido labor intervention preferences: [] pain management options preferred: undecided cut cord/dad catch: maybe : yes PP control planned: discussed discussed possible routes of delivery and associated risks: [] special requests: [] Plans Covid status: [] Flu vaccine: [] Tdap vaccine: [] Rhogam: na LARC form signed: yes Problem list reviewed and updated with the most current plan of care details and appropriate orders placed. Relevant counseling for the gestational age provided. Continue routine care and follow up unless otherwise noted in visit notes/problem list details OB Flowsheet Initial Weight: Not Recorded Date -?-?-?-?-?-?-?-?-?-?-?-?- EGA Weight BP Urine Prot -?-?-?-?-?-?-?-?-?-?-?-?- Glucose FHR FuHt Pres Dilation -?-?-?-?-?-?-?-?-?-?-?-?- Effaced St Visit Note 11/27/23 -?-?-?-?-?-?-?-?-?-?-?-?- 10w 3d 189 lb 2 oz 114/76 -?-?-?-?-?-?-?-?-?-?-?-?- 171 -?-?-?-?-?-?-?-?-?-?-?-?- JV- CRL consiste nt with her 6 week ultrasound (within 3 days) desires NIPT testing. has some nausea and wants to try OTC treatment. very small ULISSES seen. pt reassured. has had a light pink discharge present 12/26/23 -?-?-?-?-?-?-?-?-?-?-?-?- 14w 4d 189 lb 8 oz 110/70 Nega tive -?-?-?-?-?-?-?-?-?-?-?-?- Negative 156 -?-?-?-?-?-?-?-?-?-?-?-?- KW- no vb/crampi ng. MFM anatomy US ordered. having suprapubic tenderness. urine culture sent 01/23/24 -?-?-?-?-?-?-?-?-?-?-?-?- 18w 4d 191 lb 6 oz 106/68 Nega tive -?-?-?-?-?-?-?-?-?-?-?-?- Negative 150 -?-?-?-?-?-?-?-?-?-?-?-?- KW-no vb/crampin g. Anatomy US today with MFM-declines AFP 02/23/24 -?-?-?-?-?-?-?-?-?-?-?-?- 23w 0d 185 lb 114/68 Negative -?-?-?-?-?-?-?-?-?-?-?-?- Negative 146 23 -?-?-?-?-?-?-?-?-?-?-?-?- LC- normal anato my. using PT for LC- normal anatomy. using PT for SPD with some improvement. tanya long recommended. good fm. no ctx/lof/vb 03/12/24 -?-?-?-?-?-?-?-?-?-?-?-?- 25w 4d 187 lb 2 oz 107/66 Nega tive -?-?-?-?-?-?-?-?-?-?-?-?- Negative 140 -?-?-?-?-?-?-?-?-?-?-?-?- JV- pt is here f or left side abdominal pain located around the umbilicus. She describes it as sharp at times and feels sensitive when it is touched. on exam it is possible that she has a small periumbilical hernia. She very anxious and worried about the baby. Ordering ultrasound for growth for reassurance. recommend ice and compression. if becomes severe she has instructions to go to ER for emergency CT. 03/19/24 -?-?-?-?-?-?-?-?-?-?-?-?- 26w 4d 181 lb 6 oz 101/66 Nega tive -?-?-?-?-?-?-?-?-?-?-?-?- Negative 145 27 -?-?-?-?-?-?-?-?-?-?-?-?- MH-NO Vb, LOF. G ood FM. RL pain. Discussed and reassured. Larc. 28 wk labs. ROS Constitutional Constitutional: Reports systems reviewed and no addt'l complaints, except as documented and as per HPI ENT HEENT: Reports systems reviewed and no addt'l complaints, except as documented Cardiovascular Cardiovascular: Reports systems reviewed and no addt'l complaints, except as documented Respiratory/Chest Respiratory/Chest: Reports systems reviewed and no addt'l complaints, except as documented Gastrointestinal Gastrointestinal: Reports as per HPI Genitourinary Genitourinary: Reports as per HPI Musculoskeletal Musculoskeletal: Reports systems reviewed and no addt'l complaints, except as documented Integumentary Integumentary: Reports systems reviewed and no addt'l complaints, except as documented Neurologic Neurologic: Reports systems reviewed and no addt'l complaints, except as documented Physical Exam Const alert, oriented x3 and no apparent distress HEENT Head and Scalp: normocephalic and atraumatic Neck full ROM and no lymphadenopathy Chest inspection of chest normal Resp normal respiratory effort GI GI Narrative: gravid, abdomen tender over left lower uterus, AGA Manual OB Exam: dilated 0, effaced and station NST FHR Rate Baby A Baseline: 150 Variability:: Moderate Accelerations:: 15 x 15 Decelerations:: None NST Reactive:: Yes FHR Category:: Category I Uterine Activity:: no regular Assessment & Plan (1) Abdominal pain during in second trimester: COMMENT: nl labs, urine culture sent, ultrasound ordered (2) : QUALIFIERS: Weeks of gestation: 26 weeks Qualified Code(s): Z3A.26 - 26 weeks gestation of COMMENT: LR NIPT Declines carrier and AFP (3) Supervision of high-risk : QUALIFIERS: Trimester: second trimester Qualified Code(s): O09.92 - Supervision of high risk , unspecified, second trimester COMMENT: [id number], KEVIN 06/21/24, Bienvenido (4) BMI 33.0-33.9,adult: PLAN: Plan await ultrasound, may be position, stretching. reviewed patient anxiety. Charges/Coding Multi Select Codes Visit Charges Office Visit/Consults: 24238 OV L3 Est 20min Urinary/Genital Urinary/Genital CPT Codes: 97083-63 non-stress test Interp
[2024-03-15 08:21] VITALS: BP 108/61; PULSE 103; RESP 16; TEMP 37.1; O2SAT 97
[2024-03-15 08:23] VITALS: BP 108/61; PULSE 100; O2SAT 98
== END 2024-03-15 12:30 | disposition home or self-care (01) ==
LOC: WPOUT 00:59 → WP 01:00
PROVIDERS: PCP Family Medicine; Referring Provider Obstetrics & Gynecology; Visit Provider Obstetrics & Gynecology
DX: O99.891 Other specified diseases and conditions complicating pregnancy (principal); R10.9 Unspecified abdominal pain; K21.9 Gastro-esophageal reflux disease without esophagitis; O09.92 Supervision of high risk pregnancy, unspecified, second trimester; O99.612 Diseases of the digestive system complicating pregnancy, second trimester; Z3A.26 26 weeks gestation of pregnancy
CPT/HCPCS: 36415; 59025; 59050; 76816; 80053; 81001; 85025; 85384; 87077; 87086; 87088; 87186; 99221; A4216; G0378

== ENCOUNTER → 2024-03-19 | Outpatient (CLI) | payer BC, SELFPAY ==
[2024-03-19 15:45] LABS: Absolute Lymphocyte Count 1.43 X10^3/uL (0.83-4.51); Absolute Neutrophil Count 6.5 X10^3/uL (2.0-7.7); Basophil# 0.03 X10^3/uL; Basophil% 0.4 % (0-1); Eosinophil# 0.03 X10^3/uL; Eosinophils% 0.4 % (0-5); Hematocrit 33.6 % (37-47); Hemoglobin 10.7 g/dL (12.0-15.0); Lymphocyte # 1.43 X10^3/ul (0.83-4.51); Lymphocyte % 16.8 % (19-41); Mean Corp Hgb Conc 31.8 g/dL (32-36); Mean Corpuscular Hgb 28.1 pg (27.0-32.0); Mean Corpuscular Volume 88.2 fL (81-99); Mean Platelet Vol. 8.5 fl (6.2-12.0); Monocyte# 0.47 X10^3/uL; Monocyte% 5.5 % (0-10); NRBC Flagged by Analyzer 0 % (0-5); Neutrophil # 6.48 X10^3/uL (2.7-7.7); Platelet Count 236 K/mm3 (150-450); RBC Distribution Width CV 13.7 % (11.6-14.6); Red Blood Count 3.81 M/mm3 (4.2-5.4); White Blood Count 8.5 K/mm3 (4.4-11.0)
[2024-03-19 16:05] LABS: Glucose Challenge Gest 1H 50g 153 mg/dL (70-140)
[2024-03-19 16:38] LABS: HIV - WCH Non-Reactive (Nonreactive); Syphilis Antibodies Non-reactive
== END | disposition home or self-care (01) ==
PROVIDERS: PCP Family Medicine; Referring Provider Registered Nurse; Visit Provider Registered Nurse
DX: O09.90 Supervision of high risk pregnancy, unspecified, unspecified trimester (principal); Z3A.23 23 weeks gestation of pregnancy; Z13.1 Encounter for screening for diabetes mellitus
CPT/HCPCS: 36415; 82950; 85025; 86703; 86780

== ENCOUNTER 2024-03-29 08:03 | Emergency (ER) | payer BC, SELFPAY ==
[2024-03-29 08:03] VITALS: BP 103/64; PULSE 78; RESP 16; TEMP 36.1; O2SAT 99; BMI 32.7
--- NOTE | 2024-03-29 08:11 | EKG12_ITS ---
Test Reason : SYNCOPE Blood Pressure : / mmHG Vent. Rate : 083 BPM Atrial Rate : 083 BPM P-R Int : 138 ms QRS Dur : 080 ms QT Int : 396 ms P-R-T Axes : 059 047 045 degrees QTc Int : 465 ms Normal sinus rhythm Normal ECG Confirmed by Loy Garcia ([id number]), index editor BARB HOPE ([id number]) on 04/01/2024 9:15:56 AM Referred By: Confirmed By:Loy Garcia
--- NOTE | 2024-03-29 08:12 | EX.ED.DYSGE1 ---
HPI History of Present Illness Chief Complaint: Syncope Detail of Chief Complaint: Syncope during glucose tolerance test Informant: patient, spouse/S.O. and other (Patient was rapid response) Onset/Context/Timing Onset: Hours Context: Sudden Onset Timing: Intermittent Quality: Symptoms consistent with vasovagal Location: Outpatient lab Current Severity: Mild Maximum Severity: Severe Worsened by: HPI narrative Relieved by: Not applicable Associated Symptoms Associated Symptoms: Nausea, pallor, lightheadedness, vision became romero and blacked out Narrative Narrative: Patient is a 33-year-old G2, P1 Ab1 female who had an abnormal glucose test. She was scheduled for a formal test. Patient fasted for 12 hours. She had blood drawn this morning. She states her blood sugar was 12 units above the acceptable. She drank a glucose beverage. She was scheduled for blood draw at 0800. She states after she drank the glucose beverage she did not feel well. Prior to passing out she felt sick to her stomach, she was pale. No one commented that she was diaphoretic. Her blood pressure was low. Her heart rate was marginally low. She apparently became unresponsive. There is no abnormal motor activity. There is no incontinence of urine or stool. There was no postictal state. Glucose was 154. Patient presents for evaluation. She had similar episode many years ago after donating blood. Prior similar symptoms: Yes Recent Illness/Hospitalization: No PFSH PENDING SALE TO [facility] Medical History Seasonal allergies Viral encephalitis Wears contact lenses Wears glasses Depression Anxiety Back pain Injury of back Blackout History of IBS Gastric reflux Endocervical polyp Recurrent UTI Dysmenorrhea Infertility Hx pulmonary embolism Irregular menses Anxiety and depression Home Medications ?Medication ?Instructions ?Recorded ?Last Taken ?Type Lactobacillus acidophilus 10 100 mmu cells PO DAILY 05/10/23 Unknown History billion cell capsule (Probiotic) PNV 153-FA 400 mcg-om3 35 mg-dha tab PO 11/21/23 Unknown History 25 mg-epa 5 mg-fish oil chew tablet cyclobenzaprine 5 mg tablet 5 mg PO TID PRN muscle spasm #30 02/08/24 Unknown Rx tabs sertraline 50 mg tablet (Zoloft) 75 mg PO DAILY 02/23/24 Unknown History Allergy/AdvReac Type Severity Reaction Status Date / Time hydromorphone (From Dilaudid) Allergy Hives Verified 03/29/24 08:08 Sulfa (Sulfonamide Allergy Diarrhea Verified 03/29/24 08:08 Antibiotics) Family History Father Heart disease Hypertension Mother Breast cancer, Onset Age: 70 Sister Multiple sclerosis, Onset Age: 35 Surgical History [place] teeth extracted Status post hysteroscopy (~05/23/23) Status post laparoscopy Social History adopted: No household members: spouse current occupational status: employed 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 current occupational exposures/hazards: No pets and animals: Yes (Avoid litterbox) pets and animals: cat(s), bird(s), fish, turtle(s) and other details: g[place]o history of recent travel: No sexually active: Yes Smoking Status: Never smoker alcohol intake: current alcohol intake frequency: holidays/special occasions only details: Not while well-balanced diet: daily or most days caffeine: No eating out: 1-3 times/week during the past year weight has: remained stable what type of physical activity do you participate in: none isrrael/taoist: Cheondoism seatbelt use: always do you feel safe at home: Yes additional social history: - Bienvenido HIGUERA ED Constitutional Constitutional ED: Denies chills, fever(s), subjective or sweats Eyes Eyes: Reports change in vision bilateral (Per HPI narrative); Denies blurry vision or diplopia ENT ENT ED: Denies rhinorrhea or sore throat Cardiovascular Cardiovascular: Denies chest pain or palpitations Respiratory/Chest Respiratory/Chest: Denies cough, dyspnea or dyspnea on exertion Gastrointestinal Gastrointestinal: Reports nausea; Denies abdominal pain, diarrhea or vomiting Genitourinary Genitourinary ED: Denies dysuria, hematuria or urinary frequency Musculoskeletal Musculoskeletal: Denies arthralgias or myalgias Integumentary Denies rash Neurologic Neurologic: Denies headache(s) or paresthesias Hematologic/Lymphatic Hematologic/Lymphatic: Reports systems reviewed and no addt'l complaints, except as documented EXAM Physical Exam Const Vital Signs: 03/29/24 08:03 03/29/24 08:12 03/29/24 09:03 Temperature 96.9 F L Temperature Source Temporal Pulse Rate 78 97 Respiratory Rate 16 14 Respiratory Effort Normal Non-Labored Respiratory Pattern Normal Blood Pressure 103/64 102/61 Blood Pressure Mean 77 74 Pulse Ox 99 98 Oxygen Delivery Method Room Air Room Air 03/29/24 10:00 Temperature Temperature Source Pulse Rate 90 Respiratory Rate 16 Respiratory Effort Respiratory Pattern Blood Pressure 101/59 L Blood Pressure Mean 73 Pulse Ox 98 Oxygen Delivery Method Room Air Positive well nourished and well developed General Appearance ED: well developed and NAD; Negative for cyanotic or diaphoretic MDM MDM EKG Initial EKG: Attestation: I personally reviewed and interpreted this EKG as follows: Interpretation: Sinus Rhythm (Rate is 83. EKG is normal. MD interval is 138 ms. Cures duration 80 ms. QT duration are 96 ms. [place] is normal.) Treatment and Re-Evaluation :: Patient has been observed until 1034. There is been no ectopy. Call is placed to her skull splitter. Spoke with Dr. Maddie Moreno. She would like patient to call office. She will set up for Discharge Plan Triage Chief Complaint: Syncope ED Provider: Joey Gupta Dx/Rx/DC Orders Clinical Impression: Vasovagal syncope, History of miscarriage, currently , Abnormal glucose affecting , Third trimester fetus Instructions: ED Fainting, Vagal Reaction Prescriptions: No Action sertraline [Zoloft] 50 mg tablet 75 mg PO DAILY PNV no.[id number] 400 mcg-35 mg- 25 mg-5 mg tablet,chewable PO Probiotic 10 billion cell capsule 100 mmu cells PO DAILY cyclobenzaprine 5 mg tablet 5 mg PO TID PRN (Reason: muscle spasm) Qty: 30 0RF Primary Care Provider: Lindsey Farrell Referrals: Lindsey Farrell DO [Primary Care Provider] - Maddie Medina DO [Med Staff - Active Staff] - As soon as possible Print Language: Slovak Disposition Disposition: Home, Self Care
--- NOTE | 2024-03-29 08:15 | NURSING ---
NO OLD EKGS
[2024-03-29 09:03] VITALS: BP 102/61; PULSE 97; RESP 14; O2SAT 98
[2024-03-29 10:00] VITALS: BP 101/59; PULSE 90; RESP 16; O2SAT 98
[2024-03-29 10:46] VITALS: BP 106/78; PULSE 64; RESP 18; TEMP 36.6; O2SAT 99
== END 2024-03-29 10:47 | disposition home or self-care (01) ==
PROVIDERS: Emergency Provider Emergency Medicine; PCP Family Medicine; Visit Provider Emergency Medicine
DX: O99.891 Other specified diseases and conditions complicating pregnancy (principal); R55 Syncope and collapse; O99.810 Abnormal glucose complicating pregnancy; O99.343 Other mental disorders complicating pregnancy, third trimester; F41.8 Other specified anxiety disorders; Z79.899 Other long term (current) drug therapy; Z3A.00 Weeks of gestation of pregnancy not specified
CPT/HCPCS: 93005; 99283; A4216

== ENCOUNTER → 2024-03-29 | Outpatient (CLI) | payer BC, SELFPAY ==
[2024-03-29 13:15] LABS: Glucose GTT-Gestation. Fasting 84 mg/dL (<105)
[2024-03-29 15:18] LABS: Bedside Glucose 154 mg/dL (74-106)
== END | disposition home or self-care (01) ==
LOC: LAB 06:52
PROVIDERS: PCP Family Medicine; Referring Provider Obstetrics & Gynecology; Visit Provider Obstetrics & Gynecology
DX: O99.810 Abnormal glucose complicating pregnancy (principal); Z3A.00 Weeks of gestation of pregnancy not specified
CPT/HCPCS: 36415; 82951; 82952; 82962

== ENCOUNTER 2024-04-15 02:40 | Outpatient (CLI) | payer BC, SELFPAY ==
[2024-04-15 02:47] VITALS: BMI 31.6
[2024-04-15 03:28] VITALS: BP 103/57; PULSE 73
[2024-04-15 03:57] VITALS: BP 107/59; PULSE 74
--- NOTE | 2024-04-15 04:12 | US_ITS ---
HISTORY: spotting, well being. TECHNIQUE: Transabdominal pelvic ultrasound was performed. 41 images. COMPARISON: 03/15/2024. FINDINGS: INTRAUTERINE GESTATION(s): Single. PRESENTATION: Transverse, head to maternal right. PLACENTA: Posterior, grade 0. No placenta previa. CERVIX: 3.1 cm long. HEART MOTION: 141 bpm. AMNIOTIC FLUID INDEX (APRIL): 13.4 cm. Largest fluid pocket 3.6 cm. BIOPHYSICAL PROFILE (BPP): 6 /8 -- Breathin /2. -- Movement: 2/2. -- Tone: 2/2. --APRIL: 2/2. US/Biophysical Prof W/O Non Stres IMPRESSION: Single living intrauterine currently in transverse presentation with a 6/8 biophysical profile score, 0/2 for breathing. Electronically Signed: Isatu Middleton MD at 10:38 EDT ,
[2024-04-15 04:15] LABS: Color, Urine Yellow (Yellow); Glucose, Dipstick Normal (Normal); Ketone-Dipstick 15 mg/dl (Negative); Leukocyte Esterase-Dipstick Negative /ul (Negative); Nitrite-Dipstick Negative (Negative); Occult Blood-Urine Negative /ul (Negative); Protein-Dipstick Negative (Negative); Specific Gravity, Urine 1.015 (1.002-1.030); Urine Bilirubin Dipstick Negative (Negative); Urine Clarity Clear (Clear); Urine Urobilinogen Normal (Normal)
[2024-04-15 04:34] LABS: Absolute Lymphocyte Count 2.39 X10^3/uL (0.83-4.51); Absolute Neutrophil Count 5.5 X10^3/uL (2.0-7.7); Basophil# 0.04 X10^3/uL; Basophil% 0.5 % (0-1); Eosinophil# 0.06 X10^3/uL; Eosinophils% 0.7 % (0-5); Hematocrit 34.5 % (37-47); Hemoglobin 10.5 g/dL (12.0-15.0); Lymphocyte # 2.39 X10^3/ul (0.83-4.51); Lymphocyte % 27.7 % (19-41); Mean Corp Hgb Conc 30.4 g/dL (32-36); Mean Corpuscular Hgb 27.6 pg (27.0-32.0); Mean Corpuscular Volume 90.8 fL (81-99); Mean Platelet Vol. 8.3 fl (6.2-12.0); Monocyte# 0.55 X10^3/uL; Monocyte% 6.4 % (0-10); NRBC Flagged by Analyzer 0 % (0-5); Neutrophil # 5.49 X10^3/uL (2.7-7.7); Neutrophil % 63.5 % (47-70); Platelet Count 165 K/mm3 (150-450); RBC Distribution Width CV 13.8 % (11.6-14.6); White Blood Count 8.6 K/mm3 (4.4-11.0)
[2024-04-15] MEDS: Lactated Ringers 1,000 ML 999 ML IV (04:51)
[2024-04-15 05:01] LABS: Fibrinogen 573 mg/dl (203-444)
[2024-04-15 05:11] LABS: Syphilis Antibodies Non-reactive
--- NOTE | 2024-04-15 05:29 | OB.TRI.HP_ITS ---
HPI - General HPI Narrative SHIRA LOPEZ, is a 33 F who presents with episode of spotting at 30 weeks while wiping, some suprapubic pain, no lof no regular ctx no abdominal trauma. n ointercourse Maternal Data Information KEVIN Calculator Estimated Delivery Date Method Current WG Current Estimate 06/21/24 Ultrasound #1 30w 3d Other Estimates 06/15/24 LMP (Certain) 31w 2d 06/18/24 Ultrasound #2 30w 6d PFSH PFSH Medical History Hx pulmonary embolism Seasonal allergies Viral encephalitis Wears contact lenses Wears glasses Depression Anxiety Back pain Injury of back Blackout History of IBS Gastric reflux Endocervical polyp Recurrent UTI Dysmenorrhea Infertility Irregular menses Anxiety and depression Home Medications ?Medication ?Instructions ?Recorded ?Last Taken ?Type Lactobacillus acidophilus 10 100 mmu cells PO DAILY 05/10/23 Unknown History billion cell capsule (Probiotic) PNV 153-FA 400 mcg-om3 35 mg-dha tab PO 11/21/23 Unknown History 25 mg-epa 5 mg-fish oil chew tablet cyclobenzaprine 5 mg tablet 5 mg PO TID PRN muscle spasm #30 02/08/24 Unknown Rx tabs enoxaparin 40 mg/0.4 mL 40 mg (0.4 mL) subcut QDAY 30 days 04/05/24 Unknown Rx subcutaneous syringe (Lovenox) #12 mL ferrous sulfate 325 mg (65 mg 325 mg PO Q OTHER DAY 04/05/24 Unknown History iron) tablet sertraline 100 mg tablet 100 mg PO DAILY 04/05/24 Unknown History Allergy/AdvReac Type Severity Reaction Status Date / Time hydromorphone (From Dilaudid) Allergy Hives Verified 04/10/24 10:14 Sulfa (Sulfonamide Allergy Diarrhea Verified 04/10/24 10:14 Antibiotics) Family History Father Heart disease Hypertension Mother Breast cancer, Onset Age: 70 Sister Multiple sclerosis, Onset Age: 35 Surgical History [place] teeth extracted Status post hysteroscopy (~05/23/23) Status post laparoscopy Social History adopted: No household members: spouse current occupational status: employed 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 current occupational exposures/hazards: No pets and animals: Yes (Avoid litterbox) pets and animals: cat(s), bird(s), f keyona, turtle(s) and other details: geko history of recent travel: No sexually active: Yes Smoking Status: Never smoker alcohol intake: current alcohol intake frequency: holidays/special occasions only details: Not while well-balanced diet: daily or most days caffeine: No eating out: 1-3 times/week during the past year weight has: remained stable what type of physical activity do you participate in: none isrrael/yazidi: Oriental Orthodox seatbelt use: always do you feel safe at home: Yes additional social history: - Bienvenido History 2 Elective abortions Hx Para 0 Spontaneous abortions 1 Hx # Term Pregnancies Ectopic pregnancies Hx # Pregnancies Multiple births # of living children 0 Past Pregnancies Del. Date Name GA/Weeks Outcome Route Bth Weight Infant Gen Labor Lgth Anesthesia Del [facility] Provider FOB 08/05/23 5 spontaneous Visit Details Expected Delivery Route/Plan Labor Preferences- CB/BF classes: scheduled labor support person: Bienvenido labor intervention preferences: [] pain management options preferred: undecided cut cord/dad catch: maybe : yes PP control planned: discussed discussed possible routes of delivery and associated risks: [] special requests: [] Plans Covid status: [] Flu vaccine: [] Tdap vaccine: [] Rhogam: na LARC form signed: yes Problem list reviewed and updated with the most current plan of care details and appropriate orders placed. Relevant counseling for the gestational age provided. Continue routine care and follow up unless otherwise noted in visit notes/problem list details OB Flowsheet Initial Weight: Not Recorded Date -?-?-?-?-?-?-?-?-?-?-?-?- EGA Weight BP Urine Prot -?-?-?-?-?-?-?-?-?-?-?-?- Glucose FHR FuHt Pres Dilation -?-?-?-?-?-?-?-?-?-?-?-?- Effaced St Visit Note 11/27/23 -?-?-?-?-?-?-?-?-?-?-?-?- 10w 3d 189 lb 2 oz 114/76 -?-?-?-?-?-?-?-?-?-?-?-?- 171 -?-?-?-?-?-?-?-?-?-?-?-?- JV- CRL consiste nt with her 6 week ultrasound (within 3 days) desires NIPT testing. has some nausea and wants to try OTC treatment. very small ULISSES seen. pt reassured. has had a light pink discharge present 12/26/23 -?-?-?-?-?-?-?-?-?-?-?-?- 14w 4d 189 lb 8 oz 110/70 Nega tive -?-?-?-?-?-?-?-?-?-?-?-?- Negative 156 -?-?-?-?-?-?-?-?-?-?-?-?- KW- no vb/crampi ng. MFM anatomy US ordered. having suprapubic tenderness. urine culture sent 01/23/24 -?-?-?-?-?-?-?-?-?-?-?-?- 18w 4d 191 lb 6 oz 106/68 Nega tive -?-?-?-?-?-?-?-?-?-?-?-?- Negative 150 -?-?-?-?-?-?-?-?-?-?-?-?- KW-no vb/crampin g. Anatomy US today with MFM-declines AFP 02/23/24 -?-?-?-?-?-?-?-?-?-?-?-?- 23w 0d 185 lb 114/68 Negative -?-?-?-?-?-?-?-?-?-?-?-?- Negative 146 23 -?-?-?-?-?-?-?--?-?-?-?-?- LC- normal anato my. using PT for LC- normal anatomy. using PT for SPD with some improvement. tanya long recommended. good fm. no ctx/lof/vb 03/12/24 -?-?-?--?-?-?-?-?-?-?-?-?- 25w 4d 187 lb 2 oz 107/66 Nega tive -?-?-?-?-?-?-?-?-?-?-?-?- Negative 140 -?-?-?-?-?-?-?-?-?-?-?-?- JSandra- pt is here f or left side abdominal pain located around the umbilicus. She describes it as sharp at times and feels sensitive when it is touched. on exam it is possible that she has a small periumbilical hernia. She very anxious and worried about the baby. Ordering ultrasound for growth for reassurance. recommend ice and compression. if becomes severe she has instructions to go to ER for emergency CT. 03/19/24 -?-?-?-?-?-?-?-?-?-?-?-?- 26w 4d 181 lb 6 oz 101/66 Nega tive -?-?-?-?-?-?-?-?-?-?-?-?- Negative 145 27 -?-?-?-?-?-?-?-?-?-?-?-?- MH-NO Vb, LOF. G ood FM. RL pain. Discussed and reassured. Larc. 28 wk labs. 04/05/24 -?-?-?-?-?-?-?-?-?-?-?-?- 29w 0d 175 lb 9.6 oz 110/67 Ne gative -?-?-?--?-?-?-?-?-?-?-?-?- Negative 140 29 -?-?-?-?-?-?-?-?-?-?-?-?- SM- no vb lof go od fm no regualr ctx some lower abdominal pain, co anxiety, discussed ;seeing counseling. SM- no vb lof good fm no reg ualr ctx some lower abdominal pain, co anxiety, discussed ;seeing counseling. discussed starting lovenox due to history of PE. 04/10/24 -?-?-?-?-?-?-?-?--?-?-?-?- 29w 5d 184 lb 4 oz 100/66 Nega tive -?-?-?-?-?-?-?-?-?-?-?-?- Negative 145 30 -?-?-?-?-?-?-?-?-?-?-?-?- JV- glucose log shows 2 hrs after dinner elevated. she wants to work on her diet this week. starting lovenox. RTO in one week to review log. ROS Constitutional Constitutional: Reports systems reviewed and no addt'l complaints, except as documented and as per HPI ENT HEENT: Reports systems reviewed and no addt'l complaints, except as documented Cardiovascular Cardiovascular: Reports systems reviewed and no addt'l complaints, except as documented Respiratory/Chest Respiratory/Chest: Reports systems reviewed and no addt'l complaints, except as documented Gastrointestinal Gastrointestinal: Reports as per HPI Genitourinary Genitourinary: Reports as per HPI Musculoskeletal Musculoskeletal: Reports systems reviewed and no addt'l complaints, except as documented Integumentary Integumentary: Reports systems reviewed and no addt'l complaints, except as documented Neurologic Neurologic: Reports systems reviewed and no addt'l complaints, except as documented Physical Exam Const alert, oriented x3 and no apparent distress HEENT Head and Scalp: normocephalic and atraumatic Neck full ROM and no lymphadenopathy Chest inspection of chest normal Resp normal respiratory effort GI GI Narrative: gravid, abdomen nontender, AGA Manual OB Exam: dilated, effaced and station NST FHR Rate Baby A Baseline: 145 Variability:: Moderate Accelerations:: 15 x 15 Decelerations:: Variable (isolated variabile) NST Reactive:: Yes FHR Category:: Category I Uterine Activity:: none Assessment & Plan (1) Vaginal bleeding during : COMMENT: seen in triage 04/15 scant bleeding, ordered labs and BPP (2) Hx pulmonary embolism: COMMENT: weekly nsts after 32 weeks and growth US q 4 weeks. factor V and Von Willebrand negative. occurred in 2008 on OCP. recommend lovenox in and 6 weeks . recommend testing for full thrombophilia panel. (3) Abnormal glucose affecting : COMMENT: passed out during 3 hour, checked bs at home (4) Scoliosis: COMMENT: consider anesthesia consult 3rd trim. (5) Anemia during : COMMENT: add FE (6) Abdominal pain during in second trimester: COMMENT: nl labs, urine culture sent, ultrasound ordered (7) AMA (advanced maternal age) multigravida 35+: QUALIFIERS: Trimester: second trimester Qualified Code(s): O09.522 - Supervision of elderly multigravida, second trimester (8) Pain in symphysis pubis during : COMMENT: PT referral Autho#[id number] (9) GBS (group B streptococcus) UTI complicating : QUALIFIERS: Trimester: second trimester Qualified Code(s): O23.42 - Unspecified infection of urinary tract in , second trimester; B95.1 - Streptococcus, group B, as the cause of diseases classified elsewhere COMMENT: Low growth/not treated. Treat in labor (10) Supervision of high-risk : QUALIFIERS: Trimester: second trimester Qualified Code(s): O09.92 - Supervision of high risk , unspecified, second trimester COMMENT: [id number], KEVIN 06/21/24, Bienvenido (11) : QUALIFIERS: Weeks of gestation: 29 weeks Qualified Code(s): Z3A.29 - 29 weeks gestation of COMMENT: LR NIPT Declines carrier and AFP (12) Anxiety and depression: COMMENT: zoloft. counseling encouraged PLAN: Plan labs and BPP ordered Charges/Coding Multi Select Codes Visit Charges Office Visit/Consults: 04892 OV L3 Est 20min Urinary/Genital Urinary/Genital CPT Codes: 08639-90 non-stress test Interp
[2024-04-15 08:10] VITALS: RESP 16; TEMP 36.3
[2024-04-15 08:11] VITALS: BP 102/53; PULSE 73
== END 2024-04-15 11:03 | disposition home or self-care (01) ==
LOC: WPOUT 02:44 → WP 02:44
PROVIDERS: PCP Family Medicine; Referring Provider Obstetrics & Gynecology; Visit Provider Obstetrics & Gynecology
DX: O26.853 Spotting complicating pregnancy, third trimester (principal); O09.523 Supervision of elderly multigravida, third trimester; O99.891 Other specified diseases and conditions complicating pregnancy; M41.9 Scoliosis, unspecified; O99.013 Anemia complicating pregnancy, third trimester; O99.820 Streptococcus B carrier state complicating pregnancy; O99.810 Abnormal glucose complicating pregnancy; O99.343 Other mental disorders complicating pregnancy, third trimester; F32.A Depression, unspecified; F41.9 Anxiety disorder, unspecified; Z79.899 Other long term (current) drug therapy; Z3A.29 29 weeks gestation of pregnancy; Z86.711 Personal history of pulmonary embolism
CPT/HCPCS: 96360; 96361; 36415; 59025; 59050; 76819; 81002; 85025; 85384; 86780; 86850; 86900; 86901; 87077; 87086; 87088; 87186; 99221; J7120; G0378

== ENCOUNTER 2024-04-27 08:58 | Emergency (ER) | payer BC, SELFPAY ==
[2024-04-27 08:58] VITALS: BP 97/63; PULSE 88; RESP 18; TEMP 36.6; O2SAT 97
[2024-04-27 09:00] VITALS: BMI 32.8
--- NOTE | 2024-04-27 09:23 | EKG12_ITS ---
Test Reason : SYNCOPE Blood Pressure : / mmHG Vent. Rate : 079 BPM Atrial Rate : 079 BPM P-R Int : 146 ms QRS Dur : 082 ms QT Int : 380 ms P-R-T Axes : 053 042 035 degrees QTc Int : 435 ms Normal sinus rhythm Normal ECG Confirmed by Loy Garcia ([id number]), associate entertainment editor DEVAN RAHMAN ([id number]) on 04/29/2024 10:05:44 AM Referred By: Confirmed By:Loy Garcia
--- NOTE | 2024-04-27 09:24 | EX.ED.DYSGE1 ---
HPI History of Present Illness Chief Complaint: Syncope Informant: patient and spouse/S.O. Narrative Narrative: 33-year-old female presenting to the emergency room with a chief complaint of syncope. Patient is approximately [address] Patrick Valencia at [place]. Patient is on Lovenox injections due to prior PE while on control pills. Patient states that this morning she gave her Lovenox injection into the right thigh. She made comment that it was hurting her and going into her buttock. Patient per her has a history of anxiety as well as passing out. She has passed out when the room was warm and also during her glucose tolerance test patient made the comment that she seemed to be hurting more and was worried that she was going to pass out. states that she slumped in the vehicle and was not breathing. He shook her and she woke up and took some breaths. She notes that her tongue was hurting and wonders if she bit it. No loss of bowel or bladder control. She denies any vaginal bleeding or leakage of fluid. She states that she used to take medication because her blood pressure was too low but has not recently but has noticed that her blood pressure has been lower than expected during the . She denies any preceding or ongoing chest pain or shortness of breath. She denies any headache. [facility] Medical History Hx pulmonary embolism Seasonal allergies Viral encephalitis Wears contact lenses Wears glasses Depression Anxiety Back pain Injury of back Blackout History of IBS Gastric reflux Endocervical polyp Recurrent UTI Dysmenorrhea Infertility Irregular menses Anxiety and depression Home Medications ?Medication ?Instructions ?Recorded ?Last Taken ?Type Lactobacillus acidophilus 10 100 mmu cells PO DAILY 05/10/23 Unknown History billion cell capsule (Probiotic) PNV 153-FA 400 mcg-om3 35 mg-dha tab PO 11/21/23 Unknown History 25 mg-epa 5 mg-fish oil chew tablet enoxaparin 40 mg/0.4 mL 40 mg (0.4 mL) subcut QDAY 30 days 04/05/24 Unknown Rx subcutaneous syringe (Lovenox) #12 mL ferrous sulfate 325 mg (65 mg 325 mg PO Q OTHER DAY 04/05/24 Unknown History iron) tablet sertraline 100 mg tablet 100 mg PO DAILY 04/05/24 Unknown History Allergy/AdvReac Type Severity Reaction Status Date / Time hydromorphone (From Dilaudid) Allergy Hives Verified 04/27/24 08:58 Sulfa (Sulfonamide Allergy Diarrhea Verified 04/27/24 08:58 Antibiotics) Family History Father Heart disease Hypertension Mother Breast cancer, Onset Age: 70 Sister Multiple sclerosis, Onset Age: 35 Surgical History [place] teeth extracted Status post hysteroscopy (~05/23/23) Status post laparoscopy Social History adopted: No household members: spouse current occupational status: employed 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 current occupational exposures/hazards: No pets and animals: Yes (Avoid litterbox) pets and animals: cat(s), bird(s), fish, turtle(s) and other details: geko history of recent travel: No sexually active: Yes Smoking Status: Never smoker alcohol intake: current alcohol intake frequency: holidays/special occasions only details: Not while well-balanced diet: daily or most days caffeine: No eating out: 1-3 times/week during the past year weight has: remained stable what type of physical activity do you participate in: none isrrael/taoism: Faith seatbelt use: always do you feel safe at home: Yes additional social history: - Bienvenido HIGUERA [facility]AL[facility] ED Constitutional Constitutional ED: Denies chills, fever(s) or weight loss Eyes Eyes: Denies change in vision or diplopia ENT ENT ED: Denies ear pain, rhinorrhea or sore throat Cardiovascular Cardiovascular: Reports other Details: Syncope ; Denies chest pain, orthopnea, palpitations or racing heartbeat Respiratory/Chest Respiratory/Chest: Denies cough, dyspnea or orthopnea Gastrointestinal Gastrointestinal: Denies abdominal pain, diarrhea, nausea or vomiting Genitourinary Genitourinary ED: Denies dysuria, hematuria or urinary frequency Musculoskeletal Musculoskeletal: Reports other Details: Left thigh pain ; Denies arthralgias or myalgias Integumentary Denies abscess or rash Neurologic Neurologic: Denies headache(s) or weakness Psychiatric Psychiatric: Denies anxiety, depression, suicidal ideation or suicidal thoughts Endocrine Endocrinology: Denies polydipsia, polyphagia or polyuria Allergic/Immunologic Allergic/Immunologic ED: Denies mouth swelling, tongue swelling or urticaria EXAM Physical Exam Const Vital Signs: 04/27/24 08:58 04/27/24 08:58 04/27/24 10:58 Temperature 97.8 F Temperature Source Temporal Pulse Rate 88 77 Respiratory Rate 18 16 Respiratory Effort Normal Respiratory Pattern Normal Blood Pressure 97/63 111/76 Blood Pressure Mean 74 87 Pulse Ox 97 100 Oxygen Delivery Method Room Air Positive well nourished and well developed General Appearance ED: well developed HEENT Reports normocephalic, head/scalp atraumatic and moist mucous membranes Eyes PERRL and EOMs intact bilaterally Neck no lymphadenopathy, supple and no JVD Resp normal respiratory effort and clear to auscultation bilaterally Cardio regular rate, regular rhythm and no murmurs GI normal to inspection, nondistended, normoactive bowel sounds and non-tender Palpation: soft Back/Spine no CVA tenderness and normal ROM Extremity normal to inspection General Extremety ED: Negative for edema General Extremity: Negative for edema Neuro oriented x3 and CN's II-XII intact bilaterally Sensorium / Orientation: alert Motor Exam: strength 5/5 throughout Psych mental status grossly normal Mood & Affect: Negative for depressed or tearful Skin no rashes or lesions noted and no wounds MDM MDM MDM Narrative Medical decision making narrative: Differential diagnosis would include but not limited to vasovagal syncope cardiac dysrhythmia electrolyte abnormality anemia seizure disorder eclampsia/preeclampsia UTI EKG shows a normal sinus rhythm with a ventricular 79 bpm. My independent interpretation the chest x-ray is normal mediastinal silhouette no acute process. Hemoglobin is 11 white count of 7 platelet count of 166. Normal LFTs glucose 117. Urinalysis contaminated 5-10 squamous cells but no overt infection. Patient's blood pressure has improved by about 15 points and she overall feels better. I think at this point with her history of vasovagal syncope and in the setting of pain she can be discharged home. I did speak with DIRECTOR OF EMAIL MARKETING. Patient is not having any pelvic symptoms and did not fall to the ground or strike her abdomen. heart tones are 148 and she is feeling the baby move. She will follow-up with them as scheduled History & Record Review Discussion w/independent historian: Patient and Significant other Lab Data Attestation: I reviewed the patient's lab results. Labs: Laboratory Results - last 24 hr 04/27/24 04/27/24 09:05 09:44 WBC 7.0 RBC 3.91 L Hgb 11.0 L Hct 35.1 L MCV 89.8 MCH 28.1 MCHC 31.3 L RDW Std Deviation 45.3 H RDW Coeff of Maynor 14.1 Plt Count 166 MPV 8.5 Immature Gran % (Auto) 1.100 H Neut % (Auto) 55.9 Lymph % (Auto) 35.3 [place] % (Auto) 6.5 Eos % (Auto) 0.6 Baso % (Auto) 0.6 Absolute Neuts (auto) 3.9 Absolute Lymphs (auto) 2.46 Nucleated RBC % 0 Sodium 138 Potassium 3.4 L Chloride 105 Carbon Dioxide 25.0 Anion Gap 8 BUN 8 Creatinine 0.69 Estim Creat Clear Calc 121.34 Est GFR (MDRD) Af Amer 124 Est GFR (MDRD) Non-Af 102 BUN/Creatinine Ratio 11.5 Glucose 117 H Calcium 9.7 Total Bilirubin 0.40 Direct Bilirubin 0.11 AST 10 L ALT 14 Alkaline Phosphatase 89 Total Protein 6.7 Albumin 2.7 L Globulin 4.0 Urine Color Yellow Urine Clarity Cloudy Urine pH 7.0 Ur Specific [place] 1.015 Urine Protein 100 H Urine Glucose (UA) Normal Urine Ketones 5 H Urine Occult Blood 10 H Urine Nitrite Negative Urine Bilirubin Negative Urine Urobilinogen Normal Ur Leukocyte Esterase 25 H Urine RBC 0-5 SEEN Urine WBC 5-10 SEEN Ur Squamous Epith Cells 5-10 SEEN Urine Bacteria 1+ Urine Mucus RARE Radiography Diagnostic Testing: Clinical Impression(s) from Imaging Studies Chest X-Ray 04/27/24 09:50 IMPRESSION: No acute thoracic pathology. Electronically Signed: Ti Ochoa MD at 10:01 EDT , Discharge Plan Triage Chief Complaint: Syncope ED Provider: Kendrick Onofre Dx/Rx/DC Orders Clinical Impression: Syncope, Third trimester Instructions: ED Fainting, Vagal Reaction Prescriptions: No Action PNV no.[id number] 400 mcg-35 mg- 25 mg-5 mg tablet,chewable PO sertraline 100 mg tablet 100 mg PO DAILY ferrous sulfate 325 mg (65 mg iron) tablet 325 mg PO Q OTHER DAY enoxaparin [Lovenox] 40 mg/0.4 mL syringe 40 mg subcut QDAY 30 Days Qty: 12 12RF Probiotic 10 billion cell capsule 100 mmu cells PO DAILY Primary Care Provider: Lindsey Farrell Referrals: Lindsey Farrell DO [Primary Care Provider] - Print Language: Czech Disposition Disposition: Home, Self Care
[2024-04-27 09:38] LABS: Absolute Lymphocyte Count 2.46 X10^3/uL (0.83-4.51); Absolute Neutrophil Count 3.9 X10^3/uL (2.0-7.7); Basophil# 0.04 X10^3/uL; Basophil% 0.6 % (0-1); Eosinophil# 0.04 X10^3/uL; Eosinophils% 0.6 % (0-5); Hematocrit 35.1 % (37-47); Lymphocyte # 2.46 X10^3/ul (0.83-4.51); Lymphocyte % 35.3 % (19-41); Mean Corp Hgb Conc 31.3 g/dL (32-36); Mean Corpuscular Hgb 28.1 pg (27.0-32.0); Mean Corpuscular Volume 89.8 fL (81-99); Mean Platelet Vol. 8.5 fl (6.2-12.0); Monocyte# 0.45 X10^3/uL; Monocyte% 6.5 % (0-10); NRBC Flagged by Analyzer 0 % (0-5); Neutrophil % 55.9 % (47-70); Platelet Count 166 K/mm3 (150-450); RBC Distribution Width CV 14.1 % (11.6-14.6); RBC Distribution Width SD 45.3 fl (35.1-43.9); Red Blood Count 3.91 M/mm3 (4.2-5.4)
[2024-04-27 09:50] LABS: AST(SGOT) 10 U/L (15-37); Alanine Aminotransfer ALT/SGPT 14 U/L (13-56); Albumin, Serum 2.7 g/dL (3.2-5.0); Alkaline Phosphatase 89 U/L (45-117); Anion Gap 8 (5-15); BUN 8 mg/dL (7-18); BUN/Creat Ratio 11.5 RATIO (10-20); Bilirubin, Direct 0.11 mg/dL (0.00-0.30); Calcium,Total 9.7 mg/dL (8.5-10.1); Chloride 105 mmol/L (98-107); Creatinine, Serum 0.69 mg/dL (0.55-1.02); EST Glomerular Filtration Rate 102 mL/min (>60); Est Glom Filt Rate - Afr Amer 124 mL/min (>60); Estimated Creatinine Clearance 121.34 ml/min; Glucose 117 mg/dL (74-106); Potassium 3.4 mmol/L (3.5-5.1); Protein, Total 6.7 g/dL (6.4-8.2); Sodium Level 138 mmol/L (136-145)
--- NOTE | 2024-04-27 09:50 | RAD_ITS ---
STUDY: X-RAY CHEST REASON FOR EXAM: Female, 33 years old. Syncope. TECHNIQUE: Frontal view of the chest COMPARISON: None. FINDINGS: The lungs are clear. There are no pleural effusions. There is no pneumothorax. The heart is normal in size. The visualized osseous structures are within normal limits. RAD/Chest 1 View (Portable) IMPRESSION: No acute thoracic pathology. Electronically Signed: Ti Ochoa MD at 10:01 EDT ,
[2024-04-27 09:55] LABS: Color, Urine Yellow (Yellow); Glucose, Dipstick Normal (Normal); Ketone-Dipstick 5 mg/dl (Negative); Leukocyte Esterase-Dipstick 25 /ul (Negative); Nitrite-Dipstick Negative (Negative); Occult Blood-Urine 10 /ul (Negative); Protein-Dipstick 100 mg/dl (Negative); Specific Gravity, Urine 1.015 (1.002-1.030); Urine Bilirubin Dipstick Negative (Negative); Urine Clarity Cloudy (Clear); Urine Urobilinogen Normal (Normal)
[2024-04-27 10:58] VITALS: BP 111/76; PULSE 77; RESP 16; O2SAT 100
[2024-04-27 11:05] LABS: Bacteria 1+ /hpf (None Seen); Mucous, Urine RARE /hpf (<or=2+); Red Blood Cells-Urine 0-5 SEEN /hpf (0-5); Squamous Epithelial Cells - UA 5-10 SEEN /hpf (5-10); White Blood Cells 5-10 SEEN /hpf (0-5)
[2024-04-27 11:42] VITALS: BP 114/72; PULSE 80; RESP 15; TEMP 36.9; O2SAT 96
== END 2024-04-27 11:43 | disposition home or self-care (01) ==
PROVIDERS: Emergency Provider Emergency Medicine; PCP Family Medicine; Visit Provider Emergency Medicine
DX: O99.891 Other specified diseases and conditions complicating pregnancy (principal); O09.513 Supervision of elderly primigravida, third trimester; R55 Syncope and collapse; Z79.899 Other long term (current) drug therapy; Z86.718 Personal history of other venous thrombosis and embolism; Z3A.00 Weeks of gestation of pregnancy not specified
CPT/HCPCS: 71045; 80048; 80076; 81001; 85025; 93005; 99284

== ENCOUNTER → 2024-04-29 | Outpatient (CLI) | payer BC, SELFPAY ==
--- NOTE | 2024-04-29 08:29 | US_ITS ---
INDICATION: growth EXAMINATION: Ultrasound US OB Follow-Up TECHNIQUE: Transabdominal pelvic ultrasound was performed. COMPARISON: No relevant prior comparison study available LMP: Unknown. Beta-hCG: Unknown. Provided EGA: 32 weeks 3 days FINDINGS: INTRAUTERINE GESTATION(s): Single. ESTIMATED GESTATIONAL AGE: 33 weeks 2 days ESTIMATED DUE DATE (KEVIN): 06/15/2024 BIOMETRIC MEASUREMENTS: HEAD CIRCUMFERENCE: 30.39 cm which corresponds to 33 weeks 6 days. BIPARIETAL DIAMETER: 8.36 cm which corresponds to 33 weeks 5 days. ABDOMINAL CIRCUMFERENCE: 29.46 cm which corresponds to 33 weeks 3 days. FEMORAL LENGTH: 5.96 cm which corresponds to 31 weeks 0 days. HEART MOTION is 169 bpm. AMNIOTIC FLUID INDEX (APRIL): 16.6 cm ESTIMATED WEIGHT: 2070 g Percentile 54%. BIOPHYSICAL PROFILE (BPP): Not assessed. PRESENTATION: Cephalic PLACENTA: Posterior. There is no placenta previa or abruption. CERVIX: Not visualized. FREE FLUID: None. US/OB Limited With Biometrics IMPRESSION: Single live intrauterine of gestational age by ultrasound of 33 weeks 2 days. No acute abnormality. Electronically Signed: Aidan Bullard MD at 22:39 EDT ,
== END | disposition home or self-care (01) ==
PROVIDERS: PCP Family Medicine; Referring Provider Obstetrics & Gynecology; Visit Provider Obstetrics & Gynecology
DX: O99.810 Abnormal glucose complicating pregnancy (principal); O09.92 Supervision of high risk pregnancy, unspecified, second trimester; R10.2 Pelvic and perineal pain; Z3A.00 Weeks of gestation of pregnancy not specified
CPT/HCPCS: 76816; 87077; 87086; 87088; 87186

== ENCOUNTER 2024-05-02 16:25 | Outpatient (CLI) | payer BC, SELFPAY ==
[2024-05-02 16:51] VITALS: BP 122/70; PULSE 84; RESP 16; TEMP 36.8
[2024-05-02 16:52] VITALS: PULSE 80; O2SAT 97
[2024-05-02] MEDS: Lactated Ringers 1,000 ML 999 ML IV (17:00)
[2024-05-02 17:02] VITALS: BMI 31.4
--- NOTE | 2024-05-03 21:22 | OB.TRI.NOTE ---
HPI - General HPI Narrative SHIRA LOPEZ, is a 33 y/o @ 32 weeks 6 days who presents to L&D from office for extended monitoring, to rule out ROM, and for IV fluids. She has been payton and NST in the office, although reactive, showed changes in baseline that may be variable decelerations or could just be changes in baseline. She was also found to have frequent contractions. A rom plus and pelvic exam were performed in the office prior to her being sent to L&D. Maternal Data Information KEVIN Calculator Estimated Delivery Date Method Current WG Current Estimate 06/21/24 Ultrasound #1 33w 3d Other Estimates 06/15/24 LMP (Certain) 34w 2d 06/18/24 Ultrasound #2 33w 6d PFSH PFSH Medical History Hx pulmonary embolism Seasonal allergies Viral encephalitis Wears contact lenses Wears glasses Depression Anxiety Back pain Injury of back Blackout History of IBS Gastric reflux Endocervical polyp Recurrent UTI Dysmenorrhea Infertility Irregular menses Anxiety and depression Home Medications ?Medication ?Instructions ?Recorded ?Last Taken ?Type Lactobacillus acidophilus 10 100 mmu cells PO DAILY 05/10/23 Unknown History billion cell capsule (Probiotic) PNV 153-FA 400 mcg-om3 35 mg-dha 1 tab PO 11/21/23 Unknown History 25 mg-epa 5 mg-fish oil chew tablet enoxaparin 40 mg/0.4 mL 40 mg (0.4 mL) subcut QDAY 30 days 04/05/24 Unknown Rx subcutaneous syringe (Lovenox) #12 mL ferrous sulfate 325 mg (65 mg 325 mg PO Q OTHER DAY 04/05/24 Unknown History iron) tablet sertraline 100 mg tablet 100 mg PO DAILY 04/05/24 Unknown History Allergy/AdvReac Type Severity Reaction Status Date / Time hydromorphone (From Dilaudid) Allergy Hives Verified 05/02/24 17:00 Sulfa (Sulfonamide Allergy Diarrhea Verified 05/02/24 17:00 Antibiotics) Family History Father Heart disease Hypertension Mother Breast cancer, Onset Age: 70 Sister Multiple sclerosis, Onset Age: 35 Surgical History [place] teeth extracted Status post hysteroscopy (~05/23/23) Status post laparoscopy Social History adopted: No household members: spouse current occupational status: employed current occupation: [employer] current occupational exposures/hazards: No pets and animals: Yes (Avoid litterbox) pets and animals: cat(s), bird(s), fish, turtle(s) and other details: geko history of recent travel: No sexually active: Yes Smoking Status: Never smoker alcohol intake: current alcohol intake frequency: holidays/special occasions only details: Not while well-balanced diet: daily or most days caffeine: No eating out: 1-3 times/week during the past year weight has: remained stable what type of physical activity do you participate in: none isrrael/amish: Samaritan seatbelt use: always do you feel safe at home: Yes additional social history: - Bienvenido History 2 Elective abortions Hx Para 0 Spontaneous abortions 1 Hx # Term Pregnancies Ectopic pregnancies Hx # Pregnancies Multiple births # of living children 0 Past Pregnancies Del. Date Name GA/Weeks Outcome Route Bth Weight Infant Gen Labor Lgth Anesthesia Del Locatn Provider FOB 08/05/23 5 spontaneous Visit Details Expected Delivery Route/Plan Labor Preferences- CB/BF classes: scheduled labor support person: Bienvenido labor intervention preferences: [] pain management options preferred: undecided cut cord/dad catch: maybe : yes PP control planned: discussed discussed possible routes of delivery and associated risks: [] special requests: [] Plans Covid status: [] Flu vaccine: [] Tdap vaccine: [] Rhogam: na LARC form signed: yes Problem list reviewed and updated with the most current plan of care details and appropriate orders placed. Relevant counseling for the gestational age provided. Continue routine care and follow up unless otherwise noted in visit notes/problem list details OB Flowsheet Initial Weight: Not Recorded Date <del>?</del> EGA Weight BP Urine Prot <del>?</del> Glucose FHR FuHt Pres Dilation <del>?</del> Effaced St Visit Note 11/27/23 <del>?</del> 10w 3d 189 lb 2 oz 114/76 <del>?</del> 171 <del>?</del> JV- CRL consistent with her 6 week ultrasound (within 3 days) desires NIPT testing. has some nausea and wants to try OTC treatment. very small ULISSES seen. pt reassured. has had a light pink discharge present 12/26/23 <del>?</del> 14w 4d 189 lb 8 oz 110/70 Negative <del>?</del> Negative 156 <del>?</del> KW- no vb/cramping. MFM anatomy US ordered. having suprapubic tenderness. urine culture sent 01/23/24 <del>?</del> 18w 4d 191 lb 6 oz 106/68 Negative <del>?</del> Negative 150 <del>?</del> KW-no vb/cramping. Anatomy US today with MFM-declines AFP 02/23/24 <del>?</del> 23w 0d 185 lb 114/68 Negative <del>?</del> Negative 146 23 <del>?</del> LC- normal anatomy. using PT for LC- normal anatomy. using PT for SPD with some improvement. belly band recommended. good fm. no ctx/lof/vb 03/12/24 <del>?</del> 25w 4d 187 lb 2 oz 107/66 Negative <del>?</del> Negative 140 <del>?</del> JV- pt is here for left side abdominal pain located around the umbilicus. She describes it as sharp at times and feels sensitive when it is touched. on exam it is possible that she has a small periumbilical hernia. She very anxious and worried about the baby. Ordering ultrasound for growth for reassurance. recommend ice and compression. if becomes severe she has instructions to go to ER for emergency CT. 03/19/24 <del>?</del> 26w 4d 181 lb 6 oz 101/66 Negative <del>?</del> Negative 145 27 <del>?</del> MH-NO Vb, LOF. Good FM. RL pain. Discussed and reassured. Larc. 28 wk labs. 04/05/24 <del>?</del> 29w 0d 175 lb 9.6 oz 110/67 Negative <del>?</del> Negative 140 29 <del>?</del> SM- no vb lof good fm no regualr ctx some lower abdominal pain, co anxiety, discussed ;seeing counseling. SM- no vb lof good fm no regualr ctx some lower abdominal pain, co anxiety, discussed ;seeing counseling. discussed starting lovenox due to history of PE. 04/10/24 <del>?</del> 29w 5d 184 lb 4 oz 100/66 Negative <del>?</del> Negative 145 30 <del>?</del> JV- glucose log shows 2 hrs after dinner elevated. she wants to work on her diet this week. starting lovenox. RTO in one week to review log. 04/17/24 <del>?</del> 30w 5d 184 lb 117/65 Negative <del>?</del> Negative 140 31 <del>?</del> SM- no vb lof good fm no regular ctx discussed taking antibiotic. SM- no vb lof good fm no regular ctx discussed taking antibiotic. reviewed BS Logs and vast majojrity are WNL so will say no diabetes- will continue to monitor sporadically. 05/02/24 <del>?</del> 32w 6d 183 lb 6 oz 100/65 Negative <del>?</del> Negative 150 0 <del>?</del> JV- NST shows borderline tachycardia, contractions q 2 minutes and 2 variable decels. sending to L&D JV- NST shows borderline tachycardia, contractions q 2 minutes and 2 variable decels. sending to L&D. rom plus collected. ROS Constitutional Constitutional: Reports systems reviewed and no addt'l complaints, except as documented Gastrointestinal Gastrointestinal: Denies bloating, constipation, cramping, diarrhea, nausea or vomiting Genitourinary Genitourinary: Reports other Details: Denies vaginal odor, vaginal bleeding, or vaginal discharge ; Denies difficulty urinating or flank pain NST FHR Rate Baby A Baseline: 155 Variability:: Moderate Accelerations:: 15 x 15 Decelerations:: None NST Reactive:: Yes FHR Category:: Category I Uterine Activity:: slowed down after IV fluids given Assessment & Plan (1) Threatened labor: PLAN: IV fluids given and NST looks normal/reactive. rom plus neg ok to dc to home. (2) Vaginal bleeding during : COMMENT: seen in triage 04/15 scant bleeding, ordered labs and BPP (3) Hx pulmonary embolism: COMMENT: weekly nsts after 32 weeks and growth US q 4 weeks. factor V and Von Willebrand negative. occurred in 2008 on OCP. recommend lovenox in and 6 weeks . recommend testing for full thrombophilia panel. (4) Abnormal glucose affecting : COMMENT: passed out during 3 hour, checked bs at home (5) Scoliosis: COMMENT: consider anesthesia consult 3rd trim. (6) Anemia during : COMMENT: add FE (7) Abdominal pain during in second trimester: COMMENT: nl labs, urine culture sent, ultrasound ordered (8) AMA (advanced maternal age) multigravida 35+: QUALIFIERS: Trimester: second trimester Qualified Code(s): O09.522 - Supervision of elderly multigravida, second trimester (9) Pain in symphysis pubis during : COMMENT: PT referral Autho#[id number] (10) GBS (group B streptococcus) UTI complicating : QUALIFIERS: Trimester: second trimester Qualified Code(s): O23.42 - Unspecified infection of urinary tract in , second trimester; B95.1 - Streptococcus, group B, as the cause of diseases classified elsewhere COMMENT: Low growth/not treated. Treat in labor (11) Supervision of high-risk : QUALIFIERS: Trimester: second trimester Qualified Code(s): O09.92 - Supervision of high risk , unspecified, second trimester COMMENT: [id number], KEVIN 06/21/24, Bienvenido (12) : QUALIFIERS: Weeks of gestation: 32 weeks Qualified Code(s): Z3A.32 - 32 weeks gestation of COMMENT: LR NIPT Declines carrier and AFP (13) Anxiety and depression: COMMENT: christal. counseling encouraged Charges/Coding Multi Select Codes Urinary/Genital Urinary/Genital CPT Codes: 46233-45 non-stress test Interp
== END 2024-05-02 18:20 | disposition home or self-care (01) ==
LOC: WPOUT 16:34 → WP 16:34
PROVIDERS: PCP Family Medicine; Referring Provider Obstetrics & Gynecology; Visit Provider Obstetrics & Gynecology
DX: O47.03 False labor before 37 completed weeks of gestation, third trimester (principal); O99.343 Other mental disorders complicating pregnancy, third trimester; F41.9 Anxiety disorder, unspecified; F32.A Depression, unspecified; Z86.711 Personal history of pulmonary embolism; Z3A.32 32 weeks gestation of pregnancy
CPT/HCPCS: 96365; 59025; 59050; 99221; J7120; G0378

== ENCOUNTER → 2024-05-02 | Outpatient (CLI) | payer BC, SELFPAY ==
[2024-05-02 16:54] LABS: ROM Internal Control Test YES-OK TO RESULT pt. (Internal QC); ROM Patient Test Negative (Negative); Record Kit Lot#, ROM+ K1660
== END | disposition home or self-care (01) ==
PROVIDERS: PCP Family Medicine; Referring Provider Obstetrics & Gynecology; Visit Provider Obstetrics & Gynecology
DX: O26.899 Other specified pregnancy related conditions, unspecified trimester (principal); N89.8 Other specified noninflammatory disorders of vagina; Z3A.00 Weeks of gestation of pregnancy not specified
CPT/HCPCS: 84112

== ENCOUNTER 2024-05-15 05:25 | Outpatient (CLI) | payer BC, SELFPAY ==
[2024-05-15 05:39] VITALS: BMI 31.6
[2024-05-15 05:44] VITALS: BP 115/69; PULSE 86; PULSE 96; RESP 16; TEMP 37.1; O2SAT 100; O2SAT 91; O2SAT 98
[2024-05-15 06:16] LABS: Color, Urine Straw (Yellow); Glucose, Dipstick Normal (Normal); Ketone-Dipstick Negative (Negative); Leukocyte Esterase-Dipstick Negative /ul (Negative); Nitrite-Dipstick Negative (Negative); Occult Blood-Urine Negative /ul (Negative); Protein-Dipstick Negative (Negative); Urine Bilirubin Dipstick Negative (Negative); Urine Clarity Clear (Clear); Urine Urobilinogen Normal (Normal); Urine pH 6.5 (5.0 - 8.0)
[2024-05-15] MEDS: Acetaminophen 500 MG Tablet 1000 MG PO (06:59)
[2024-05-15] MEDS: Ringers, Lactated 1,000 ML IV.SOLN. 1000 ML IV (07:00)
[2024-05-15 07:36] VITALS: BP 111/70; PULSE 88; RESP 14; TEMP 37.1; O2SAT 98
--- NOTE | 2024-05-15 12:44 | OB.TRI.HP_ITS ---
HPI - General HPI Narrative SHIRA LOPEZ, is a 33 y/o @ 34 weeks 5 days who presents to L&D to rule out labor. The nurse that checked her initially has reported that her cervix is closed and she denies leaking fluid or decreased movement .She feels pressure and contractions. The nurse reports that she is not palpating co ntractions. Maternal Data Information KEVIN Calculator Estimated Delivery Date Method Current WG Current Estimate 06/21/24 Ultrasound #1 34w 6d Other Estimates 06/15/24 LMP (Certain) 35w 5d 06/18/24 Ultrasound #2 35w 2d PFSH PFSH Medical History Hx pulmonary embolism Seasonal allergies Viral encephalitis Wears contact lenses Wears glasses Depression Anxiety Back pain Injury of back Blackout History of IBS Gastric reflux Endocervical polyp Recurrent UTI Dysmenorrhea Infertility Irregular menses Anxiety and depression Home Medications ?Medication ?Instructions ?Recorded ?Last Taken ?Type Lactobacillus acidophilus 10 100 mmu cells PO DAILY 05/10/23 05/14/24 08:00 History billion cell capsule (Probiotic) PNV 153-FA 400 mcg-om3 35 mg-dha 1 tab PO see provid 11/21/23 05/14/24 21:00 History 25 mg-epa 5 mg-fish oil chew tablet enoxaparin 40 mg/0.4 mL 40 mg (0.4 mL) subcut QDAY 30 days 04/05/24 05/14/24 08:00 Rx subcutaneous syringe (Lovenox) #12 mL ferrous sulfate 325 mg (65 mg 325 mg PO Q OTHER DAY 04/05/24 05/14/24 08:00 History iron) tablet sertraline 100 mg tablet 100 mg PO DAILY 04/05/24 05/14/24 21:00 History Allergy/AdvReac Type Severity Reaction Status Date / Time hydromorphone (From Dilaudid) Allergy Hives Verified 05/15/24 05:38 Sulfa (Sulfonamide Allergy Diarrhea Verified 05/15/24 05:38 Antibiotics) Family History Father Heart disease Hypertension Mother Breast cancer, Onset Age: 70 Sister Multiple sclerosis, Onset Age: 35 Surgical History [place] teeth extracted Status post hysteroscopy (~05/23/23) Status post laparoscopy Social History adopted: No household members: spouse current occupational status: employed 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 current occupational exposures/hazards: No pets and animals: Yes (Avoid litterbox) pets and animals: cat(s), bird(s), fish, turtle(s) and other details: [place] history of recent travel: No sexually active: Yes Smoking Status: Never smoker alcohol intake: current alcohol intake frequency: holidays/special occasions only details: Not while well-balanced diet: daily or most days caffeine: No eating out: 1-3 times/week during the past year weight has: remained stable what type of physical activity do you participate in: none isrrael/gnosticist: Scientologist seatbelt use: always do you feel safe at home: Yes additional social history: - [place]venido History 2 Elective abortions Hx Para 0 Spontaneous abortions 1 Hx # Term Pregnancies Ectopic pregnancies Hx # Pregnancies Multiple births # of living children 0 Past Pregnancies Del. Date Name GA/Weeks Outcome Route Bth Weight Infant Gen Labor Lgth Anesthesia Del Locatn Provider FOB 08/05/23 5 spontaneous Visit Details Expected Delivery Route/Plan Labor Preferences- CB/BF classes: scheduled labor support person: Bienvenido labor intervention preferences: [] pain management options preferred: undecided cut cord/dad catch: maybe : yes PP control planned: discussed discussed possible routes of delivery and associated risks: [] special requests: [] Plans Covid status: [] Flu vaccine: [] Tdap vaccine: [] Rhogam: na LARC form signed: yes Problem list reviewed and updated with the most current plan of care details and appropriate orders placed. Relevant counseling for the gestational age provided. Continue routine care and follow up unless otherwise noted in visit notes/problem list details OB Flowsheet Initial Weight: Not Recorded Date -?-?-?-?-?-?-?-?-?-?-?-?- EGA Weight BP Urine Prot -?-?-?-?-?-?-?-?-?-?-?-?- Glucose FHR FuHt Pres Dilation -?-?-?-?-?-?-?-?-?-?-?-?- Effaced St Visit Note 11/27/23 -?-?-?-?-?-?-?-?-?-?-?-?- 10w 3d 189 lb 2 oz 114/76 -?-?-?-?-?-?-?-?-?-?-?-?- 171 -?-?-?-?-?-?-?-?-?-?-?-?- JV- CRL consiste nt with her 6 week ultrasound (within 3 days) desires NIPT testing. has some nausea and wants to try OTC treatment. very small ULISSES seen. pt reassured. has had a light pink discharge present 12/26/23 -?-?-?-?-?-?-?-?-?-?-?-?- 14w 4d 189 lb 8 oz 110/70 Nega tive -?-?-?-?-?-?-?-?-?-?-?-?- Negative 156 -?-?-?-?-?-?-?-?-?-?-?-?- KW- no vb/crampi ng. MFM anatomy US ordered. having suprapubic tenderness. urine culture sent 01/23/24 -?-?-?-?-?-?-?-?-?-?-?-?- 18w 4d 191 lb 6 oz 106/68 Nega tive -?-?-?-?-?-?-?-?-?-?-?-?- Negative 150 -?-?-?-?-?-?-?-?-?-?-?-?- KW-no vb/crampin g. Anatomy US today with MFM-declines AFP 02/23/24 -?-?-?-?-?-?-?-?-?-?-?-?- 23w 0d 185 lb 114/68 Negative -?-?-?-?-?-?-?-?-?-?-?-?- Negative 146 23 -?-?-?-?-?-?-?-?-?-?-?-?- LC- normal anato my. using PT for LC- normal anatomy. using PT for SPD with some improvement. belly band recommended. good fm. no ctx/lof/vb 03/12/24 -?-?-?-?-?-?-?-?-?-?-?-?- 25w 4d 187 lb 2 oz 107/66 Nega tive -?-?-?-?-?-?-?-?--?-?-?-?- Negative 140 -?-?-?-?-?-?-?-?-?-?-?-?- JV- pt is here f or left side abdominal pain located around the umbilicus. She describes it as sharp at times and feels sensitive when it is touched. on exam it is possible that she has a small periumbilical hernia. She very anxious and worried about the baby. Ordering ultrasound for growth for reassurance. recommend ice and compression. if becomes severe she has instructions to go to ER for emergency CT. 03/19/24 -?-?-?-?-?-?-?-?-?-?-?-?- 26w 4d 181 lb 6 oz 101/66 Nega tive -?-?-?-?-?-?-?-?-?-?-?-?- Negative 145 27 -?-?-?-?-?-?-?-?-?-?-?-?- MH-NO Vb, LOF. G ood FM. RL pain. Discussed and reassured. Larc. 28 wk labs. 04/05/24 -?-?-?-?-?-?-?-?-?-?-?-?- 29w 0d 175 lb 9.6 oz 110/67 Ne gative -?-?-?-?-?-?-?-?-?-?-?-?- Negative 140 29 -?-?-?-?-?-?-?-?-?-?-?-?- SM- no vb lof go od fm no regualr ctx some lower abdominal pain, co anxiety, discussed ;seeing counseling. SM- no vb lof good fm no reg ualr ctx some lower abdominal pain, co anxiety, di scussed ;seeing counseling. discussed starting lovenox due to history of PE. 04/10/24 -?-?-?-?-?-?-?-?-?-?-?-?- 29w 5d 184 lb 4 oz 100/66 Nega tive -?-?-?-?-?-?-?-?-?-?-?-?- Negative 145 30 -?-?-?-?-?-?-?-?-?-?-?-?- JV- glucose log shows 2 hrs after dinner elevated. she wants to work on her diet this week. starting lovenox. RTO in one week to review log. 04/17/24 -?-?-?-?-?-?-?-?-?-?-?-?- 30w 5d 184 lb 117/65 Negative -?-?-?-?-?-?-?-?-?-?-?-?- Negative 140 31 -?-?-?-?-?-?-?-?-?-?-?-?- SM- no vb lof go od fm no regular ctx discussed taking antibiotic. SM- no vb lof good fm no reg ular ctx discussed taking antibiotic. reviewed BS Logs and vast majojrity are WNL so will say no diabetes- will continue to monitor sporadically. 05/02/24 -?-?-?-?-?-?-?-?-?-?-?-?- 32w 6d 183 lb 6 oz 100/65 Nega tive -?-?-?-?-?-?--?-?-?-?-?-?- Negative 150 0 -?-?-?-?-?-?-?-?-?-?-?-?- JV- NST shows afsaneh rderline tachycardia, contractions q 2 minutes and 2 variable decels. sending to L&D JV- NST shows borderline fet al tachycardia, contractions q 2 minutes and 2 variable decels. sending to L&D. rom plus collected. 05/09/24 -?-?-?-?-?-?-?-?-?-?-?-?- 33w 6d 183 lb 112/86 -?-?-?-?-?-?-?-?-?-?-?-?- 150 -?-?-?-?-?-?-?-?-?-?-?-?- KW- NST only. re active. no concerns. ROS Constitutional Constitutional: Reports systems reviewed and no addt'l complaints, except as documented Gastrointestinal Gastrointestinal: Denies bloating, constipation, cramping, diarrhea, nausea or vomiting Genitourinary Genitourinary: Reports other Details: Denies vaginal odor, vaginal bleeding, or vaginal discharge ; Denies difficulty urinating or flank pain NST FHR Rate Baby A Baseline: 150 Variability:: Moderate Accelerations:: 15 x 15 Decelerations:: None NST Reactive:: Yes FHR Category:: Category I Assessment & Plan (1) Threatened labor: (2) Hx pulmonary embolism: COMMENT: weekly nsts after 32 weeks and growth US q 4 weeks. factor V and Von Willebrand negative. occurred in 2008 on OCP. recommend lovenox in and 6 weeks . recommend testing for full thrombophilia panel. (3) Abnormal glucose affecting : COMMENT: passed out during 3 hour, checked bs at home (4) Scoliosis: COMMENT: consider anesthesia consult 3rd trim. (5) Anemia during : COMMENT: add FE (6) Abdominal pain during in second trimester: COMMENT: nl labs, urine culture sent, ultrasound ordered (7) AMA (advanced maternal age) multigravida 35+: QUALIFIERS: Trimester: second trimester Qualified Code(s): O09.522 - Supervision of elderly multigravida, second trimester (8) Pain in symphysis pubis during : COMMENT: PT referral Autho#[id number] (9) GBS (group B streptococcus) UTI complicating : QUALIFIERS: Trimester: second trimester Qualified Code(s): O23.42 - Unspecified infection of urinary tract in , second trimester; B95.1 - Streptococcus, group B, as the cause of diseases classified elsewhere COMMENT: Low growth/not treated. Treat in labor (10) Supervision of high-risk : QUALIFIERS: Trimester: second trimester Qualified Code(s): O09.92 - Supervision of high risk , unspecified, second trimester COMMENT: [id number], KEVIN 06/21/24, Bienvenido (11) : QUALIFIERS: Weeks of gestation: 33 weeks Qualified Code(s): Z3A.33 - 33 weeks gestation of COMMENT: LR NIPT Declines carrier and AFP (12) Anxiety and depression: COMMENT: christopheroft. counseling encouraged PLAN: Plan NST reactive and no change in cervix.- ok to dc to home Charges/Coding Multi Select Codes Urinary/Genital Urinary/Genital CPT Codes: 93107-91 non-stress test Interp
== END 2024-05-15 09:03 | disposition home or self-care (01) ==
LOC: WPOUT 05:29 → WP 05:30
PROVIDERS: PCP Family Medicine; Referring Provider Obstetrics & Gynecology; Visit Provider Obstetrics & Gynecology
DX: O47.03 False labor before 37 completed weeks of gestation, third trimester (principal); O09.523 Supervision of elderly multigravida, third trimester; O99.891 Other specified diseases and conditions complicating pregnancy; O99.013 Anemia complicating pregnancy, third trimester; O99.343 Other mental disorders complicating pregnancy, third trimester; F41.9 Anxiety disorder, unspecified; M41.9 Scoliosis, unspecified; F32.A Depression, unspecified; Z79.899 Other long term (current) drug therapy; Z3A.34 34 weeks gestation of pregnancy; Z86.711 Personal history of pulmonary embolism
CPT/HCPCS: 96365; 59025; 59050; 81002; 99221; J7120; G0378

== ENCOUNTER 2024-05-17 16:37 | Outpatient (CLI) | payer BC, SELFPAY ==
[2024-05-17 16:54] VITALS: BMI 31.9
--- NOTE | 2024-05-17 16:55 | US_ITS ---
STUDY: OBSTETRICAL ULTRASOUND - BIOPHYSICAL PROFILE REASON FOR EXAM: Female, 33 years old tachycardia LMP: PRIOR ULTRASOUND: None. TECHNIQUE: Transabdominal TECHNICAL QUALITY: Adequate. FINDINGS: There is a single intrauterine fetus. The fetus is in a cephalic presentation. There is demonstrated cardiac activity with a heart rate of 150 bpm. There is a normal amniotic fluid volume. The largest amniotic fluid pocket measures 7.9 cm. The amniotic fluid index (APRIL) is 19.0 cm. The placenta is posterior in location and is not low lying. There are Grade 2 placental changes. Age by LMP: 35 weeks, 0 days. KEVIN by LMP: 06/21/2024. BIOPHYSICAL PROFILE: Breathing Movements (FBM): 0 Gross Body Movements (GBM): 2 Tone (FT): 2 Amniotic Fluid Volume (AFV): 2 TOTAL SCORE: 6 / 8 US/Biophysical Prof W/O Non Stres IMPRESSION: Abnormal biophysical profile with score of 6/8 because of no bleeding. Electronically Signed: Luis Enrique Zepeda MD at 19:30 EDT ,
[2024-05-17 16:57] VITALS: BP 109/67; PULSE 88; RESP 16; TEMP 37.2; O2SAT 97
[2024-05-17 16:58] VITALS: PULSE 93; O2SAT 97
[2024-05-17 16:59] VITALS: BP 109/67; PULSE 88
--- NOTE | 2024-05-17 18:36 | OB.TRI.PN ---
Progress Notes Date of Service: 05/17/24 Progress Note: Patient presents for triage evaluation secondary to tachycardia on NST in the office. FHT: 145 Moderate variability reactive no decelerations category I tracing [place]: irregular Contractions Assessment and plan: BPP 6/8 taken off for breathing per radiology, Reactive NST to make total BPP 8/10, reassuring maternal and status patient discharged to home to follow-up in the office at next scheduled appt. See problem list details for additional plan information. Charges/Coding Multi Select Codes Urinary/Genital Urinary/Genital CPT Codes: 17111-84 non-stress test Interp Assessment & Plan (1) Hx pulmonary embolism: COMMENT: weekly nsts after 32 weeks and growth US q 4 weeks. factor V and Von Willebrand negative. occurred in 2008 on OCP. recommend lovenox in and 6 weeks . recommend testing for full thrombophilia panel. (2) Abnormal glucose affecting : COMMENT: passed out during 3 hour, checked bs at home (3) Scoliosis: COMMENT: consider anesthesia consult 3rd trim. (4) Anemia during : COMMENT: add FE (5) Abdominal pain during in second trimester: COMMENT: nl labs, urine culture sent, ultrasound ordered (6) AMA (advanced maternal age) multigravida 35+: QUALIFIERS: Trimester: second trimester Qualified Code(s): O09.522 - Supervision of elderly multigravida, second trimester (7) Pain in symphysis pubis during : COMMENT: PT referral Autho#[id number] (8) GBS (group B streptococcus) UTI complicating : QUALIFIERS: Trimester: second trimester Qualified Code(s): O23.42 - Unspecified infection of urinary tract in , second trimester; B95.1 - Streptococcus, group B, as the cause of diseases classified elsewhere COMMENT: Low growth/not treated. Treat in labor (9) Supervision of high-risk : QUALIFIERS: Trimester: second trimester Qualified Code(s): O09.92 - Supervision of high risk , unspecified, second trimester COMMENT: [id number], KEVIN 06/21/24, Bienvenido (10) : QUALIFIERS: Weeks of gestation: 35 weeks Qualified Code(s): Z3A.35 - 35 weeks gestation of COMMENT: LR NIPT Declines carrier and AFP (11) Anxiety and depression: COMMENT: zoloft. counseling encouraged (12) tachycardia: COMMENT: reassuring NST and BPP. d/c home
== END 2024-05-17 18:55 | disposition home or self-care (01) ==
LOC: WPOUT 16:39 → WP 16:40
PROVIDERS: PCP Family Medicine; Referring Provider Advanced Practice Midwife; Visit Provider Advanced Practice Midwife
DX: O47.03 False labor before 37 completed weeks of gestation, third trimester (principal); Z79.899 Other long term (current) drug therapy; Z86.711 Personal history of pulmonary embolism; Z3A.35 35 weeks gestation of pregnancy
CPT/HCPCS: 59025; 59050; 76819; 99221; G0378

== ENCOUNTER → 2024-05-27 | Outpatient (CLI) | payer BC, SELFPAY ==
--- NOTE | 2024-05-27 12:28 | US_ITS ---
HISTORY: growth. TECHNIQUE: Transabdominal pelvic ultrasound was performed. 44 images. COMPARISON: 05/17/2024. FINDINGS: INTRAUTERINE GESTATION(s): Single. PRESENTATION: Cephalic. HEART MOTION: 164 bpm. PLACENTA: Posterior and right lateral, grade 2. No placenta previa . CERVIX: Not well-visualized. AMNIOTIC FLUID INDEX (APRIL): 22.4 cm. Maximum vertical pocket 8 cm. biometry- BIPARIETAL DIAMETER: 8.9 cm, corresponding to 36 weeks 1 day. HEAD CIRCUMFERENCE: 32.2 cm, corresponding to 36 weeks 2 days. ABDOMINAL CIRCUMFERENCE: 33.8 cm, corresponding to 37 weeks 5 days. FEMUR LENGTH: 6.7 cm, corresponding to 34 weeks 4 days. ESTIMATED GESTATIONAL AGE: 36 weeks 2 days. ESTIMATED DUE DATE (KEVIN): 06/22/2024. ESTIMATED WEIGHT: 3022 g corresponding to 62nd percentile. US/OB Limited With Biometrics IMPRESSION: Single living intrauterine with an estimated gestational age of 36 weeks 2 days. APRIL 22.4 cm. Electronically Signed: Isatu Middleton MD at 10:27 EDT ,
== END | disposition home or self-care (01) ==
LOC: OPUS 12:27
PROVIDERS: PCP Family Medicine; Referring Provider Obstetrics & Gynecology; Visit Provider Obstetrics & Gynecology
DX: O99.810 Abnormal glucose complicating pregnancy (principal); O09.92 Supervision of high risk pregnancy, unspecified, second trimester; Z3A.00 Weeks of gestation of pregnancy not specified
CPT/HCPCS: 76816

== ENCOUNTER 2024-05-28 21:10 | Outpatient (CLI) | payer BC, SELFPAY ==
[2024-05-28 21:18] VITALS: BMI 32.1
[2024-05-28 21:32] VITALS: RESP 16; TEMP 36.5
--- NOTE | 2024-05-30 07:56 | OB.TRI.PN_ITS ---
Progress Notes Date of Service: 05/28/24 Progress Note: Patient presents for triage evaluation secondary to false labor FHT: 155 Moderate variability reactive no decelerations category I tracing [place]: no regular Contractions Assessment and plan: false labor 35 weeks Reactive NST, reassuring maternal and status patient discharged to home to follow-up as scheduled. See problem list details for additional plan information. Charges/Coding Procedures Urinary/Genital 52xxx-59xxx: 82074-35 non-stress test Interp Assessment & Plan (1) False labor: (2) 35 weeks gestation of :
== END 2024-05-28 22:05 | disposition home or self-care (01) ==
LOC: WPOUT 21:12 → WP 21:12
PROVIDERS: PCP Family Medicine; Referring Provider Obstetrics & Gynecology; Visit Provider Obstetrics & Gynecology
DX: O47.03 False labor before 37 completed weeks of gestation, third trimester (principal); Z79.899 Other long term (current) drug therapy; Z86.711 Personal history of pulmonary embolism
CPT/HCPCS: 59025; 59050; 99221; G0378

== ENCOUNTER → 2024-05-29 | Outpatient (CLI) | payer BC, SELFPAY ==
[2024-05-29 11:04] LABS: ROM Internal Control Test YES-OK TO RESULT pt. (Internal QC); ROM Patient Test Negative (Negative)
== END | disposition home or self-care (01) ==
LOC: LABSPEC 10:37
PROVIDERS: PCP Family Medicine; Referring Provider Obstetrics & Gynecology; Visit Provider Obstetrics & Gynecology
DX: O26.899 Other specified pregnancy related conditions, unspecified trimester (principal); N89.8 Other specified noninflammatory disorders of vagina; Z3A.00 Weeks of gestation of pregnancy not specified
CPT/HCPCS: 84112

== ENCOUNTER 2024-06-13 19:15 | Inpatient (IN) | payer BC, SELFPAY ==
[2024-06-13 19:10] VITALS: BMI 32.7
[2024-06-13 20:00] LABS: Absolute Lymphocyte Count 1.64 X10^3/uL (0.83-4.51); Absolute Neutrophil Count 4.1 X10^3/uL (2.0-7.7); Basophil# 0.01 X10^3/uL; Basophil% 0.2 % (0-1); Eosinophil# 0.02 X10^3/uL; Eosinophils% 0.3 % (0-5); Hematocrit 34.6 % (37-47); Hemoglobin 11.1 g/dL (12.0-15.0); Lymphocyte # 1.64 X10^3/ul (0.83-4.51); Lymphocyte % 26.8 % (19-41); Mean Corp Hgb Conc 32.1 g/dL (32-36); Mean Corpuscular Hgb 28.6 pg (27.0-32.0); Mean Corpuscular Volume 89.2 fL (81-99); Mean Platelet Vol. 8.9 fl (6.2-12.0); Monocyte# 0.36 X10^3/uL; Monocyte% 5.9 % (0-10); NRBC Flagged by Analyzer 0 % (0-5); Neutrophil # 4.05 X10^3/uL (2.7-7.7); Neutrophil % 66.3 % (47-70); Platelet Count 131 K/mm3 (150-450); RBC Distribution Width CV 14.3 % (11.6-14.6); RBC Distribution Width SD 46.3 fl (35.1-43.9); Red Blood Count 3.88 M/mm3 (4.2-5.4); White Blood Count 6.1 K/mm3 (4.4-11.0)
[2024-06-13 20:12] VITALS: BP 112/74; PULSE 99
[2024-06-13 20:46] LABS: Syphilis Antibodies Non-reactive
[2024-06-13] MEDS: miSOPROStol 25 MCG TABLET VAGINAL (21:20)
[2024-06-13 21:23] LABS: Bedside Glucose 157 mg/dL (74-106)
[2024-06-13] MEDS: Penicillin G Pot 5,000,000 UNITS in 0.9% Normal Saline (100mL MB+) 100 ML 150 UNITS IV (21:40)
[2024-06-13] MEDS: Lactated Ringers 1,000 ML 50 ML IV (21:40)
[2024-06-13 22:04] VITALS: RESP 16; TEMP 36.9
[2024-06-13 22:05] VITALS: BP 117/56; PULSE 73
[2024-06-13 22:34] LABS: Bedside Glucose 122 mg/dL (74-106)
[2024-06-13 23:31] VITALS: BP 136/81; PULSE 72; RESP 16; TEMP 36.9
[2024-06-14] VITALS (101 sets, daily range): BP systolic 115–149; BP diastolic 55–81; PULSE 59–198; RESP 16–18; TEMP 36.4–37.5; O2SAT 85–100
[2024-06-14] MEDS: Penicillin G 3,000,000 Units 50 ML 100 UNITS IV ×5 (01:43→18:30)
[2024-06-14] MEDS: Acetaminophen 500 MG Tablet PO (02:23)
[2024-06-14 03:14] LABS: Bedside Glucose 75 mg/dL (74-106)
[2024-06-14 06:11] LABS: Bedside Glucose 71 mg/dL (74-106)
[2024-06-14] MEDS: 0.9% Saline Lock 10 ML Syringe IV (06:39)
[2024-06-14] MEDS: Lactated Ringers 1,000 ML 999 ML IV (09:18)
[2024-06-14] MEDS: fentaNYL-bupivacaine (epidural) 100 ML BAG EPIDURAL ×3 (09:21→19:01)
[2024-06-14] MEDS: Lactated Ringers 1,000 ML 200 ML IV (10:20)
[2024-06-14 10:25] LABS: Bedside Glucose 80 mg/dL (74-106)
[2024-06-14 12:11] LABS: Bedside Glucose 78 mg/dL (74-106)
[2024-06-14 13:17] LABS: Bedside Glucose 108 mg/dL (74-106)
[2024-06-14 14:40] LABS: Bedside Glucose 66 mg/dL (74-106)
[2024-06-14 15:45] LABS: Bedside Glucose 102 mg/dL (74-106)
[2024-06-14] MEDS: Oxytocin 15 Units/NS 250ml 15 UNITS/250 ML IV.SOLN 2 UNITS IV (16:06)
[2024-06-14 17:42] LABS: Bedside Glucose 70 mg/dL (74-106)
[2024-06-14] MEDS: Mag Hydrox/Al Hydrox/Simeth 30 ML UDC PO (19:41)
[2024-06-14] MEDS: Oxytocin 15 Units/NS 250ml 15 UNITS/250 ML IV.SOLN 83 UNITS IV (21:10)
[2024-06-14 21:51] LABS: Bedside Glucose 101 mg/dL (74-106)
[2024-06-14 21:51] LABS: Bedside Glucose 87 mg/dL (74-106)
[2024-06-14] MEDS: Acetaminophen 500 MG Tablet 1000 MG PO (22:09)
[2024-06-15] MEDS: 0.9% Saline Lock 10 ML Syringe IV (00:14)
[2024-06-15 05:05] VITALS: BP 123/73; PULSE 83; RESP 16; TEMP 36.9; O2SAT 97
[2024-06-15 06:30] LABS: Bedside Glucose 99 mg/dL (74-106)
[2024-06-15] MEDS: Acetaminophen 500 MG Tablet 1000 MG PO ×2 (06:30→18:34)
[2024-06-15 08:12] VITALS: BP 115/72; PULSE 82; RESP 16; TEMP 36.5; O2SAT 97
[2024-06-15] MEDS: Enoxaparin 40 MG/0.4 ML Syringe SC (10:29)
[2024-06-15] MEDS: Sertraline 100 MG Tablet PO (10:30)
[2024-06-15] MEDS: Senna/Docusate Sodium 1 Tablet PO (10:31)
[2024-06-15 13:05] VITALS: BP 120/64; PULSE 84; RESP 16; TEMP 36.7; O2SAT 97
[2024-06-15 16:45] VITALS: BP 129/78; PULSE 94; RESP 16; TEMP 37.1; O2SAT 95
[2024-06-15 21:00] VITALS: BP 116/85; PULSE 85; RESP 16; TEMP 36.7; O2SAT 97
[2024-06-16] MEDS: Acetaminophen 500 MG Tablet 1000 MG PO ×2 (00:56→09:51)
[2024-06-16 01:12] VITALS: BP 114/69; PULSE 71; RESP 16; TEMP 36.7; O2SAT 98
[2024-06-16] MEDS: Enoxaparin 40 MG/0.4 ML Syringe SC (09:49)
[2024-06-16] MEDS: Sertraline 100 MG Tablet PO (09:49)
[2024-06-16] MEDS: Senna/Docusate Sodium 1 Tablet PO (09:49)
[2024-06-16 10:00] VITALS: BP 119/84; PULSE 72; RESP 16; TEMP 36.6; O2SAT 98
[2024-06-16] MEDS: Ibuprofen 600 MG Tablet PO (11:35)
== END 2024-06-16 12:40 | disposition home or self-care (01) | DRG 807 ==
PROVIDERS: Admitting Provider Obstetrics & Gynecology; PCP Family Medicine; Referring Provider Obstetrics & Gynecology; Visit Provider Obstetrics & Gynecology
DX: O99.02 Anemia complicating childbirth (principal); Z37.0 Single live birth; O99.344 Other mental disorders complicating childbirth; D64.9 Anemia, unspecified; F32.A Depression, unspecified; F41.9 Anxiety disorder, unspecified; O70.1 Second degree perineal laceration during delivery; O99.824 Streptococcus B carrier state complicating childbirth; Z79.01 Long term (current) use of anticoagulants; Z79.899 Other long term (current) drug therapy; Z3A.37 37 weeks gestation of pregnancy; Z86.32 Personal history of gestational diabetes; Z86.711 Personal history of pulmonary embolism
CPT/HCPCS: 59025; 59050; 76815; 82962; 85025; 86780; 86850; 86900; 86901; 99221; J7120; A4216; G0378

== ENCOUNTER → 2024-07-03 | Outpatient (CLI) | payer BC, SELFPAY | END | disposition home or self-care (01) | LOC: LABSPEC 11:50 | PROVIDERS: PCP Family Medicine; Referring Provider Advanced Practice Midwife; Visit Provider Advanced Practice Midwife | DX: R30.0 Dysuria (principal) | CPT/HCPCS: 87086; 87088; 87186 ==

== ENCOUNTER → 2024-07-04 | Outpatient (CLI) | payer BC, SELFPAY ==
--- NOTE | 2024-07-04 13:47 | US_ITS ---
STUDY: ULTRASOUND OF THE FEMALE PELVIS - COMPLETE REASON FOR EXAM: Female, 33 years old. Left side pelvic pain, 3 weeks post LMP: TECHNIQUE: Transabdominal TECHNICAL QUALITY: Adequate. COMPARISON: Comparison is made with prior study dated May 27, 2024. FINDINGS: The uterus is anteverted and is in a midline position. The uterus measures 8.8 cm x 8.3 cm x 5.1 cm. Normal uterine cervix. The endometrium measures 8 mm in thickness, and is heterogeneous (striated). Findings suggestive of a 7 mm x 3 mm x 5 mm endometrial polyp. There is a 1 cm x 1.3 cm x 1.1 cm uterine fibroid. I.U.D. - The patient does not have an I.U.D. The right ovary is visualized. The right ovary measures 3.2 cm x 2.2 cm x 1.6 cm. There is no right ovarian cyst or ovarian mass. There is no visualized right adnexal mass or complex lesion. There is normal arterial and normal venous vascularity. The left ovary is non-visualized due to overlying bowel gas. There is no fluid in the cul-de-sac. US/Pelvic (Non ) IMPRESSION: Questionable 7 mm x 3 mm x 5 mm endometrial polyp. 1 cm x 1.3 cm x 1.1 cm uterine fibroid. Electronically Signed: Vernon Quinonez MD at 14:44 EST ,
== END | disposition home or self-care (01) ==
LOC: US 13:45
PROVIDERS: PCP Family Medicine; Referring Provider Obstetrics & Gynecology; Visit Provider Obstetrics & Gynecology
DX: R10.2 Pelvic and perineal pain (principal)
CPT/HCPCS: 76856

== ENCOUNTER 2024-07-10 21:58 | Emergency (ER) | payer BC, SELFPAY ==
[2024-07-10 21:58] VITALS: BP 98/85; PULSE 99; RESP 16; TEMP 36.8; O2SAT 97; BMI 28.7
[2024-07-10 22:00] VITALS: BP 117/78; PULSE 79; RESP 18; TEMP 36.8; O2SAT 95
[2024-07-10 22:25] LABS: Bacteria 0 SEEN /hpf (None Seen); Mucous, Urine 0 SEEN /hpf (<or=2+)
[2024-07-10 22:27] LABS: Color, Urine Yellow (Yellow); Glucose, Dipstick Normal (Normal); Ketone-Dipstick Negative (Negative); Leukocyte Esterase-Dipstick 500 /ul (Negative); Nitrite-Dipstick Negative (Negative); Occult Blood-Urine 50 /ul (Negative); Protein-Dipstick 15 mg/dl (Negative); Urine Bilirubin Dipstick Negative (Negative); Urine Clarity Sl. Cloudy (Clear); Urine Urobilinogen Normal (Normal)
[2024-07-10 22:41] LABS: Red Blood Cells-Urine 0-5 SEEN /hpf (0-5); White Blood Cells 10-25 SEEN /hpf (0-5)
[2024-07-10 22:42] LABS: Squamous Epithelial Cells - UA 0-5 SEEN /hpf (5-10)
--- NOTE | 2024-07-10 22:58 | CT_ITS ---
INDICATION: recurent UTI, pelvic pain, recent delivery EXAMINATION: CT ABDOMEN AND PELVIS WITH CONTRAST - CT Abdomen And Pelvis W/ Contrast Injection TECHNIQUE: Helically acquired images were obtained of the abdomen and pelvis following IV contrast. A radiation dose optimization technique was used for this scan. IV Contrast dosage and agent: 100 cc Isovue-370 Oral contrast: None. COMPARISON: None. FINDINGS: LOWER CHEST: Lung bases are clear. No cardiomegaly or pericardial effusion. LIVER: Homogeneous. No focal mass. GALLBLADDER AND BILIARY TREE: No calcified gallstones. No gallbladder distension or wall edema. No intra- or extrahepatic biliary ductal dilation. PANCREAS: No focal cystic or solid mass. SPLEEN: Normal size without focal cystic or solid mass. ADRENAL GLANDS: No nodules. KIDNEYS AND URETERS: Uniform enhancement. No hydronephrosis. PERITONEUM: No ascites or free air. BOWEL: Normal appendix. No stomach or bowel distension. No focal inflammatory change. Diffusely increased colonic fecal burden. LYMPH NODES: No enlarged mesenteric or retroperitoneal lymph nodes. VESSELS: Aorta is non-dilated. URINARY BLADDER: Unremarkable. REPRODUCTIVE ORGANS: No pelvic masses. ABDOMINAL WALL: Small fat-containing umbilical hernia. BONES: Unremarkable. CT/Abdomen/Pelvis W IV Cont ONLY IMPRESSION: No acute findings in the abdomen or pelvis. Colonic fecal burden consistent with clinical constipation. Electronically Signed: Davion Dumont MD at 0:31 EST ,
[2024-07-10 23:00] VITALS: BP 115/71; PULSE 84; RESP 18; TEMP 36.8; O2SAT 95
--- NOTE | 2024-07-10 23:03 | EDS_ITS ---
HPI HPI - Female History of Present Illness Chief Complaint: Complaint Informant: patient Narrative Narrative: Patient is a 33-year-old female with history of endometriosis and pulmonary emboli presenting with recurrent dysuria and urinary tract infection symptoms. Patient is 3 weeks . She had a relatively uncomplicated vaginal delivery. She notes that she has had continued UTI symptoms however over the past week or 2. She initially went to urgent care where she was placed on a prescription of Keflex for 1 week. She still had issues and then followed up with her [facility]. She had a urine culture that came back positive for 11-25,000 presumptive E. coli that was pansensitive as well as a gram-negative parvin with less than the thousand CFU's per mL. She was then placed on a course of Macrobid. She states she has continued to have UTI symptoms including dysuria, chills, lower pelvic/suprapubic abdominal pain and lower back pain. She notes that she has had continued vaginal bleeding but it is starting to lighten up. She states the pain radiates to her back and down to her groin and slightly worse on the right now. She denies any fevers. She did have a headache today. She took a home UTI test which was positive and she came to the ER for further evaluation. Patient notes her [facility] also ordered a pelvic ultrasound which she was told was largely normal but did show findings of an endometrial polyp and fibroid. Denies any associated vaginal discharge or odor. [facility] Medical History Vaginal delivery Polyhydramnios Autoimmune disease Gestational diabetes Seasonal allergies Viral encephalitis Wears contact lenses Wears glasses Depression Anxiety Back pain Injury of back Blackout History of IBS Gastric reflux Endocervical polyp Recurrent UTI Dysmenorrhea Infertility Hx pulmonary embolism Irregular menses Anxiety and depression Home Medications ?Medication ?Instructions ?Recorded ?Last Taken ?Type Lactobacillus acidophilus 10 100 mmu cells PO DAILY bowel 05/10/23 05/17/24 07:00 History billion cell capsule (Probiotic) PNV 153-FA 400 mcg-om3 35 mg-dha 1 tab PO DAILY see provid 11/21/23 06/12/24 History 25 mg-epa 5 mg-fish oil chew tablet enoxaparin 40 mg/0.4 mL 40 mg (0.4 mL) subcut QDAY 04/05/24 06/12/24 Rx subcutaneous syringe (Lovenox) 30 days #12 mL ferrous sulfate 325 mg (65 mg 325 mg PO Q OTHER DAY supple 04/05/24 06/12/24 History iron) tablet sertraline 100 mg tablet 100 mg PO DAILY anxiety 04/05/24 06/12/24 History hydroxyzine pamoate 50 mg capsule 50 mg PO QHS PRN agitation #30 caps 05/29/24 Unknown Rx cephalexin 500 mg capsule 500 mg PO 4X/DAY 07/10/24 Unknown History nitrofurantoin 1 cap PO BID 07/10/24 Unknown History monohydrate/macrocrystals 100 mg capsule polyethylene glycol 3350 17 17 g PO DAILY PRN constipation 07/11/24 Unknown Rx gram/dose oral powder (ClearLax) #119 grams Allergy/AdvReac Type Severity Reaction Status Date / Time hydromorphone (From Dilaudid) Allergy Hives Verified 07/10/24 22:00 Sulfa (Sulfonamide Allergy Diarrhea Verified 07/10/24 22:00 Antibiotics) Family History Father Heart disease Hypertension Mother Breast cancer, Onset Age: 70 Sister Multiple sclerosis, Onset Age: 35 Surgical History [place] teeth extracted Status post hysteroscopy (~05/23/23) Status post laparoscopy Social History adopted: No household members: spouse current occupational status: employed 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 current occupational exposures/hazards: No pets and animals: Yes (Avoid litterbox) pets and animals: cat(s), bird(s), fish, turtle(s) and other details: [place] history of recent travel: No sexually active: Yes Smoking Status: Never smoker alcohol intake: current alcohol intake frequency: holidays/special occasions only details: Not while well-balanced diet: daily or most days caffeine: No eating out: 1-3 times/week during the past year weight has: remained stable what type of physical activity do you participate in: none isrrael/denominational: Holiness seatbelt use: always do you feel safe at home: Yes additional social history: - [facility] ED Constitutional Constitutional ED: Reports chills; Denies fever(s) Cardiovascular Cardiovascular: Denies chest pain Respiratory/Chest Respiratory/Chest: Denies cough Gastrointestinal Gastrointestinal: Reports abdominal pain; Denies constipation, diarrhea or vomiting Genitourinary Genitourinary ED: Reports dysuria and other Details: vaginal bleed Musculoskeletal Musculoskeletal: Denies arthralgias EXAM Physical Exam Const Vital Signs: 07/10/24 21:58 07/10/24 22:00 07/10/24 23:00 Temperature 98.2 F 98.2 F 98.2 F Temperature Source Oral Oral Oral Pulse Rate 99 79 84 Respiratory Rate 16 18 18 Blood Pressure 98/85 H 117/78 115/71 Blood Pressure Mean 89 91 85 Pulse Ox 97 95 95 Oxygen Delivery Method Room Air Room Air Room Air 07/11/24 00:00 Temperature 98.2 F Temperature Source Oral Pulse Rate 98 Respiratory Rate 16 Blood Pressure 115/75 Blood Pressure Mean 88 Pulse Ox 99 Oxygen Delivery Method Room Air Positive well nourished and well developed General Appearance ED: well developed and NAD HEENT Reports moist mucous membranes Eyes PERRL Neck supple Chest Wall inspection of chest normal Resp normal respiratory effort and clear to auscultation bilaterally Cardio regular rate and regular rhythm GI soft to palpation and non-distended Auscultation: normoactive bowel sounds Palpation: tender suprapubic; Negative for guarding Narrative: Normal external genitalia. There is a suture in place at the perineum that appears to be healing well. No surrounding signs of infection. Patient does not tolerate speculum exam. No cervical motion tenderness or significant tenderness on bimanual exam however. No abnormal discharge or odor appreciated Back/Spine no CVA tenderness Neuro oriented x3 Sensorium / Orientation: alert Psych mental status grossly normal Skin no rashes or lesions noted and no wounds MDM MDM MDM Narrative Medical decision making narrative: Patient is evaluated for continued dysuria and concerns for recurrent urinary tract infection. Urine culture reviewed from 1 week ago did grow E. coli but was pansensitive and had only 25,000 CFU's. Should have been treated appropriately with Macrobid. Given the recurrent symptoms, recent delivery and continued lower abdominal pain will obtain a CT to ensure there is no other acute abnormality. Patient overall is well-appearing. Will obtain labs to ensure she does not have findings consistent with more severe infection. Lab work largely normal. Urinalysis shows 500 glucide esterase with 10-25 white blood cells but no bacteria. Urine culture is sent. CT abdomen pelvis shows physis with constipation but no other acute process. Patient will be started on MiraLAX to help with this. I will give referral for urology and also patient follow-up with her [facility] [employer] [facility]. Patient is comfortable waiting for her urine culture for treatment. Is given return precautions. She verbalized agreement or stands plan. Discharged home in stable condition Lab Data Labs: Laboratory Results - last 24 hr 07/10/24 07/10/24 20:18 23:07 WBC 7.7 RBC 4.05 L Hgb 11.6 L Hct 36.1 L MCV 89.1 MCH 28.6 MCHC 32.1 RDW Std Deviation 41.2 RDW Coeff of Maynor 12.7 Plt Count 201 MPV 8.6 Immature Gran % (Auto) 0.400 Neut % (Auto) 63.9 Lymph % (Auto) 27.3 Cross % (Auto) 6.2 Eos % (Auto) 1.7 Baso % (Auto) 0.5 Absolute Neuts (auto) 5.0 Absolute Lymphs (auto) 2.11 Nucleated RBC % 0 Sodium 139 Potassium 4.0 Chloride 106 Carbon Dioxide 27.0 Anion Gap 5 BUN 15 Creatinine 0.74 Estim Creat Clear Calc 105.77 Est GFR (MDRD) Af Amer 115 Est GFR (MDRD) Non-Af 95 BUN/Creatinine Ratio 20.3 H Glucose 138 H Calcium 9.1 Total Bilirubin 0.30 AST 12 L ALT 17 Alkaline Phosphatase 100 Total Protein 6.8 Albumin 3.5 Globulin 3.3 Albumin/Globulin Ratio 1.1 Urine Color Yellow Urine Clarity Sl. Cloudy Urine pH 5.0 Ur Specific [place] 1.020 Urine Protein 15 H Urine Glucose (UA) Normal Urine Ketones Negative Urine Occult Blood 50 H Urine Nitrite Negative Urine Bilirubin Negative Urine Urobilinogen Normal Ur Leukocyte Esterase 500 H Urine RBC 0-5 SEEN Urine WBC 10-25 SEEN Ur Squamous Epith Cells 0-5 SEEN Urine Bacteria 0 SEEN Urine Mucus 0 SEEN Discharge Plan Triage Chief Complaint: Complaint ED Provider: Nancy Lerma Dx/Rx/DC Orders Clinical Impression: Dysuria, Constipation Instructions: ED Constipation (Adult), ED Dysuria, Uncertain Cause (Adult) Prescriptions: New polyethylene glycol 3350 [ClearLax] 17 gram/dose powder 17 g PO DAILY PRN (Reason: constipation) Qty: 119 0RF No Action PNV no.[id number] 400 mcg-35 mg- 25 mg-5 mg tablet,chewable 1 tab PO DAILY sertraline 100 mg tablet 100 mg PO DAILY ferrous sulfate 325 mg (65 mg iron) tablet 325 mg PO Q OTHER DAY enoxaparin [Lovenox] 40 mg/0.4 mL syringe 40 mg subcut QDAY 30 Days Qty: 12 12RF hydroxyzine pamoate 50 mg capsule 50 mg PO QHS PRN (Reason: agitation) Qty: 30 2RF Probiotic 10 billion cell capsule 100 mmu cells PO DAILY cephalexin 500 mg capsule 500 mg PO 4X/DAY nitrofurantoin monohyd/m-cryst 100 mg capsule 1 cap PO BID Primary Care Provider: Lindsey Farrell Referrals: Lindsey Farrell, [Primary Care Provider] - Louann Hurst MD [Med Staff - Active Staff] - As Needed Activity Restrictions/Additional Instructions: Your CT was largely normal. Your blood work was normal today. Your white blood cell count did show signs of inflammation but no bacteria. Your CT however did show findings consistent with constipation. We will put you on MiraLAX to help you have further bowel movements and see if this helps with your symptoms. You will be contacted if your urine culture comes back positive and you need further antibiotics. Please follow-up with your [facility] [employer] [facility] for further management of this. Print Language: Jordanian Disposition Disposition: Home, Self Care
[2024-07-10 23:14] LABS: Absolute Lymphocyte Count 2.11 X10^3/uL (0.83-4.51); Basophil# 0.04 X10^3/uL; Basophil% 0.5 % (0-1); Eosinophil# 0.13 X10^3/uL; Eosinophils% 1.7 % (0-5); Hematocrit 36.1 % (37-47); Hemoglobin 11.6 g/dL (12.0-15.0); Lymphocyte # 2.11 X10^3/ul (0.83-4.51); Lymphocyte % 27.3 % (19-41); Mean Corp Hgb Conc 32.1 g/dL (32-36); Mean Corpuscular Hgb 28.6 pg (27.0-32.0); Mean Corpuscular Volume 89.1 fL (81-99); Mean Platelet Vol. 8.6 fl (6.2-12.0); Monocyte# 0.48 X10^3/uL; Monocyte% 6.2 % (0-10); NRBC Flagged by Analyzer 0 % (0-5); Neutrophil # 4.95 X10^3/uL (2.7-7.7); Neutrophil % 63.9 % (47-70); Platelet Count 201 K/mm3 (150-450); RBC Distribution Width CV 12.7 % (11.6-14.6); RBC Distribution Width SD 41.2 fl (35.1-43.9); Red Blood Count 4.05 M/mm3 (4.2-5.4); White Blood Count 7.7 K/mm3 (4.4-11.0)
[2024-07-10 23:29] LABS: ALB/GLOB Ratio 1.1 RATIO (0.9-2.4); AST(SGOT) 12 U/L (15-37); Alanine Aminotransfer ALT/SGPT 17 U/L (13-56); Albumin, Serum 3.5 g/dL (3.2-5.0); Alkaline Phosphatase 100 U/L (45-117); Anion Gap 5 (5-15); BUN 15 mg/dL (7-18); BUN/Creat Ratio 20.3 RATIO (10-20); Calcium,Total 9.1 mg/dL (8.5-10.1); Chloride 106 mmol/L (98-107); Creatinine, Serum 0.74 mg/dL (0.55-1.02); EST Glomerular Filtration Rate 95 mL/min (>60); Est Glom Filt Rate - Afr Amer 115 mL/min (>60); Estimated Creatinine Clearance 105.77 ml/min; Globulin 3.3 g/dL (2.2-4.2); Glucose 138 mg/dL (74-106); Protein, Total 6.8 g/dL (6.4-8.2); Sodium Level 139 mmol/L (136-145)
[2024-07-11] VITALS: BP 115/75; PULSE 98; RESP 16; TEMP 36.8; O2SAT 99
[2024-07-11 00:38] VITALS: BP 110/67; PULSE 77; RESP 12; TEMP 36.9; O2SAT 100
== END 2024-07-11 00:43 | disposition home or self-care (01) ==
PROVIDERS: Emergency Provider Emergency Medicine; PCP Family Medicine; Visit Provider Emergency Medicine
DX: O99.893 Other specified diseases and conditions complicating puerperium (principal); O99.63 Diseases of the digestive system complicating the puerperium; R30.0 Dysuria; K59.00 Constipation, unspecified; Z79.899 Other long term (current) drug therapy; Z86.711 Personal history of pulmonary embolism
CPT/HCPCS: 74177; 80053; 81001; 85025; 87086; 87088; 99282; Q9967; A4216

== ENCOUNTER → 2024-08-02 | Outpatient (CLI) | payer BC, SELFPAY ==
--- NOTE | 2024-08-02 18:09 | US_ITS ---
STUDY: ULTRASOUND OF THE FEMALE PELVIS - COMPLETE REASON FOR EXAM: Female, 33 years old. Pelvic pain and fullness LMP: Unknown. TECHNIQUE: Transabdominal TECHNICAL QUALITY: Adequate. COMPARISON: 07/04/2024 FINDINGS: The uterus is anteverted and is in a midline position. The uterus measures 7.2 x 4.9 x 3.1 cm. Normal uterine cervix. The endometrium measures 5.5 mm in thickness, and is hyperechoic. There is no demonstrated endometrial mass. A previously noted fibroid is not seen on this study. I.U.D. - The patient does not have an I.U.D. The right ovary is visualized. The right ovary measures 2.4 x 1.3 x 1.4 cm. There is no right ovarian cyst or ovarian mass. There is no visualized right adnexal mass or complex lesion. There is normal arterial and normal venous vascularity. The left ovary is visualized. The left ovary measures 1.9 x 1.7 x 1.4 cm. There is no left ovarian cyst or ovarian mass. There is no visualized left adnexal mass or complex lesion. There is normal arterial and normal venous vascularity. There is no fluid in the cul-de-sac. The bladder is incompletely distended US/Pelvic (Non ) IMPRESSION: No suspicious sonographic findings Electronically Signed: Alex Hidalgo MD at 11:47 EST ,
== END | disposition home or self-care (01) ==
PROVIDERS: PCP Family Medicine; Referring Provider Obstetrics & Gynecology; Visit Provider Obstetrics & Gynecology
DX: R10.2 Pelvic and perineal pain (principal)
CPT/HCPCS: 76856